=== PATIENT | female | born 1960 | race Caucasian/White ===

== ENCOUNTER → 2020-06-01 15:00 | Outpatient (BNVA) | payer OTHER, SELFPAY | PROVIDERS: PCP Internal Medicine; Visit Provider Student in an Organized Health Care Education/Training Program | DX: Z76.89 Persons encountering health services in other specified circumstances (principal) ==

== ENCOUNTER 2020-09-17 14:04 | Outpatient (REF) | payer MEDICARE, OTHER, MEDICAID, SELFPAY | END 2020-09-17 14:05 | disposition home or self-care (01) | LOC: HO.LNP 14:04 | PROVIDERS: Visit Provider Hospitalist | DX: J01.90 Acute sinusitis, unspecified (principal); Z20.822 Contact with and (suspected) exposure to COVID-19 | CPT/HCPCS: U0003; U0005 ==

== ENCOUNTER 2020-09-21 14:37 | Emergency (ER) | payer MEDICARE, MEDICAID, SELFPAY ==
--- NOTE | ~2020-09-21 | CT_ITS ---
EXAMINATION: CT ANGIOGRAM OF THE CHEST WITH AND WITHOUT CONTRAST (CT PULMONARY ANGIOGRAM FOR PE) CLINICAL INFORMATION: Reason for Exam + covid c cough and sob/chest tighness COMPARISON: CTA chest 02/11/2015, CT abdomen pelvis 12/05/2019 TECHNIQUE: Prior to contrast administration, noncontrast localization images were obtained. Subsequently, multidetector volumetric imaging was performed from the thoracic inlet to below the diaphragms following the administration of 63 mL Omnipaque 350 intravenous contrast. No contrast reaction reported Sagittal, coronal, and MIP oblique sagittal reformatted images were obtained on the CT workstation, uploaded to PACS, and reviewed. This CT examination was performed using dose optimization techniques as appropriate, variously including the following: *Automated exposure control *Adjustment of mA and/or kV according to patient size (this includes techniques or standardized protocols for targeted exams where dose is matched to indication/reason for exam; i.e. extremities or head) *Use of iterative reconstruction technique Total exam dose-length product 301 mGy-cm FINDINGS: QUALITY OF STUDY/CONTRAST BOLUS: Satisfactory. PULMONARY ARTERIES: No central or segmental pulmonary emboli. THORACIC AORTA: No aneurysm or dissection. LUNG: Multifocal peripheral groundglass infiltrates are present involving all lobes. These findings are all new when compared to the prior study. No suspicious lung masses are seen. PLEURA: No pleural effusion or pneumothorax. MEDIASTINUM: Normal heart size. No pericardial effusion. No hilar or mediastinal lymphadenopathy. No evidence of septal bowing or right heart strain. CHEST WALL/AXILLA: No axillary or internal mammary lymphadenopathy. OSSEOUS STRUCTURES: No acute or suspicious osseous abnormality. UPPER ABDOMEN: Hepatic steatosis is present in this patient status post cholecystectomy. No reflux of contrast into the hepatic veins to suggest elevated right heart pressures. CT/CT angio chest PE protocol IMPRESSION: 1. No evidence of pulmonary emboli. 2. Commonly reported imaging features of Covid 19 or viral pneumonia are present with multifocal peripheral groundglass infiltrates. Other processes such as influenza pneumonia or organizing pneumonia, as can be seen with drug toxicity and connective tissue disease, can cause a similar imaging pattern. 3. Hepatic steatosis status post cholecystectomy VTE: negative
[2020-09-21 14:42] VITALS: BP 120/69; BP 132/70; PULSE 82; PULSE 89; RESP 16; TEMP 37.4; O2SAT 95; O2SAT 98; BMI 31.1
--- NOTE | 2020-09-21 15:12 | ECG_ITS ---
Test Reason : SHORTNESS OF BREATH Blood Pressure : / mmHG Vent. Rate : 077 BPM Atrial Rate : 077 BPM P-R Int : 140 ms QRS Dur : 084 ms QT Int : 364 ms P-R-T Axes : -13 -04 183 degrees QTc Int : 411 ms Normal sinus rhythm Minimal voltage criteria for LVH, may be normal variant T wave abnormality, consider lateral ischemia Abnormal ECG When compared with ECG of 11-FEB-2015 14:36, Inverted T waves have replaced nonspecific T wave abnormality in Lateral leads Referred By: Leia Villalta Electronically Signed By:NADER MATUTE
--- NOTE | 2020-09-21 15:22 | ED_ITS ---
HPI - SOB/Dyspnea General Chief Complaint: Dyspnea Stated Complaint: SHORTNESS OF BREATH Time Seen by Provider: 09/21/20 14:47 Source: patient History of Present Illness HPI Narrative: 59-year-old female with a past medical history of chronic back pain, anxiety, depression and fibromyalgia who tested positive for COVID on 09/17/2020 at her PCPs office although started having symptoms on 09/12/2020 who is currently on Augmentin and prednisone since Thursday prescribed by her PCP presenting to the ED with complaints of worsening shortness of breath, dyspnea on exertion, orthopnea with chest tightness for the past 3-4 days worse today. Reports an associated sore throat. Denies any fevers, dizziness, lightheadedness, changes in vision, paresthesias, nausea/vomiting, abdominal pain, diarrhea, black or bloody stools, hematuria, dysuria or any other symptoms complaints or concerns at this time. Patient is not on any blood thinners. MD elicited complaint: shortness of breath, cough and pain with inspiration Pertinent past history: other (Tested positive for COVID on 09/17/2020) Onset (ago): day(s) (3-4 days) Context: recent illness (Tested positive for COVID on 09/17/2020) Timing: constant and progressively worsening Severity: moderate Exacerbating factors: lying flat, exertion, coughing, inspiration and deep breaths Relieving factors: nothing Known history of: other (Tested positive for COVID 09/17/2020) Associated symptoms: chest pain (Chest tightness), pain with inspiration, cough and orthopnea Treatment prior to arrival: other (Patient has been on Augmentin and prednisone since Thursday and no symptomatic relief) Related Data Home Medications Medication Instructions Recorded Confirmed loratadine 10 mg tablet 10 mg PO DAILY 06/01/20 09/17/20 naproxen 250 mg tablet 250 mg PO BID PRN 06/01/20 09/17/20 trazodone 50 mg tablet 50 mg PO DAILY 06/01/20 09/17/20 venlafaxine 150 mg 150 mg PO DAILY 06/01/20 09/17/20 capsule,extended release 24 hr venlafaxine 75 mg tablet 75 mg PO DAILY 06/01/20 09/17/20 Previous Rx's Medication Instructions Recorded gabapentin 300 mg capsule 300 mg PO BID 30 Days #60 cap 06/01/20 amoxicillin 875 mg-potassium 1 tab PO BID #20 tab 09/17/20 clavulanate 125 mg tablet prednisone 20 mg tablet 20 mg PO .COMPLEX #18 tab 09/17/20 acetaminophen [Tylenol Extra 1,000 mg PO QID PRN #14 tab 09/21/20 Strength] albuterol sulfate 0.63 mg INHALATION QID PRN #75 ml 09/21/20 azithromycin See Rx Instructions .ROUTE 09/21/20 .COMPLEX #6 tab codeine-guaifenesin 10 ml PO Q4-6H PRN #473 ml 09/21/20 dexamethasone [Decadron] 6 mg PO DAILY 7 Days #7 tab 09/21/20 ibuprofen 800 mg PO Q8H PRN #14 tab 09/21/20 Allergies Allergy/AdvReac Type Severity Reaction Status Date / Time No Known Allergies Allergy Verified 09/17/20 10:50 Review of Systems Review of Systems: Constitutional : + Chills, + Fatigue, + Malaise, No Weight loss, No Fever, No Night Sweats ENT/Mouth : + Sore throat, No Hearing loss, No Ear Pain, No Nasal Congestion, No Sinus Pain, No Hoarseness, No Rhinorrhea, No Swallowing Difficulty Eyes: No Eye Pain, No Swelling, No Redness, No Foreign Body, No Discharge, No Vision Changes Cardiovascular : + Chest tightness, + SOB, + MOY, + orthopnea, No Edema, No extremity swelling, No Palpitations Respiratory : No Cough, No Sputum, No Wheezing, No Dyspnea Gastrointestinal : No Nausea, No Vomiting, No Diarrhea, No abdominal Pain, No Hematochezia, No Melena Genitourinary : No irregular bleeding, No Dysuria, No Urinary Frequency, No Hematuria, No Urinary Incontinence, No Urgency, No Flank Pain, No Urinary Flow Changes, No Hesitancy Musculoskeletal : No joint pain, + Myalgias, No Joint Swelling Skin : No Skin Lesions, No rash Neuro : No Weakness, No Numbness, No Paresthesias, No Loss of Consciousness, No Dizziness, No Headache Psych : No Anxiety/Panic, No Depression, No SI/HI/AH/VH Heme/Lymph: No Bruising, No Bleeding,No Lymphadenopathy Endocrine : No Polyuria, No Polydipsia, No Temperature Intolerance Yes all other systems are reviewed and are negative [facility] Past Medical History Attestation statement: The following information was validated with the patient. Medical History Anxiety Chronic back pain Depression Fibromyalgia Homeless Social History Social History Alcohol intake: never Smoking Status: Never smoker Advance Directives: Yes Advance Directives Information Provided: Yes Advance Directives on File: No Physical Exam Vital Signs: Vital Signs: Last Vital Signs Temp 99.3 F 09/21/20 14:42 Pulse 82 09/21/20 14:42 Resp 16 09/21/20 14:42 BP 132/70 09/21/20 14:42 Pulse Ox 98 09/21/20 14:42 Body Mass Index 31.1 vital signs have been reviewed as normal and appeared to be correct. Blood pr essure normal. Heart rate normal. Respiration rate normal. Temperature normal. Oxygen saturation normal. Appearance: Alert. Oriented X3. No acute distress. Head: Normal external exam. Normocephalic. Eyes: PERRLA. EOMI. Conjunctiva and sclera normal. Eyelids normal. ENT: Pharynx normal. Uvula midline. Moist mucous membranes. No trismus noted. No drooling noted. No muffled voice noted. Neck: Normal inspection. Neck supple. FROM. No adenopathy. No meningeal signs. CVS: Normal heart rate and rhythm. Heart sound normal. No murmurs noted. Pulses normal throughout. Respiratory: No respiratory distress. Painless inspiration. Breath sounds normal. No wheezes/rales/rhonchi noted. Chest nontender. No accessory muscle usage noted or decreased air movement noted. Abdomen: Soft and nontender. Nondistended. No guarding. No rigidity. Bowel sounds normal in all 4 quadrants. No distention noted. No organomegaly noted. No visible injury noted. No rebound tenderness. Negative Rovsing sign. Negative obturator's sign. Negative psoas sign. Negative Mcintyre sign. Back: No CVA tenderness. Full range of motion noted. Skin: Skin warm and dry. Normal skin color. Normal skin turgor. No rashes/lesions/lacerations noted. Extremities: No calf tenderness noted. No lower extremity edema noted. Extremities exhibit normal range of motion. Extremities nontender. Neuro: Oriented X 3. No motor deficit. No sensory deficit. Reflexes normal. Course Course Course Narrative: 15:15pm - 59-year-old female who tested positive for COVID on 09/17/2020 presenting to the ED with complaints of dry cough with shortness of breath/dyspnea on exertion/orthopnea and chest tightness over the past 3-4 days worse today despite being on Augmentin and prednisone. Patient also reports associated sore throat. - on exam patient is alert and oriented x3. Not in any acute distress. Vital signs are stable within normal limits patient's oxygen saturation 98% on room air. No focal neuro deficits are noted. Patient goes into coughing fits otherwise lungs are clear to auscultation. No wheezes/rales/rhonchi. CV RRR. Abdomen is soft and nontender. No lower extremity edema noted. No calf tenderness noted. - Plan: Labs, CTA of chest for PE, EKG, blood cultures and lactic acid. Provide a L of IV fluids, 10 mg of Robitussin with codeine, 10 mg of IV Decadron provided 2 g of Rocephin and re-evaluate. Reevaluation(s) Reevaluation #1: - white blood cell count 07783. Patient mild anemia. D-dimer 346. Potassium 3.2. Glucose 160. ALT 33. CRP 4.41. All other labs are within normal limits. - EKG is normal sinus rhythm no acute ischemic changes are noted similar compared to prior EKG. - will replace the patient's potassium by IV potassium at this time. - patient awaiting CTA of chest for PE if negative patient can be discharged home with p.o. antibiotics and steroids with instructions to monitor her oxygen saturation to continue self isolating and to return if any new or worsening symptoms. Patient understands agrees with this plan. Time: 16:44 [facility] - SOB/Dyspnea Medical Records Attestation: I reviewed the patient's medical records. Lab Data Attestation: I reviewed the patient's lab results. Result diagrams: 09/21/20 15:53 09/21/20 15:52 Labs: Lab Results 09/21/20 09/21/20 Range/Units 15:53 15:53 WBC 11.1 H (4.8-10.8) X10*3/uL RBC 4.11 L (4.20-5.50) X10*6/uL Hgb 11.8 L (12.0-16.0) g/dl Hct 35.4 L (37-47) % MCV 86.1 (80-98) fL MCH 28.7 (27.0-33.0) pg MCHC 33.3 (31.0-35.0) g/dl RDW 13.5 (11.0-16.0) % Plt Count 256 (160-400) X10*3/uL MPV 9.5 (9.4-12.3) fL Immature Gran % (Auto) 0.7 H (0.0-0.4) % Neut % (Auto) 89.1 H (45-73) % Lymph % (Auto) 5.9 L (20-40) % Cataño % (Auto) 4.2 (2-11) % Eos % (Auto) 0.0 (0-4) % Baso % (Auto) 0.1 (0-2) % Lymph # (Auto) 0.7 L (1.2-4.9) X10*3/uL Cataño # (Auto) 0.5 (0.1-1.2) X10*3/uL Eos # (Auto) 0.0 (0.0-0.4) X10*3/uL Baso # (Auto) 0.0 (0.0-0.2) X10*3/uL Abs Immat Gran (auto) 0.08 H (0.00-0.03) X10*3/uL Absolute Neuts (auto) 9.9 H (2.0-8.3) X10*3/uL Absolute Nucleated RBC 0.000 (0.0-0.012) X10*3/uL Nucleated RBC % (auto) 0.0 (0.0-0.2) /100WBC PT 14.1 H (10.8-13.0) SEC INR 1.2 H (0.9-1.1) APTT 24.3 (24.1-38.0) SEC D-Dimer 346 NG/ML ECG Data Attestation: I personally reviewed and interpreted this ECG as follows: ECG interpretation date: 09/21/20 ECG interpretation time: 15:30 Interpretation: Normal sinus rhythm ventricular rate of 77 with minimal voltage criteria for LVH may be normal variant with T-wave abnormalities no acute is chemic changes are noted today. Similar when compared to prior EKG on 02/11/2015 Critical Care Time Critical Care Time Critical Care Time: Yes Total Critical Care Time: 60 Attestation: I personally attest to this time spent taking care of the patient Discharge Plan Discharge Clinical Impression: COVID-19 Instructions: COVID-19 (Coronavirus Disease 2019) (ED) Prescriptions: New albuterol sulfate 0.63 mg/3 mL solution for nebulization 0.63 mg inhalation QID PRN (Reason: shortness of breath or wheezing) Qty: 75 RF: 0 azithromycin 250 mg tablet See Rx Instructions .ROUTE .COMPLEX Qty: 6 RF: 0 acetaminophen [Tylenol Extra Strength] 500 mg tablet 1,000 mg PO QID PRN (Reason: fever or pain) Qty: 14 RF: 0 ibuprofen 800 mg tablet 800 mg PO Q8H PRN (Reason: pain) Qty: 14 RF: 0 codeine-guaifenesin 10-200 mg/5 mL liquid 10 ml PO Q4-6H PRN (Reason: cough) Qty: 473 RF: 0 dexamethasone [Decadron] 6 mg tablet 6 mg PO DAILY 7 Days Qty: 7 RF: 0 No Action gabapentin 300 mg capsule 300 mg PO BID 30 Days Qty: 60 RF: 2 prednisone 20 mg tablet 20 mg PO .COMPLEX Qty: 18 RF: 0 amoxicillin-pot clavulanate [Augmentin] 875-125 mg tablet 1 tab PO BID Qty: 20 RF: 0 venlafaxine [Effexor XR] 150 mg capsule,extended release 24hr 150 mg PO DAILY RF: 0 venlafaxine 75 mg tablet 75 mg PO DAILY RF: 0 naproxen 250 mg tablet 250 mg PO BID PRNRF: 0 trazodone 50 mg tablet 50 mg PO DAILY RF: 0 loratadine [Claritin] 10 mg tablet 10 mg PO DAILY RF: 0 Referrals: Dunia Guajardo MD [Primary Care Provider] - 2 days Print Language: Croatian
[2020-09-21] MEDS: cefTRIAXone sodium 2 GM in 0.9 % Sodium Chloride 50 ML IV (15:57)
[2020-09-21] MEDS: 0.9 % Sodium Chloride 1,000 ML 999 ML IVCONT (15:57)
[2020-09-21] MEDS: guaiFEN/Codeine SF 200/20/10ML 10 ML LIQUID PO (15:58)
[2020-09-21] MEDS: Acetaminophen 325 MG TABLET 975 MG PO (15:58)
[2020-09-21 16:06] LABS: Basophils Percent Auto 0.1 % (0-2); Hematocrit 35.4 % (37-47); Hemoglobin 11.8 g/dl (12.0-16.0); Imm Gran Abs Auto 0.08 X10*3/uL (0.00-0.03); Imm Gran Pct Auto 0.7 % (0.0-0.4); Lymphocytes Absolute Auto 0.7 X10*3/uL (1.2-4.9); Lymphocytes Percent Auto 5.9 % (20-40); MANUAL DIFF FLAG SCAN; Mean Corpuscular HGB Conc 33.3 g/dl (31.0-35.0); Mean Corpuscular Hemoglobin 28.7 pg (27.0-33.0); Mean Corpuscular Volume 86.1 fL (80-98); Mean Platelet Volume 9.5 fL (9.4-12.3); Monocytes Absolute Auto 0.5 X10*3/uL (0.1-1.2); Monocytes Percent Auto 4.2 % (2-11); Neutrophils Absolute Auto 9.9 X10*3/uL (2.0-8.3); Neutrophils Percent Auto 89.1 % (45-73); Platelet Count 256 X10*3/uL (160-400); Red Blood Count 4.11 X10*6/uL (4.20-5.50); Red Cell Distribution Width 13.5 % (11.0-16.0); SCAN SMEAR FLAG 1; White Blood Count 11.1 X10*3/uL (4.8-10.8)
[2020-09-21 16:22] LABS: INTERNATIONAL NORM RATIO 1.2 (0.9-1.1); Prothrombin Time 14.1 SEC (10.8-13.0)
[2020-09-21 16:25] LABS: D Dimer 346 NG/ML; Partial Thromboplastin Time 24.3 SEC (24.1-38.0)
[2020-09-21 16:37] LABS: Alanine Aminotransferase 33 U/L (0-31); Albumin Level 3.4 g/dL (3.5-5.0); Alkaline Phosphatase 111 U/L (39-117); Anion Gap 11 (12-20); Aspartate Amino Transferase 26 U/L (5-31); Bilirubin Total 0.3 mg/dL (0.0-1.0); Blood Urea Nitrogen 13 mg/dL (9-16); C Reactive Protein 4.41 mg/dL (< or = 0.50); Calcium 8.4 mg/dL (8.4-10.2); Carbon Dioxide 27 mmol/L (22-29); Chloride 104 mmol/L (96-108); Estimated Glomerular Filt Rate > 60; Glucose Random 160 mg/dL (60-115); Lactate Dehydrogenase 197 U/L (122-220); Potassium 3.2 mmol/L (3.3-5.1); Sodium 139 mmol/L (135-145); Total Protein 6.3 g/dL (6.5-8.0)
[2020-09-21 16:37] LABS: SLIDE REVIEW VERIFIED
[2020-09-21 16:42] LABS: B Type Natriuretic Peptide 58 pg/mL (<100); Troponin-I High Sensitivity < 3.5 ng/L (<3.5-17.0)
[2020-09-21 16:43] LABS: Influenza A PCR NEGATIVE (Negative); Influenza B PCR NEGATIVE (Negative); Resp Syncy Virus RNA Qual PCR NEGATIVE (Negative); SARS COV2 PCR INHOUSE POSITIVE (Negative)
[2020-09-21 16:56] LABS: Ferritin 157 ng/mL (10-250); Procalcitonin 0.02 ng/mL
[2020-09-21 17:13] LABS: Glucose Urine UA NEG (NEG); Leukocyte Esterase Urine NEG (NEG); Nitrite Urine NEG (NEG); Specific Gravity - Urine <= 1.005 (1.005-1.025); Urine Blood NEG (NEG); Urine Ketones NEG (NEG); Urine Protein NEG (NEG-TRACE)
[2020-09-21 17:15] VITALS: BP 103/65; PULSE 93; RESP 20; TEMP 36.8; O2SAT 97
[2020-09-21] MEDS: iohexoL 350 MG/ML 100 ML INFUS..BTL IV (17:15)
[2020-09-21 17:16] LABS: Color Urine STRAW
[2020-09-21 17:17] LABS: Appearance Urine CLEAR
[2020-09-21] MEDS: Potassium Chloride/H20 10 MEQ/100 ML PIGGYBACK 100 MEQ IV (17:33)
[2020-09-21] MEDS: Albuterol Sulfate 90 MCG 8 GM INHALER 4 PUFF INHALE (18:12)
[2020-09-21 18:13] VITALS: PULSE 67; O2SAT 96
[2020-09-21] MEDS: Potassium Chloride ER 20 MEQ TAB.ER.PRT 40 MEQ PO (19:29)
--- NOTE | 2020-09-21 19:39 | PC.NURSE ---
pt unable to tolerate Iv potassium- less than 1/2 infused, given po.
== END 2020-09-21 19:40 | disposition home or self-care (01) ==
PROVIDERS: Physician Assistant Medical; Emergency Provider Emergency Medicine; PCP Internal Medicine
DX: U07.1 COVID-19 (principal); R06.02 Shortness of breath
CPT/HCPCS: 0241U; 36415; 71275; 80053; 81003; 82728; 83615; 83735; 83880; 84145; 84484; 85025; 85379; 85610; 85730; 86140; 87040; 87071; 87880; 93005; 94640; 96361; 96365; 96367; 96375; 99283; 99291; J0696; J1100; Q9967

== ENCOUNTER 2021-01-04 12:18 | Outpatient (REF) | payer MEDICARE, MEDICAID, SELFPAY ==
--- NOTE | ~2021-01-04 | MM_ITS ---
EXAMINATION: MM SCREENING DIGITAL BREAST TOMOSYNTHESIS, BILATERAL CLINICAL INFORMATION: Screening. Asymptomatic. The lifetime risk of breast cancer based on the Tyrer-Cuzick Model is 7%. COMPARISON: Mammography: 7 01/06/2019, 12/09/2017, 10/01/2016 TECHNIQUE: Digital breast tomosynthesis is performed in both the craniocaudal and mediolateral oblique views along with computer-aided detection (CAD). Synthesized 2D images are generated from the tomosynthesis. Additional bilateral CC views are provided. FINDINGS: There are scattered areas of fibroglandular density (ACR BI-RADS breast composition Category b). There are no significant masses, abnormal calcifications, or other abnormalities. Dermal lesion again noted posterior upper outer left breast. The axilla and skin contours are unremarkable. No significant changes. MM/MM tomosynthesis screening BI IMPRESSION: There are no significant changes from prior study. ASSESSMENT: BI-RADS 2: Benign RECOMMENDATION: Routine annual mammography screening. This patient's information was entered into a reminder system with a target due date for their next mammogram.
== END 2021-01-04 12:19 | disposition home or self-care (01) ==
LOC: HO.MAMMO 12:18
PROVIDERS: Visit Provider Internal Medicine
DX: Z12.31 Encounter for screening mammogram for malignant neoplasm of breast (principal)
CPT/HCPCS: 77063; 77067

== ENCOUNTER 2021-04-10 13:57 | Outpatient (REF) | payer MEDICARE, MEDICAID, SELFPAY ==
--- NOTE | ~2021-04-10 | XR_ITS ---
EXAMINATION: XR SHOULDER, RIGHT CLINICAL INFORMATION: Pain in right shoulder COMPARISON: 12/10/2017 TECHNIQUE: AP external rotation, Grashey, scapular Y, and axillary views of the right shoulder. FINDINGS: No fracture or dislocation. The glenohumeral joint is well aligned. The joint space is maintained. The acromioclavicular joint is intact with mild hypertrophic degenerative change. The visualized lung is clear. The visualized ribs are intact. XR/XR shoulder RT min 2V IMPRESSION: Mild degenerative changes at the acromioclavicular joint.
--- NOTE | ~2021-04-10 | XR_ITS ---
EXAMINATION: XR LUMBOSACRAL SPINE CLINICAL INFORMATION: Lower back pain COMPARISON: 11/30/1949 TECHNIQUE: Three views of the lumbosacral spine. FINDINGS: Right upper quadrant surgical clips. No fracture or subluxation. Slight dextroscoliosis. Vertebral body height and alignment otherwise maintained. Disc spaces are mostly maintained. Small multilevel endplate osteophytes throughout with facet arthropathy. The sacroiliac joints are symmetric. The sacrum is intact. Nonobstructive bowel gas pattern. XR/XR lumbar spine 2-3V IMPRESSION: Mild degenerative changes throughout the lumbar spine, somewhat progressed from 2015.
== END 2021-04-10 13:58 | disposition home or self-care (01) ==
LOC: HO.XRAY 13:57
PROVIDERS: PCP Internal Medicine; Visit Provider Nurse Practitioner Family
DX: M54.50 Low back pain, unspecified (principal); M25.511 Pain in right shoulder; M79.7 Fibromyalgia; F41.8 Other specified anxiety disorders; Z79.899 Other long term (current) drug therapy
CPT/HCPCS: 72100; 73030; 99212

== ENCOUNTER 2021-05-31 14:00 | Outpatient (RCR) | payer MEDICARE, MEDICAID, SELFPAY ==
--- NOTE | 2021-05-13 15:03 | MHC.PT.EP ---
[facility] [place] Office [place] Office [place] Office [address] [phone] F: [phone] F: [phone] F: [phone] F: [phone] Physical Therapy Plan of Care Date of Evaluation: Date of Surgery: n/a Diagnosis: low back pain Assessment: Patient is a 60 year old R handed female who presents with s/s consistent with low back pain. She is on disability. She notes she has a tough time standing or sitting for long periods of time. Patient past medical history includes fibromyalgia. Current impairments include pain, flexibility, ROM, strength, activity tolerance and functional mobility. Functional limitations include decreased ability to walk, stand, transfer, negotiate stairs, and perform weight bearing activities.. Patient is motivated with good rehab potential. Skilled PT will address impairments and functional limitations in order to achieve goals. Frequency and Duration: The patient will be seen 2x/week for 5 weeks Short Term Goals: I with HEP - 2 weeks stable innom - 3 weeks hip strength 4/5 b/l hip abd - 3 weeks Cider [employer] Goals: hip abd 4+/5 b/l hip abd - 5 weeks Demo proper squat, lift, supine/sit mechanics in absence of cues - 5 weeks Oswestry 20% or less - 5 weeks Treatment Plan: Modalities to reduce pain, spasms and effusion. Manual therapy to restore motion and function. Therapeutic exercise to improve strength and flexibility. Neuromuscular re-education for posture and balance. Therapeutic activities to return to functional activities of daily living. Electronically signed by: Konstantin Alva, PT Please sign and return to therapist. Thank you for your referral.
--- NOTE | 2021-10-16 08:50 | MHC.PT.DC ---
[facility] [place] Office [place] Office [place] Office [address] [phone] F: [phone] F: [phone] F: [phone] F: [phone] Physical Therapy Discharge Report Diagnosis: low back pain Date of Surgery: n/a Date of Evaluation: 05/13/21 Date of Discharge: 05/31/21 Treatments to Date: 2 Cancellations to Date: No Shows to Date: Discharge Status: Patient Elected to Stop Discharge Summary: HELD PT at this time. 05/31/21: pt progressing well overall with good activity tolerance. unable to attend last week due to covid exposure. we will progress HEP NV. Patient is a 60 year old R handed female who presents with s/s consistent with low back pain. She is on disability. She notes she has a tough time standing or sitting for long periods of time. Patient past medical history includes fibromyalgia. Current impairments include pain, flexibility, ROM, strength, activity tolerance and functional mobility. Functional limitations include decreased ability to walk, stand, transfer, negotiate stairs, and perform weight bearing activities.. Patient is motivated with good rehab potential. Skilled PT will address impairments and functional limitations in order to achieve goals. Electronically signed by: Konstantin Alva, PT Please sign and return to therapist. Thank you for your referral.
== END 2021-10-16 08:51 | disposition home or self-care (01) ==
LOC: HO.PTCHIC 14:00
PROVIDERS: PCP Internal Medicine; Visit Provider Nurse Practitioner Family
DX: M54.50 Low back pain, unspecified (principal); M25.511 Pain in right shoulder
CPT/HCPCS: 97110; 97140; 97161

== ENCOUNTER 2021-08-07 14:51 | Outpatient (REF) | payer MEDICARE, MEDICAID, SELFPAY ==
[2021-08-07 16:35] LABS: MANUAL DIFF FLAG NO
[2021-08-07 16:39] LABS: Basophils Percent Auto 0.5 % (0-2); Eosinophils Absolute Auto 0.2 X10*3/uL (0.0-0.4); Eosinophils Percent Auto 2.3 % (0-4); Hematocrit 41.7 % (37.0-47.0); Hemoglobin 13.8 g/dl (12.0-16.0); Imm Gran Abs Auto 0.05 X10*3/uL (0.00-0.03); Imm Gran Pct Auto 0.6 % (0.0-0.4); Lymphocytes Absolute Auto 2.4 X10*3/uL (1.2-4.9); Lymphocytes Percent Auto 26.9 % (20-40); Mean Corpuscular HGB Conc 33.1 g/dl (31.0-35.0); Mean Corpuscular Hemoglobin 29.1 pg (27.0-33.0); Mean Platelet Volume 10.1 fL (9.4-12.3); Monocytes Absolute Auto 0.7 X10*3/uL (0.1-1.2); Monocytes Percent Auto 8.2 % (2-11); Neutrophils Absolute Auto 5.5 x10*3/uL (2.0-8.3); Neutrophils Percent Auto 61.5 % (45-73); Platelet Count 262 X10*3/uL (160-400); Red Blood Count 4.74 X10*6/uL (4.20-5.50); Red Cell Distribution Width 13.9 % (11.0-16.0); White Blood Count 8.9 X10*3/uL (4.8-10.8)
[2021-08-07 17:07] LABS: Alanine Aminotransferase 17 U/L (0-31); Albumin Level 4.1 g/dL (3.5-5.0); Alkaline Phosphatase 156 U/L (39-117); Anion Gap 15 (12-20); Aspartate Amino Transferase 19 U/L (5-31); Bilirubin Total 0.6 mg/dL (0.0-1.0); Blood Urea Nitrogen 15 mg/dL (9-16); Calcium 9.8 mg/dL (8.4-10.2); Carbon Dioxide 26 mmol/L (22-29); Chloride 102 mmol/L (96-108); Cholesterol 197 mg/dL; Estimated Glomerular Filt Rate > 60; Glucose Fasting 113 mg/dL (60-99); HDL Cholesterol 51 mg/dL; LDL Cholesterol Calculated 128 mg/dl; Potassium 4.2 mmol/L (3.3-5.1); Sodium 139 mmol/L (135-145); Total Protein 7.6 g/dL (6.5-8.0); Triglycerides 91 mg/dL
[2021-08-07 17:27] LABS: TSH reflex Free T4 1.89 uIU/mL (0.32-4.0)
== END 2021-08-07 14:52 | disposition home or self-care (01) ==
LOC: HO.HMGCLDS 14:51
PROVIDERS: Visit Provider Internal Medicine
DX: Z00.01 Encounter for general adult medical examination with abnormal findings (principal); G47.9 Sleep disorder, unspecified; F33.9 Major depressive disorder, recurrent, unspecified; M54.50 Low back pain, unspecified
CPT/HCPCS: 36415; 80053; 80061; 84443; 85025

== ENCOUNTER → 2021-10-11 14:26 | Outpatient (BNVA) | payer MEDICARE, MEDICAID, SELFPAY | PROVIDERS: PCP Internal Medicine; Visit Provider Nurse Practitioner Family | DX: M25.511 Pain in right shoulder (principal); M54.50 Low back pain, unspecified; M79.7 Fibromyalgia | CPT/HCPCS: 99212 ==

== ENCOUNTER 2022-01-09 14:00 | Outpatient (REF) | payer MEDICARE, MEDICAID, SELFPAY ==
--- NOTE | ~2022-01-09 | MM_ITS ---
EXAMINATION: MM SCREENING DIGITAL BREAST TOMOSYNTHESIS, BILATERAL CLINICAL INFORMATION: Screening. Asymptomatic. The lifetime risk of breast cancer based on the Tyrer-Cuzick Model is 6%. COMPARISON: Mammography: 01/04/2021, 01/06/2019, 12/09/2017 TECHNIQUE: Digital breast tomosynthesis is performed in both the craniocaudal and mediolateral oblique views along with computer-aided detection (CAD). Synthesized 2D images are generated from the tomosynthesis. FINDINGS: There are scattered areas of fibroglandular density (ACR BI-RADS breast composition Category b). There are no significant masses, abnormal calcifications, or other abnormalities. Parenchymal pattern is similar to prior studies. Dermal lesion again noted overlying posterior upper outer left breast. The axilla are unremarkable. There are no significant changes. MM/MM tomosynthesis screening BI IMPRESSION: No mammographic evidence of malignancy. ASSESSMENT: BI-RADS 2: Benign RECOMMENDATION: Routine annual mammography screening. This patient's information was entered into a reminder system with a target due date for their next mammogram.
== END 2022-01-09 14:01 | disposition home or self-care (01) ==
LOC: HO.MAMMO 14:00
PROVIDERS: PCP Internal Medicine; Visit Provider Internal Medicine
DX: Z12.31 Encounter for screening mammogram for malignant neoplasm of breast (principal)
CPT/HCPCS: 77063; 77067

== ENCOUNTER 2022-04-10 15:29 | Outpatient (REF) | payer MEDICARE, MEDICAID, SELFPAY ==
--- NOTE | ~2022-04-10 | XR_ITS ---
EXAMINATION: XR SHOULDER, LEFT CLINICAL INFORMATION: Left shoulder pain. COMPARISON: None TECHNIQUE: AP external rotation, Grashey, scapular Y, and axillary views of the left shoulder. FINDINGS: There is calcification in the supraspinatus tendon indicative of tendinitis/tendinosis. The bones and soft tissues are otherwise unremarkable. No fracture. Glenohumeral and acromioclavicular alignment is anatomic with normal joint space. XR/XR shoulder LT min 2V IMPRESSION: Calcific tendinitis/tendinosis left shoulder.
[2022-04-10 16:39] LABS: Alanine Aminotransferase 22 U/L (0-31); Albumin Level 4.3 g/dL (3.5-5.0); Alkaline Phosphatase 149 U/L (39-117); Anion Gap 15 (12-20); Aspartate Amino Transferase 23 U/L (5-31); Bilirubin Total 0.3 mg/dL (0.0-1.0); Blood Urea Nitrogen 16 mg/dL (9-16); Calcium 9.6 mg/dL (8.4-10.2); Carbon Dioxide 26 mmol/L (22-29); Chloride 104 mmol/L (96-108); Estimated Glomerular Filt Rate > 60; Glucose Random 107 mg/dL (60-115); Potassium 4.5 mmol/L (3.3-5.1); Sodium 140 mmol/L (135-145); Total Protein 7.6 g/dL (6.5-8.0)
== END 2022-04-10 15:30 | disposition home or self-care (01) ==
LOC: HO.LAB 15:29
PROVIDERS: PCP Internal Medicine; Visit Provider Nurse Practitioner Family
DX: M79.7 Fibromyalgia (principal); M25.511 Pain in right shoulder; M25.512 Pain in left shoulder; M54.50 Low back pain, unspecified
CPT/HCPCS: 36415; 73030; 80053; 99212

== ENCOUNTER 2022-05-05 14:00 | Outpatient (REF) | payer MEDICARE, MEDICAID, SELFPAY ==
--- NOTE | 2022-05-05 17:14 | PFT_ITS ---
INDICATION: Shortness of breath. SPIROMETRY: FEV1 to FVC of 86% with an FEV1 of 2.63 L, which is 111% predicted. FVC of 3.07 L, which is 102% predicted. No significant response to bronchodilators noted. Maximum voluntary ventilation 117% predicted. LUNG VOLUMES: Total lung capacity 93% of predicted with an expiratory reserve volume of 64% predicted. DIFFUSION CAPACITY: DLCO 81% predicted. COMPARISONS: None. INTERPRETATION: No obstructive nor restrictive ventilatory defects identified. No significant response to bronchodilators noted. Normal maximum voluntary ventilation. Lung volumes are within normal limits. Diffusion capacity also within normal limits. Clinical correlation warranted. No clear explanations for the patient's symptoms based on these PFTs. To Britton MD MR/MODL / [id number]
== END 2022-05-05 14:01 | disposition home or self-care (01) ==
LOC: HO.RESP 14:00
PROVIDERS: PCP Internal Medicine; Visit Provider Nurse Practitioner Family
DX: R06.02 Shortness of breath (principal)
CPT/HCPCS: 94060; 94727; 94729

== ENCOUNTER 2022-05-15 17:24 | Inpatient (IN) | payer MEDICARE, MEDICAID, SELFPAY ==
--- NOTE | ~2022-05-15 | CT_ITS ---
EXAMINATION: CT ABDOMEN AND PELVIS WITH CONTRAST CLINICAL INFORMATION: Abdominal pain. COMPARISON: 05/15/2022 TECHNIQUE: Multidetector volumetric images were obtained from the superior aspect of the liver through the pubic symphysis following administration 85 mL of Omnipaque 350 intravenous contrast. Sagittal and coronal reformatted images were obtained on the technologist's workstation. Oral contrast: No This CT examination was performed using dose optimization techniques as appropriate, variously including the following: *Automated exposure control *Adjustment of mA and/or kV according to patient size (this includes techniques or standardized protocols for targeted exams where dose is matched to indication/reason for exam; i.e. extremities or head) *Use of iterative reconstruction technique DLP: 573 mGy-cm FINDINGS: LUNG BASES: Unremarkable. LIVER: Liver has normal size and contour. The liver parenchyma has attenuation approximately 30 Hounsfield units lower than the spleen on these portal venous phase images; this suggests presence of diffuse steatosis. No evidence of liver mass. GALLBLADDER AND BILIARY TREE: Gallbladder is surgically absent. No dilated bile ducts. PANCREAS: Normal. No edema, pancreatic ductal dilatation or mass. SPLEEN: Normal. ADRENAL GLANDS: Normal. KIDNEYS AND URETERS: The kidneys have normal size and cortical thickness. No perinephric edema or fluid collection. No urolithiasis or hydroureteronephrosis. BLADDER: Normal. No calculi or wall thickening. BOWEL AND PERITONEUM: Stomach and small bowel are unremarkable. The terminal ileum has a normal appearance. No dilated bowel loops. There is suboptimal distention of the colon, including ascending colon. However, the gaseous distention of this portion of the colon is improved compared to 05/15/2022. There is no edematous thickening of the bowel black. No findings of colitis. There is possible thickening of mucosa of the proximal ascending colon without involvement of the ileocecal valve or the cecum, but evaluation is difficult due to lack of colonic distention and presence of intraluminal fluid (coronal reformatted images 12-18 of 76, series 5; sagittal reformatted image 83, series 6). This area of concern is approximately 4.5 cm in length. It is uncertain whether there is any underlying colonic neoplasia in this area. If the patient has not recently undergone colonoscopy, then recommend colonoscopic examination. Again noted is a mild adjacent vascular engorgement and clustered lymph nodes in the mesentery, largest mesenteric lymph node 0.8 cm short axis dimension. The hepatic flexure of the colon is underdistended but without gross abnormality. The descending colon, sigmoid colon and rectum are unremarkable. ABDOMINAL WALL: Minimal protrusion of fat into the umbilicus. VASCULATURE: Unremarkable. LYMPH NODES: No retroperitoneal, iliac or inguinal lymphadenopathy. A lymph node in the periportal region is 1 cm in short axis dimension. Again, there are clustered mesenteric lymph nodes posterior to the ascending colon, largest 0.8 cm short axis dimension. PELVIC VISCERA: Uterus and adnexa are unremarkable. No pelvic free fluid. MUSCULOSKELETAL: No new skeletal findings compared to 05/15/2022. CT/CT abdomen pelvis w IV con IMPRESSION: * The ascending colon is not optimally distended, and there is possible mucosal thickening in a segment of the ascending colon. The suspicion for mucosal disease in the ascending colon is elevated due to the findings of mild vascular congestion and mild lymphadenopathy in the adjacent mesentery. If not already performed, consider further evaluation with colonoscopy. Colonic neoplasia is not excluded on this test. * Diffuse hepatic steatosis. Consider correlation with liver function tests. A mildly enlarged lymph node of 1 cm short axis dimension in the periportal region could be reactive to liver disease.
--- NOTE | ~2022-05-15 | CT_ITS ---
EXAMINATION: CT ABDOMEN AND PELVIS WITHOUT CONTRAST CLINICAL INFORMATION: Right suprapubic pain. COMPARISON: CT abdomen/pelvis 12/05/2019. TECHNIQUE: Multidetector volumetric imaging was performed from the superior aspect of the liver through the pubic symphysis. Sagittal and coronal reformatted images were obtained on the technologist's workstation. This CT examination was performed using dose optimization techniques as appropriate, variously including the following: *Automated exposure control *Adjustment of mA and/or kV according to patient size (this includes techniques or standardized protocols for targeted exams where dose is matched to indication/reason for exam; i.e. extremities or head) *Use of iterative reconstruction technique DLP: 606 mGy-cm FINDINGS: LUNG BASES: No focal consolidation or pleural effusion. LIVER, GALLBLADDER, AND BILIARY TREE: Decreased attenuation of the liver parenchyma suggesting the presence of hepatic steatosis. No discrete focal liver lesion noted in this limited noncontrast examination. Cholecystectomy. No biliary ductal dilatation. PANCREAS: Limited noncontrast examination, unremarkable. SPLEEN: Limited noncontrast examination, unremarkable. ADRENAL GLANDS: No adrenal mass. KIDNEYS AND URETERS: Limited noncontrast examination. No nephrolithiasis or hydronephrosis. BLADDER: Decompressed and suboptimally assessed. GASTROINTESTINAL TRACT: There is abnormal wall thickening of the ascending colon extending from the cecum to the level of the hepatic flexure; the ileocecal valve appears as well involved. There are several abnormal appearing rounded pericolonic lymph nodes, for instance measuring 9 mm on image 48, series 3. There is associated regional mesenteric vasculature engorgement. The stomach and the small bowel are nondilated. ABDOMINAL WALL: Small fat-containing umbilical hernia. LYMPH NODES: Abnormal appearance of pericolonic soft tissue nodules/lymph nodes surrounding the ascending colon. There are enlarged periportal lymph nodes which are nonspecific in the setting of hepatic steatosis. VASCULAR: Limited noncontrast examination. Abdominal aorta is of normal caliber. PELVIC VISCERA: Unremarkable. OSSEOUS STRUCTURES: Prominent Schmorl's nodule along the superior endplate of L3. Multilevel degenerative changes of the spine. No destructive appearing osseous lesions. CT/CT abdomen pelvis wo IV con IMPRESSION: Findings are highly suspicious for a colonic neoplasm of the ascending colon with possible extension into the ileocecal valve. The mass abuts the liver surface, however evaluation of metastatic disease is limited in this noncontrast examination. Recommend consultation with GI oncologist. There are abnormal lymph nodes and engorgement of the pericolonic vasculature at the site of the mass, concerning for transmural extension. As above, this examination is not targeted for staging. There are enlarged nonspecific periportal lymph nodes. Hepatic steatosis. This critical result was discussed with Gomez RAMOS at 05/15/2022 7:47 PM and it was ascertained that the content and urgency of the report was understood at the time of direct communication.
[2022-05-15 18:17] VITALS: BP 151/81; PULSE 94; RESP 18; TEMP 36.8; O2SAT 97; BMI 31.8
--- NOTE | 2022-05-15 18:21 | ED.GENADULT ---
HPI - General Adult General Chief complaint: Extremity Injury, Lower Stated complaint: pelvic pain Time Seen by Provider: 05/15/22 20:24 Related Data Home Medications Medication Instructions Recorded Confirmed venlafaxine 150 mg 150 mg PO DAILY 06/01/20 05/15/22 capsule,extended release 24 hr (Effexor XR) naproxen sodium 220 mg tablet 220 mg PO Q12H PRN Pain 10/11/21 05/15/22 (Aleve) trazodone 50 mg tablet 50 mg PO BEDTIME 10/11/21 05/15/22 lorazepam 1 mg tablet 0.5 mg PO DAILY PRN Anxiety 04/10/22 05/15/22 calcium carbonate 600 mg calcium 600 mg PO DAILY 05/15/22 05/15/22 (1,500 mg) tablet cholecalciferol (vitamin D3) 25 25 mcg PO DAILY 05/15/22 05/15/22 mcg (1,000 unit) tablet gabapentin 300 mg capsule 300 mg PO TID 05/15/22 05/15/22 vitamin B complex 1 tab PO DAILY 05/15/22 05/15/22 Allergies Allergy/AdvReac Type Severity Reaction Status Date / Time No Known Allergies Allergy Verified 04/10/22 14:53 PMFSH Past Medical History Medical History Anxiety Chronic back pain Depression Fibromyalgia Homeless Surgical History Hx of appendectomy Hx of cholecystectomy Family History Family History Mother Kidney cancer Father Medical history unknown Other Mental health disorder Social History Social History Household Members: Children Household Members Other:: 1 Housing: Apartment Do you presently have visiting nurse or other home services: No Alcohol intake: never Patient Tobacco Use Status: Former Tobacco user Tobacco use type: Cigarette Smoked in Last 30 Days: No e-Cigarette/Vaping Use: Never Used Patient Interested in Nicotine Replacement: No Patient Given Instructions on How to Stop Smoking: No Second Hand Smoke Exposure: No Use of substances other than those prescribed or required for medical reasons: No Currently Displaying Signs/Symptoms of Drug Intoxication Withdrawal: No Any prior treatment program specific to substance use: No Have you been hit, kicked, punched, or otherwise hurt by someone within the past year? If so, by whom?: No Do you feel safe in your current relationship?: No Current Relationship Is there a partner from a previous relationship who is making you feel unsafe now?: No Are you made to feel afraid or neglected: No Advance Directives: No Advance Directives Information Provided: No Do you have thoughts of harming others: None Do you have a plan to hurt others: No Plan Recently lost weight without trying: No Eating poorly because of decreased appetite: No Nutrition Risks: No Nutritional Risk Patient : No : No Poor oral hygiene: No Current occupational status: disabled Physical Exam ED Vital Signs: Vital Signs - 24 hr 05/15/22 18:17 05/15/22 21:09 Temperature 98.2 F 98.5 F Pulse Rate 94 81 Respiratory Rate 18 16 Blood Pressure 151/81 H 137/81 Pulse Oximetry 97 95 Oxygen Delivery Method Room Air Room Air BMI result Body Mass Index 31.8 Course Course Course Narrative: ISREAL: RIght suprapubic/hip pain since thursday. Pain on movement. Patient states no trauma. Patient states no urinary symptoms. FEmoral and pedal pulses intact. normal color of lower extremities. labs, UA, and CT scan of abdome/pelvis ordered. patient states no vaginal bleeding or pmh of ovarian cysts/fibroids. Medications Administered Generic Name Dose Route Start Last Admin Trade Name Freq PRN Reason Stop Dose Admin Heparin Sodium (Porcine) 5,000 unit 05/15/22 23:00 05/15/22 23:39 Heparin Sodium,Porcine 5,000 Unit/Ml Vial SUBCUT 5,000 unit Q12H MINDY Administration Sodium Chloride 3 ml 05/16/22 00:00 05/16/22 00:11 0.9 % Sodium Chloride Flush 3 Ml Syringe IVFLUSH Not Given QSHIFT MINDY Discontinued Medications Generic Name Dose Route Start Last Admin Trade Name Freq PRN Reason Stop Dose Admin Sodium Chloride 1,000 mls @ 999 mls/hr 05/15/22 21:00 05/16/22 01:17 Ns IVCONT 05/15/22 22:00 Infused .Q1H1M MINDY Infusion Ceftriaxone Sodium 1 gm/ 50 mls @ 100 mls/hr 05/15/22 20:59 05/16/22 00:00 Sodium Chloride IV 05/15/22 21:28 Infused ONCE ONE Infusion Lorazepam 1 mg 05/15/22 21:23 05/15/22 22:07 Lorazepam 1 Mg Tablet PO 05/15/22 21:24 1 mg ONCE ONE Administration Morphine Sulfate 4 mg 05/15/22 21:23 05/15/22 22:06 Morphine Sulfate 4 Mg/Ml Cartridge IVPUSH 05/15/22 21:24 4 mg ONCE ONE Administration Protocol Ondansetron HCl 4 mg 05/15/22 21:23 05/15/22 22:06 Ondansetron Hcl 4 Mg/2 Ml Vial IVPUSH 05/15/22 21:24 4 mg ONCE ONE Administration Polyethylene Glycol/Electrolytes 4,000 ml 05/15/22 21:45 05/15/22 23:39 Peg 3350/Na Sulf,Bicarb,Cl/Kcl 4,000 Ml Soln.Recon PO 05/15/22 21:46 4,000 ml ONCE ONE Administration Medical Decision Making Lab Data Result diagrams: 05/15/22 19:35 05/15/22 19:35 Labs: Lab Results 05/15/22 05/15/22 05/15/22 Range/Units 19:35 19:35 19:35 WBC 10.5 (4.8-10.8) X10*3/uL RBC 4.67 (4.20-5.50) X10*6/uL Hgb 13.7 (12.0-16.0) g/dl Hct 40.7 (37.0-47.0) % MCV 87.2 (80.0-98.0) fL MCH 29.3 (27.0-33.0) pg MCHC 33.7 (31.0-35.0) g/dl RDW 13.9 (11.0-16.0) % Plt Count 211 (160-400) X10*3/uL MPV 9.6 (9.4-12.3) fL Immature Gran % (Auto) 0.4 (0.0-0.4) % Neut % (Auto) 64.3 (45-73) % Lymph % (Auto) 24.1 (20-40) % [place] % (Auto) 9.8 (2-11) % Eos % (Auto) 1.1 (0-4) % Baso % (Auto) 0.3 (0-2) % Lymph # (Auto) 2.5 (1.2-4.9) X10*3/uL [place] # (Auto) 1.0 (0.1-1.2) X10*3/uL Eos # (Auto) 0.1 (0.0-0.4) X10*3/uL Baso # (Auto) 0.0 (0.0-0.2) X10*3/uL Abs Immat Gran (auto) 0.04 H (0.00-0.03) X10*3/uL Absolute Neuts (auto) 6.7 (2.0-8.3) x10*3/uL Absolute Nucleated RBC 0.000 (0.0-0.012) X10*3/uL Nucleated RBC % (auto) 0.0 (0.0-0.2) /100WBC Sodium 136 (135-145) mmol/L Potassium 3.9 (3.3-5.1) mmol/L Chloride 100 (96-108) mmol/L Carbon Dioxide 29 (22-29) mmol/L Anion Gap 11 L (12-20) BUN 16 (9-16) mg/dL Creatinine 0.83 (0.5-1.4) mg/dL Estim Creat Clear Calc 71.0 Estimated GFR > 60 Random Glucose 95 (60-115) mg/dL Lactic Acid (0.5-2.0) mmol/L Calcium 9.7 (8.4-10.2) mg/dL Total Bilirubin 0.4 (0.0-1.0) mg/dL AST 17 (5-31) U/L ALT 19 (0-31) U/L Alkaline Phosphatase 161 H (39-117) U/L Total Protein 7.2 (6.5-8.0) g/dL Albumin 4.0 (3.5-5.0) g/dL Carcinoembryonic Ag ng/mL Urine Color Dark Yellow Urine Appearance Clear Urine pH 5.5 (5.0-9.0) Ur Specific [place] 1.025 (1.005-1.025) Urine Protein Negative (Neg-Trace) mg/dL Urine Glucose (UA) Negative (Negative) mg/dL Urine Ketones Trace (Negative) mg/dL Urine Blood Negative (Negative) Urine Nitrite Negative (Negative) Ur Leukocyte Esterase Small (1+) H (Negative) Urine RBC 3-5 H (0-2) /HPF Urine WBC 6-10 H (0-5) /HPF Ur Squamous Epith Cells 3-5 (0-2) /HPF Urine Bacteria Trace (None Seen) Hyaline Casts 0-2 (0-2) /LPF 05/15/22 05/15/22 Range/Units 19:35 21:41 WBC (4.8-10.8) X10*3/uL RBC (4.20-5.50) X10*6/uL Hgb (12.0-16.0) g/dl Hct (37.0-47.0) % MCV (80.0-98.0) fL MCH (27.0-33.0) pg MCHC (31.0-35.0) g/dl RDW (11.0-16.0) % Plt Count (160-400) X10*3/uL MPV (9.4-12.3) fL Immature Gran % (Auto) (0.0-0.4) % Neut % (Auto) (45-73) % Lymph % (Auto) (20-40) % [place] % (Auto) (2-11) % Eos % (Auto) (0-4) % Baso % (Auto) (0-2) % Lymph # (Auto) (1.2-4.9) X10*3/uL [place] # (Auto) (0.1-1.2) X10*3/uL Eos # (Auto) (0.0-0.4) X10*3/uL Baso # (Auto) (0.0-0.2) X10*3/uL Abs Immat Gran (auto) (0.00-0.03) X10*3/uL Absolute Neuts (auto) (2.0-8.3) x10*3/uL Absolute Nucleated RBC (0.0-0.012) X10*3/uL Nucleated RBC % (auto) (0.0-0.2) /100WBC Sodium (135-145) mmol/L Potassium (3.3-5.1) mmol/L Chloride (96-108) mmol/L Carbon Dioxide (22-29) mmol/L Anion Gap (12-20) BUN (9-16) mg/dL Creatinine (0.5-1.4) mg/dL Estim Creat Clear Calc Estimated GFR Random Glucose (60-115) mg/dL Lactic Acid 0.7 (0.5-2.0) mmol/L Calcium (8.4-10.2) mg/dL Total Bilirubin (0.0-1.0) mg/dL AST (5-31) U/L ALT (0-31) U/L Alkaline Phosphatase (39-117) U/L Total Protein (6.5-8.0) g/dL Albumin (3.5-5.0) g/dL Carcinoembryonic Ag < 1.73 ng/mL Urine Color Urine Appearance Urine pH (5.0-9.0) Ur Specific [place] (1.005-1.025) Urine Protein (Neg-Trace) mg/dL Urine Glucose (UA) (Negative) mg/dL Urine Ketones (Negative) mg/dL Urine Blood (Negative) Urine Nitrite (Negative) Ur Leukocyte Esterase (Negative) Urine RBC (0-2) /HPF Urine WBC (0-5) /HPF Ur Squamous Epith Cells (0-2) /HPF Urine Bacteria (None Seen) Hyaline Casts (0-2) /LPF Discharge Plan Discharge Clinical Impression: Acute hip pain, Colon cancer, Urinary tract infection Patient Disposition: Admitted As Inpatient Interventions: Admission Worksheet (ED) Last Done: 05/16/22 01:34 Discharge Date/Time: 05/16/22 01:34
[2022-05-15 19:42] LABS: MANUAL DIFF FLAG NO
[2022-05-15 19:47] LABS: Appearance Urine Clear; Basophils Percent Auto 0.3 % (0-2); Color Urine Dark Yellow; Eosinophils Absolute Auto 0.1 X10*3/uL (0.0-0.4); Eosinophils Percent Auto 1.1 % (0-4); Glucose Urine UA Negative (Negative); Hematocrit 40.7 % (37.0-47.0); Hemoglobin 13.7 g/dl (12.0-16.0); Imm Gran Abs Auto 0.04 X10*3/uL (0.00-0.03); Imm Gran Pct Auto 0.4 % (0.0-0.4); Leukocyte Esterase Urine Small (1+) (Negative); Lymphocytes Absolute Auto 2.5 X10*3/uL (1.2-4.9); Lymphocytes Percent Auto 24.1 % (20-40); Mean Corpuscular HGB Conc 33.7 g/dl (31.0-35.0); Mean Corpuscular Hemoglobin 29.3 pg (27.0-33.0); Mean Corpuscular Volume 87.2 fL (80.0-98.0); Mean Platelet Volume 9.6 fL (9.4-12.3); Monocytes Percent Auto 9.8 % (2-11); Neutrophils Absolute Auto 6.7 x10*3/uL (2.0-8.3); Neutrophils Percent Auto 64.3 % (45-73); Nitrite Urine Negative (Negative); PH 5.5 (5.0-9.0); Platelet Count 211 X10*3/uL (160-400); Red Blood Count 4.67 X10*6/uL (4.20-5.50); Red Cell Distribution Width 13.9 % (11.0-16.0); Specific Gravity - Urine 1.025 (1.005-1.025); UMIC TRIGGER UACC YES; Urine Blood Negative (Negative); Urine Ketones Trace mg/dL (Negative); Urine Protein Negative (Neg-Trace); White Blood Count 10.5 X10*3/uL (4.8-10.8)
[2022-05-15 19:59] LABS: Alanine Aminotransferase 19 U/L (0-31); Alkaline Phosphatase 161 U/L (39-117); Anion Gap 11 (12-20); Aspartate Amino Transferase 17 U/L (5-31); Bilirubin Total 0.4 mg/dL (0.0-1.0); Blood Urea Nitrogen 16 mg/dL (9-16); Calcium 9.7 mg/dL (8.4-10.2); Carbon Dioxide 29 mmol/L (22-29); Chloride 100 mmol/L (96-108); Estimated Glomerular Filt Rate > 60; Glucose Random 95 mg/dL (60-115); Potassium 3.9 mmol/L (3.3-5.1); Sodium 136 mmol/L (135-145); Total Protein 7.2 g/dL (6.5-8.0)
[2022-05-15 20:23] LABS: Bacteria Urine Trace (None Seen); Hyaline Casts Urine 0-2 /LPF (0-2); UACC Culture Trigger YES
--- NOTE | 2022-05-15 20:37 | ED.GENADULT ---
HPI - General Adult General Chief complaint: Extremity Injury, Lower Stated complaint: pelvic pain Time Seen by Provider: 05/15/22 20:24 Source: patient Mode of arrival: ambulatory Limitations: no limitations History of Present Illness HPI narrative: 61-year-old female presents for evaluation of right hip pain, difficulty ambulating because of the hip pain. She does not report any mechanical injury falls or trauma. She does report she is, chills, chest pain or pressure, palpitations, shortness of breath, or any other concerning symptoms at this time. Onset (ago): day(s) (4) Location: back and pelvis Radiation: non-radiation Severity: moderate Severity scale (1-10): 6 Quality: aching Pain Consistency: constant Relieving factors: none Exacerbating factors: movement Associated symptoms: denies other symptoms Treatments prior to arrival: none Related Data Home Medications Medication Instructions Recorded Confirmed venlafaxine 150 mg 150 mg PO DAILY 06/01/20 05/15/22 capsule,extended release 24 hr (Effexor XR) naproxen sodium 220 mg tablet 220 mg PO Q12H PRN Pain 10/11/21 05/15/22 (Aleve) trazodone 50 mg tablet 50 mg PO BEDTIME 10/11/21 05/15/22 lorazepam 1 mg tablet 0.5 mg PO DAILY PRN Anxiety 04/10/22 05/15/22 calcium carbonate 600 mg calcium 600 mg PO DAILY 05/15/22 05/15/22 (1,500 mg) tablet cholecalciferol (vitamin D3) 25 25 mcg PO DAILY 05/15/22 05/15/22 mcg (1,000 unit) tablet gabapentin 300 mg capsule 300 mg PO TID 05/15/22 05/15/22 vitamin B complex 1 tab PO DAILY 05/15/22 05/15/22 Allergies Allergy/AdvReac Type Severity Reaction Status Date / Time No Known Allergies Allergy Verified 04/10/22 14:53 Review of Systems Review of Systems: Constitutional: No Fever, No Chills ENT/Mouth: No Ear Pain, No Hoarseness, No sore throat Eyes: No Eye Pain, No Swelling, No Redness, No Foreign Body Cardiovascular: No Chest Pain, No SOB Respiratory: No Cough, No Dyspnea Gastrointestinal: No Nausea, No Vomiting, No Diarrhea, No abdominal Pain Genitourinary: No Dysuria, No Hematuria Musculoskeletal: positive right hip pain, No Myalgias, No Joint Swelling Skin: No Skin lacerations, No rash Neuro: No Weakness, No Numbness, No Paresthesias, No Loss of Consciousness, No Dizziness, No Headache Psych: No Anxiety/Panic, No Depression Heme/Lymph: no easy bruising, no Lymphadenopathy Endocrine: No Polyuria, No Polydipsia Yes all other systems are reviewed and are negative [facility] Past Medical History Attestation statement: The following information was validated with the patient. Source: old records reviewed Medical History Anxiety Chronic back pain Depression Fibromyalgia Homeless Surgical History Hx of appendectomy Hx of cholecystectomy Family History Family History Mother Kidney cancer Father Medical history unknown Other Mental health disorder Social History Social History Household Members: Children Household Members Other:: 1 Housing: Apartment Do you presently have visiting nurse or other home services: No Alcohol intake: never Patient Tobacco Use Status: Former Tobacco user Tobacco use type: Cigarette Smoked in Last 30 Days: No e-Cigarette/Vaping Use: Never Used Patient Interested in Nicotine Replacement: No Patient Given Instructions on How to Stop Smoking: No Second Hand Smoke Exposure: No Use of substances other than those prescribed or required for medical reasons: No Currently Displaying Signs/Symptoms of Drug Intoxication Withdrawal: No Any prior treatment program specific to substance use: No Have you been hit, kicked, punched, or otherwise hurt by someone within the past year? If so, by whom?: No Do you feel safe in your current relationship?: No Current Relationship Is there a partner from a previous relationship who is making you feel unsafe now?: No Are you made to feel afraid or neglected: No Advance Directives: No Advance Directives Information Provided: No Do you have thoughts of harming others: None Do you have a plan to hurt others: No Plan Recently lost weight without trying: No Eating poorly because of decreased appetite: No Nutrition Risks: No Nutritional Risk Patient : No : No Poor oral hygiene: No Current occupational status: disabled Physical Exam ED Vital Signs: Vital Signs - 24 hr 05/15/22 18:17 05/15/22 21:09 Temperature 98.2 F 98.5 F Pulse Rate 94 81 Respiratory Rate 18 16 Blood Pressure 151/81 H 137/81 Pulse Oximetry 97 95 Oxygen Delivery Method Room Air Room Air BMI result Body Mass Index 31.8 Appearance: Alert. Oriented X3. Mild distress. Eyes: Pupils equal, round and reactive to light. ENT: Pharynx normal. Neck: Normal inspection. Neck supple. CVS: Normal heart rate and rhythm. Pulses normal. Respiratory: No respiratory distress. Breath sounds normal. Abdomen: Soft and diffusely tender. No rebound or rigidity. Skin: Skin warm and dry. Normal skin color. Normal skin turgor. Extremities: No lower extremity edema. Moves all extremities against resistance. Gait not assessed for safety. Neuro: No motor deficit. No sensory deficit. Cranial nerves 2-12 intact. Course Course Course Narrative: 61-year-old female presents for evaluation for right hip pain and difficulty ambulating. Patient's labs and imaging completed while patient was in the emergency department waiting room. CT scan of abdomen pelvis indicative of colon cancer with finding suspicious for colonic neoplasm of the ascending colon and extension into the ileocecal valve, this mass abuts the liver surface, and abnormal lymph nodes are throughout the abdomen. Patient stated that she did have a colonoscopy at 52 years old, with a negative exam. She does not have family history of colon cancer. She has not report any weight loss, abnormal bowel movements, or blood in stools. Emotional support provided by this [employer]. I did offer pain management and anxiolytics which patient accepted. Urinalysis is positive for UTI, will treat with ceftriaxone and fluids. 21:[address] Robles, gastroenterology Dr. Mullins, patient will be added onto their service for the morning, will be prepped for colonoscopy, additional labs requested by gastroenterology. I did discuss this case with Dr. Domínguez, plan is to admit for UTI and oncology workup. Consultations Consultation #1: herbert Time: 21:20 Consultation #2: Harpreet Time: 21:20 Consultation #3: Sang Time: 21:20 Medications Administered Generic Name Dose Route Start Last Admin Trade Name Freq PRN Reason Stop Dose Admin Heparin Sodium (Porcine) 5,000 unit 05/15/22 23:00 05/15/22 23:39 Heparin Sodium,Porcine 5,000 Unit/Ml Vial SUBCUT 5,000 unit Q12H MINDY Administration Sodium Chloride 3 ml 05/16/22 00:00 05/16/22 00:11 0.9 % Sodium Chloride Flush 3 Ml Syringe IVFLUSH Not Given QSHIFT MINDY Discontinued Medications Generic Name Dose Route Start Last Admin Trade Name Terry PRN Reason Stop Dose Admin Sodium Chloride 1,000 mls @ 999 mls/hr 05/15/22 21:00 05/16/22 01:17 Ns IVCONT 05/15/22 22:00 Infused .Q1H1M MINDY Infusion Ceftriaxone Sodium 1 gm/ 50 mls @ 100 mls/hr 05/15/22 20:59 05/16/22 00:00 Sodium Chloride IV 05/15/22 21:28 Infused ONCE ONE Infusion Lorazepam 1 mg 05/15/22 21:23 05/15/22 22:07 Lorazepam 1 Mg Tablet PO 05/15/22 21:24 1 mg ONCE ONE Administration Morphine Sulfate 4 mg 05/15/22 21:23 05/15/22 22:06 Morphine Sulfate 4 Mg/Ml Cartridge IVPUSH 05/15/22 21:24 4 mg ONCE ONE Administration Protocol Ondansetron HCl 4 mg 05/15/22 21:23 05/15/22 22:06 Ondansetron Hcl 4 Mg/2 Ml Vial IVPUSH 05/15/22 21:24 4 mg ONCE ONE Administration Polyethylene Glycol/Electrolytes 4,000 ml 05/15/22 21:45 05/15/22 23:39 Peg 3350/Na Sulf,Bicarb,Cl/Kcl 4,000 Ml Soln.Recon PO 05/15/22 21:46 4,000 ml ONCE ONE Administration Medical Decision Making Differential Diagnosis Differential Diagnosis: Fracture, dislocation, arthritis, kidney stone Medical Records Medical records reviewed: Yes I reviewed the patient's medical records. Lab Data Lab results reviewed: Yes I reviewed the patient's lab results. Result diagrams: 05/15/22 19:35 05/15/22 19:35 Labs: Lab Results 05/15/22 05/15/22 05/15/22 Range/Units 19:35 19:35 19:35 WBC 10.5 (4.8-10.8) X10*3/uL RBC 4.67 (4.20-5.50) X10*6/uL Hgb 13.7 (12.0-16.0) g/dl Hct 40.7 (37.0-47.0) % MCV 87.2 (80.0-98.0) fL MCH 29.3 (27.0-33.0) pg MCHC 33.7 (31.0-35.0) g/dl RDW 13.9 (11.0-16.0) % Plt Count 211 (160-400) X10*3/uL MPV 9.6 (9.4-12.3) fL Immature Gran % (Auto) 0.4 (0.0-0.4) % Neut % (Auto) 64.3 (45-73) % Lymph % (Auto) 24.1 (20-40) % [place] % (Auto) 9.8 (2-11) % Eos % (Auto) 1.1 (0-4) % Baso % (Auto) 0.3 (0-2) % Lymph # (Auto) 2.5 (1.2-4.9) X10*3/uL [place] # (Auto) 1.0 (0.1-1.2) X10*3/uL Eos # (Auto) 0.1 (0.0-0.4) X10*3/uL Baso # (Auto) 0.0 (0.0-0.2) X10*3/uL Abs Immat Gran (auto) 0.04 H (0.00-0.03) X10*3/uL Absolute Neuts (auto) 6.7 (2.0-8.3) x10*3/uL Absolute Nucleated RBC 0.000 (0.0-0.012) X10*3/uL Nucleated RBC % (auto) 0.0 (0.0-0.2) /100WBC Sodium 136 (135-145) mmol/L Potassium 3.9 (3.3-5.1) mmol/L Chloride 100 (96-108) mmol/L Carbon Dioxide 29 (22-29) mmol/L Anion Gap 11 L (12-20) BUN 16 (9-16) mg/dL Creatinine 0.83 (0.5-1.4) mg/dL Estim Creat Clear Calc 71.0 Estimated GFR > 60 Random Glucose 95 (60-115) mg/dL Lactic Acid (0.5-2.0) mmol/L Calcium 9.7 (8.4-10.2) mg/dL Total Bilirubin 0.4 (0.0-1.0) mg/dL AST 17 (5-31) U/L ALT 19 (0-31) U/L Alkaline Phosphatase 161 H (39-117) U/L Total Protein 7.2 (6.5-8.0) g/dL Albumin 4.0 (3.5-5.0) g/dL Carcinoembryonic Ag ng/mL Urine Color Dark Yellow Urine Appearance Clear Urine pH 5.5 (5.0-9.0) Ur Specific [place] 1.025 (1.005-1.025) Urine Protein Negative (Neg-Trace) mg/dL Urine Glucose (UA) Negative (Negative) mg/dL Urine Ketones Trace (Negative) mg/dL Urine Blood Negative (Negative) Urine Nitrite Negative (Negative) Ur Leukocyte Esterase Small (1+) H (Negative) Urine RBC 3-5 H (0-2) /HPF Urine WBC 6-10 H (0-5) /HPF Ur Squamous Epith Cells 3-5 (0-2) /HPF Urine Bacteria Trace (None Seen) Hyaline Casts 0-2 (0-2) /LPF 05/15/22 05/15/22 Range/Units 19:35 21:41 WBC (4.8-10.8) X10*3/uL RBC (4.20-5.50) X10*6/uL Hgb (12.0-16.0) g/dl Hct (37.0-47.0) % MCV (80.0-98.0) fL MCH (27.0-33.0) pg MCHC (31.0-35.0) g/dl RDW (11.0-16.0) % Plt Count (160-400) X10*3/uL MPV (9.4-12.3) fL Immature Gran % (Auto) (0.0-0.4) % Neut % (Auto) (45-73) % Lymph % (Auto) (20-40) % [place] % (Auto) (2-11) % Eos % (Auto) (0-4) % Baso % (Auto) (0-2) % Lymph # (Auto) (1.2-4.9) X10*3/uL [place] # (Auto) (0.1-1.2) X10*3/uL Eos # (Auto) (0.0-0.4) X10*3/uL Baso # (Auto) (0.0-0.2) X10*3/uL Abs Immat Gran (auto) (0.00-0.03) X10*3/uL Absolute Neuts (auto) (2.0-8.3) x10*3/uL Absolute Nucleated RBC (0.0-0.012) X10*3/uL Nucleated RBC % (auto) (0.0-0.2) /100WBC Sodium (135-145) mmol/L Potassium (3.3-5.1) mmol/L Chloride (96-108) mmol/L Carbon Dioxide (22-29) mmol/L Anion Gap (12-20) BUN (9-16) mg/dL Creatinine (0.5-1.4) mg/dL Estim Creat Clear Calc Estimated GFR Random Glucose (60-115) mg/dL Lactic Acid 0.7 (0.5-2.0) mmol/L Calcium (8.4-10.2) mg/dL Total Bilirubin (0.0-1.0) mg/dL AST (5-31) U/L ALT (0-31) U/L Alkaline Phosphatase (39-117) U/L Total Protein (6.5-8.0) g/dL Albumin (3.5-5.0) g/dL Carcinoembryonic Ag < 1.73 ng/mL Urine Color Urine Appearance Urine pH (5.0-9.0) Ur Specific [place] (1.005-1.025) Urine Protein (Neg-Trace) mg/dL Urine Glucose (UA) (Negative) mg/dL Urine Ketones (Negative) mg/dL Urine Blood (Negative) Urine Nitrite (Negative) Ur Leukocyte Esterase (Negative) Urine RBC (0-2) /HPF Urine WBC (0-5) /HPF Ur Squamous Epith Cells (0-2) /HPF Urine Bacteria (None Seen) Hyaline Casts (0-2) /LPF Imaging Data CT scan - abdomen: Attestation: I personally reviewed and interpreted this imaging study as follows: Radiologist's impression: FINDINGS: LUNG BASES: No focal consolidation or pleural effusion.? LIVER, GALLBLADDER, AND BILIARY TREE: Decreased attenuation of the liver parenchyma suggesting the presence of hepatic steatosis. No discrete focal liver lesion noted in this limited noncontrast examination. Cholecystectomy. No biliary ductal dilatation. PANCREAS: Limited noncontrast examination, unremarkable.? SPLEEN: Limited noncontrast examination, unremarkable.? ADRENAL GLANDS: No adrenal mass.? KIDNEYS AND URETERS: Limited noncontrast examination. No nephrolithiasis or hydronephrosis.? BLADDER: Decompressed and suboptimally assessed.? GASTROINTESTINAL TRACT: There is abnormal wall thickening of the ascending colon extending from the cecum to the level of the hepatic flexure; the ileocecal valve appears as well involved. There are several abnormal appearing rounded pericolonic lymph nodes, for instance measuring 9 mm on image 48, series 3. There is associated regional mesenteric vasculature engorgement. The stomach and the small bowel are nondilated. ABDOMINAL WALL: Small fat-containing umbilical hernia.? LYMPH NODES: Abnormal appearance of pericolonic soft tissue nodules/lymph nodes surrounding the ascending colon. There are enlarged periportal lymph nodes which are nonspecific in the setting of hepatic steatosis. VASCULAR: Limited noncontrast examination. Abdominal aorta is of normal caliber. PELVIC VISCERA: Unremarkable.? OSSEOUS STRUCTURES: Prominent Schmorl's nodule along the superior endplate of L3. Multilevel degenerative changes of the spine. No destructive appearing osseous lesions.? CT/CT abdomen pelvis wo IV con IMPRESSION: Findings are highly suspicious for a colonic neoplasm of the ascending colon with possible extension into the ileocecal valve. The mass abuts the liver surface, however evaluation of metastatic disease is limited in this noncontrast examination. Recommend consultation with GI oncologist. ? There are abnormal lymph nodes and engorgement of the pericolonic vasculature at the site of the mass, concerning for transmural extension. As above, this examination is not targeted for staging. ? There are enlarged nonspecific periportal lymph nodes. ? Hepatic steatosis. ? This critical result was discussed with Gomez RAMOS at 05/15/2022 7:47 PM and it was ascertained that the content and urgency of the report was understood at the time of direct communication. ECG Data Attestation: I personally reviewed and interpreted this ECG as follows: Prior ECG tracings: available for review Interpretation: Vent. rate 76 BPM NE interval 164 ms QRS duration 86 ms QT/QTc 170/191 ms P-R-T axes -21 -8 0 Normal sinus rhythm Minimal voltage criteria for LVH, may be normal variant ( R in aVL ) Nonspecific T wave abnormality Abnormal ECG When compared with ECG of 21-SEP-2020 15:30, Nonspecific T wave abnormality has replaced inverted T waves in Lateral leads QT has shortened 15-MAY-2022 21:26:21 Discharge Plan Discharge Clinical Impression: Acute hip pain, Colon cancer, Urinary tract infection Patient Disposition: Admitted As Inpatient Interventions: Admission Worksheet (ED) Last Done: 05/16/22 01:34 Discharge Date/Time: 05/16/22 01:34
--- NOTE | 2022-05-15 21:00 | ECG_ITS ---
Test Reason : general medical Blood Pressure : / mmHG Vent. Rate : 076 BPM Atrial Rate : 076 BPM P-R Int : 164 ms QRS Dur : 086 ms QT Int : 170 ms P-R-T Axes : -21 -08 000 degrees QTc Int : 191 ms Normal sinus rhythm Minimal voltage criteria for LVH, may be normal variant ( R in aVL ) Nonspecific T wave abnormality Abnormal ECG When compared with ECG of 21-SEP-2020 15:30, Nonspecific T wave abnormality has replaced inverted T waves in Lateral leads QT has shortened Referred By: Jordyn Reina Electronically Signed By:Alexis Vilchis
[2022-05-15 21:09] VITALS: BP 137/81; PULSE 81; RESP 16; TEMP 36.9; O2SAT 95
[2022-05-15 21:59] LABS: Lactic Acid 0.7 mmol/L (0.5-2.0)
[2022-05-15] MEDS: 0.9 % Sodium Chloride 1,000 ML 999 ML IVCONT (22:06)
[2022-05-15] MEDS: ondansetron HCL 4 MG/2 ML VIAL IVPUSH (22:06)
[2022-05-15] MEDS: Morphine Sulfate 4 MG/ML CARTRIDGE IVPUSH (22:06)
[2022-05-15] MEDS: cefTRIAXone sodium 1 GM in 0.9 % Sodium Chloride 50 ML IV (22:07)
[2022-05-15] MEDS: LORazepam 1 MG TABLET PO (22:07)
--- NOTE | 2022-05-15 22:26 | PHA.MEDREC ---
Pharmacy Consult ? Medication Reconciliation Pharmacy has completed the medication reconciliation. Patient reported all medications. Nandini Contreras, JulioD
[2022-05-15 22:28] LABS: Carcinoembryonic Antigen < 1.73 ng/mL
--- NOTE | 2022-05-15 22:41 | P.HPHOSP_ITS ---
History of Present Illness Date of Service: 05/15/22 Chief Complaint: Hip pain 61-year-old female with past medical history of anxiety depression, fibromyalgia, chronic back pain, presents to the hospital with complaints of right hip pain, denies any fall, no trauma, patient is also complaining of pain in the pelvic area, mostly in the suprapubic region. Pain has now become 10/10, making it difficult for her to ambulate. Pain is worse with walking. She is also complaining of sharp epigastric pain, nonradiating. Intermittent, no alleviating or exacerbating factors. Patient reports 3 lb weight loss in the past 1 month unintentional. She reports constipation, denies any chest pain, no shortness of breath, reports urinary frequency. No lower extremity edema. No headache or change in vision. On arrival to the ED patient hemodynamically stable no significant abnormal vitals Labs are significant for WBC count of 10.5, labs otherwise unremarkable UA is positive for leukocyte Estrace and WBC Abdomen pelvic CT shows finding suspicious for colonic neoplasm of the ascending colon with possible extension into the ascitic tap, MS reynolds bets the liver service however evaluation of metastatic disease is limited due to noncontrast exam. Abnormal lymph nodes and engorgement of the pericolonic vasculature at the site of the mass, enlarged nonspecific periportal lymph nodes. This case was discussed with GI as well as Hematology-Oncology and patient will be admitted for further management Review of Systems Review of Systems: Yes all other systems are reviewed and are negative [facility] Medical History Anxiety Chronic back pain Depression Fibromyalgia Homeless Family History Mother Kidney cancer Father Medical history unknown Other Mental health disorder Surgical History Hx of appendectomy Hx of cholecystectomy Social History Household Members: Children Household Members Other:: 1 Housing: Apartment Do you presently have visiting nurse or other home services: No Alcohol intake: never Patient Tobacco Use Status: Former Tobacco user Tobacco use type: Cigarette Smoked in Last 30 Days: No e-Cigarette/Vaping Use: Never Used Patient Interested in Nicotine Replacement: No Patient Given Instructions on How to Stop Smoking: No Second Hand Smoke Exposure: No Use of substances other than those prescribed or required for medical reasons: No Currently Displaying Signs/Symptoms of Drug Intoxication Withdrawal: No Any prior treatment program specific to substance use: No Have you been hit, kicked, punched, or otherwise hurt by someone within the past year? If so, by whom?: No Do you feel safe in your current relationship?: No Current Relationship Is there a partner from a previous relationship who is making you feel unsafe now?: No Are you made to feel afraid or neglected: No Advance Directives: No Advance Directives Information Provided: No Do you have thoughts of harming others: None Do you have a plan to hurt others: No Plan Recently lost weight without trying: No Eating poorly because of decreased appetite: No Nutrition Risks: No Nutritional Risk Patient : No : No Poor oral hygiene: No Current occupational status: [employer] Allergies Allergy/AdvReac Type Severity Reaction Status Date / Time No Known Allergies Allergy Verified 04/10/22 14:53 Home Medications Medication Instructions Recorded Confirmed Last Taken Type venlafaxine 150 mg 150 mg PO DAILY 06/01/20 05/15/22 05/15/22 History capsule,extended release 24 hr (Effexor XR) naproxen sodium 220 mg tablet 220 mg PO Q12H PRN Pain 10/11/21 05/15/22 Unknown History (Aleve) trazodone 50 mg tablet 50 mg PO BEDTIME 10/11/21 05/15/22 05/15/22 History lorazepam 1 mg tablet 0.5 mg PO DAILY PRN Anxiety 04/10/22 05/15/22 Unknown History calcium carbonate 600 mg calcium 600 mg PO DAILY 05/15/22 05/15/22 05/15/22 Hist ory (1,500 mg) tablet cholecalciferol (vitamin D3) 25 25 mcg PO DAILY 05/15/22 05/15/22 05/15/22 History mcg (1,000 unit) tablet gabapentin 300 mg capsule 300 mg PO TID 05/15/22 05/15/22 05/15/22 History vitamin B complex 1 tab PO DAILY 05/15/22 05/15/22 05/15/22 History Physical Exam Vital Signs and Narrative: Vital Signs: Last Vital Signs Temp 98.5 F 05/15/22 21:09 Pulse 81 05/15/22 21:09 Resp 16 12/01/22 21:09 BP 137/81 05/15/22 21:09 Pulse Ox 95 05/15/22 21:09 O2 Del Method 05/15/22 21:09 BMI result Body Mass Index 31.8 Const: General: cooperative and no acute distress Orientation/consciousness: patient oriented x3 Eyes: General: appearance normal, both eyes and all related structures Pupils: Equal, round and reactive pupils present Resp: Effort & Inspection: normal respiratory effort Auscultation: clear to auscultation bilaterally Cardio: Rate: regular rate Rhythm: regular rhythm GI: Other: Lower abdominal tenderness no rebound or guarding Epigastric tenderness with no rebound or guarding Palpation (GI): Soft to palpation Auscultation: normal bowel sounds Skin: General skin exam: no rashes or lesions noted Neuro: General: patient oriented x3 Cranial nerves: Yes Equal, round and reactive pupils present Cognition (Neuro): normal cognition Extrem: General: Yes normal to inspection and Yes no pedal edema Results Labs CBC and Chem 7: 05/16/22 05:22 05/16/22 05:22 Labs: Laboratory Results - last 24 hr 05/15/22 05/15/22 05/15/22 19:35 19:35 19:35 MCV 87.2 MCH 29.3 MCHC 33.7 RDW 13.9 Plt Count 211 MPV 9.6 Immature Gran % (Auto) 0.4 Neut % (Auto) 64.3 Lymph % (Auto) 24.1 [place] % (Auto) 9.8 Eos % (Auto) 1.1 Baso % (Auto) 0.3 Lymph # (Auto) 2.5 [place] # (Auto) 1.0 Eos # (Auto) 0.1 Baso # (Auto) 0.0 Abs Immat Gran (auto) 0.04 H Absolute Neuts (auto) 6.7 Absolute Nucleated RBC 0.000 Nucleated RBC % (auto) 0.0 Anion Gap 11 L Estim Creat Clear Calc 71.0 Estimated GFR > 60 Random Glucose 95 Lactic Acid Calcium 9.7 Total Bilirubin 0.4 AST 17 ALT 19 Alkaline Phosphatase 161 H Total Protein 7.2 Albumin 4.0 Carcinoembryonic Ag Urine Color Dark Yellow Urine Appearance Clear Urine pH 5.5 Ur Specific [place] 1.025 Urine Protein Negative Urine Glucose (UA) Negative Urine Ketones Trace Urine Blood Negative Urine Nitrite Negative Ur Leukocyte Esterase Small (1+) H Urine RBC 3-5 H Urine WBC 6-10 H Ur Squamous Epith Cells 3-5 Urine Bacteria Trace Hyaline Casts 0-2 05/15/22 05/15/22 19:35 21:41 MCV MCH MCHC RDW Plt Count MPV Immature Gran % (Auto) Neut % (Auto) Lymph % (Auto) [place] % (Auto) Eos % (Auto) Baso % (Auto) Lymph # (Auto) [place] # (Auto) Eos # (Auto) Baso # (Auto) Abs Immat Gran (auto) Absolute Neuts (auto) Absolute Nucleated RBC Nucleated RBC % (auto) Anion Gap Estim Creat Clear Calc Estimated GFR Random Glucose Lactic Acid 0.7 Calcium Total Bilirubin AST ALT Alkaline Phosphatase Total Protein Albumin Carcinoembryonic Ag < 1.73 Urine Color Urine Appearance Urine pH Ur Specific [place] Urine Protein Urine Glucose (UA) Urine Ketones Urine Blood Urine Nitrite Ur Leukocyte Esterase Urine RBC Urine WBC Ur Squamous Epith Cells Urine Bacteria Hyaline Casts Imaging Radiologist's Impressions: Impressions Abdomen/Pelvis CT 05/15/22 19:15 IMPRESSION: Findings are highly suspicious for a colonic neoplasm of the ascending colon with possible extension into the ileocecal valve. The mass abuts the liver surface, however evaluation of metastatic disease is limited in this noncontrast examination. Recommend consultation with GI oncologist. There are abnormal lymph nodes and engorgement of the pericolonic vasculature at the site of the mass, concerning for transmural extension. As above, this examination is not targeted for staging. There are enlarged nonspecific periportal lymph nodes. Hepatic steatosis. This critical result was discussed with Gomez RAMOS at 05/15/2022 7:47 PM and it was ascertained that the content and urgency of the report was understood at the time of direct communication. Assessment and Plan (1) Colon cancer: Status: Acute (2) Urinary tract infection: Status: Acute (3) Acute hip pain: Status: Acute Plan 61-year-old female who presents to the hospital with complaints of pelvic abdominal pain as well as hip pain making it difficult to ambulate found to have likely colon cancer # colon cancer - has evidence of colon cancer and imaging of CT which is likely the cause of her pelvic pain - possible metastatic to bone? Given the hip pain - Hematology-Oncology consult, GI consulted - will keep NPO # UTI - urinary frequency - will treat with IV antibiotics - follow cultures # hip pain - no recent trauma or fall - metastatic bone disease cannot be ruled out at this time - may require PET scan, but further management per Hematology/oncology - pain control # depression anxiety - will continue home medications DVT prophylaxis: Heparin subQ Given patient's need for further evaluation by Hematology-Oncology and GI patient require minimum 2 night inpatient hospital stay for further management Quality Stroke Does the patient have a stroke diagnosis?: No VTE Prior VTE?: No VTE Risk Level:: Medical - moderate - high VTE Device Contraindication: Treatment Not Indicated VTE Drug Contraindication: N/A - Med Ordered
[2022-05-15 23:37] VITALS: BP 126/70; PULSE 87; RESP 18; O2SAT 99
[2022-05-15] MEDS: Heparin Sodium,Porcine 5,000 UNIT/ML VIAL 5000 UNIT SUBCUT (23:39)
[2022-05-15] MEDS: PEG 3350/Na Sulf,Bicarb,Cl/KCL 4,000 ML SOLN.RECON 4000 ML PO (23:39)
[2022-05-16] VITALS (8 sets, daily range): BP systolic 107–136; BP diastolic 60–85; PULSE 78–88; RESP 14–18; TEMP 36.3–37.8; O2SAT 96–99; BMI 33.0
[2022-05-16 00:14] LABS: COVID-19 Test Negative (Negative); IDNOW Serial# BCCEAD1C
--- NOTE | 2022-05-16 01:18 | PC.NURSE ---
report given to med/physician surgeon
[2022-05-16 05:36] LABS: MANUAL DIFF FLAG NO
[2022-05-16 05:39] LABS: Basophils Percent Auto 0.3 % (0-2); Eosinophils Absolute Auto 0.2 X10*3/uL (0.0-0.4); Eosinophils Percent Auto 1.1 % (0-4); Hemoglobin 13.7 g/dl (12.0-16.0); Imm Gran Abs Auto 0.04 X10*3/uL (0.00-0.03); Imm Gran Pct Auto 0.3 % (0.0-0.4); Lymphocytes Absolute Auto 2.5 X10*3/uL (1.2-4.9); Lymphocytes Percent Auto 19.1 % (20-40); Mean Corpuscular HGB Conc 33.4 g/dl (31.0-35.0); Mean Corpuscular Hemoglobin 29.9 pg (27.0-33.0); Mean Corpuscular Volume 89.5 fL (80.0-98.0); Mean Platelet Volume 9.8 fL (9.4-12.3); Monocytes Absolute Auto 1.3 X10*3/uL (0.1-1.2); Monocytes Percent Auto 9.5 % (2-11); Neutrophils Absolute Auto 9.3 x10*3/uL (2.0-8.3); Neutrophils Percent Auto 69.7 % (45-73); Platelet Count 210 X10*3/uL (160-400); Red Blood Count 4.58 X10*6/uL (4.20-5.50); Red Cell Distribution Width 13.8 % (11.0-16.0); White Blood Count 13.3 X10*3/uL (4.8-10.8)
[2022-05-16 05:51] LABS: Anion Gap 11 (12-20); Blood Urea Nitrogen 16 mg/dL (9-16); Calcium 9.6 mg/dL (8.4-10.2); Carbon Dioxide 29 mmol/L (22-29); Chloride 99 mmol/L (96-108); Creatinine Clr Calc Pharmacy 72.3; Estimated Glomerular Filt Rate > 60; Glucose Random 113 mg/dL (60-115); Potassium 4.1 mmol/L (3.3-5.1); Sodium 135 mmol/L (135-145)
--- NOTE | 2022-05-16 07:08 | PM.GICN ---
History of Present Illness Data of Consult Service Date: 05/16/22 Requesting physician: Ethel Domínguez Primary Care Provider: Dunia Guajardo MD [facility] Reason for consult: Suspected colon cancer 61 YF with history of anxiety depression, fibromyalgia, chronic back pain seen at [facility] on 05/15/22 with complaints of 4 day hx of right hip and suprapubic pelvic pain, denied any fall, no trauma. Pain was 10/10 in intensity and worse with walking.? She also noted intermittent sharp epigastric pain.? Patient reported chronic constipation and unintentional weight loss of 3 lbs over the past 1 month. She denied chest pain, shortness of breath, lower extremity edema, headache or change in vision.? On arrival to the ED patient was hemodynamically stable no significant abnormal vitals Labs were significant for WBC count of 10.5, labs otherwise unremarkable UA positive for leukocyte Estrace and WBC Patient gives a hx of nocturnal heartburn and denies dysphagia, nausea, vomiting, change in appetite. She denies recent change in bowel habits, constipation, diarrhea, black stools or rectal bleeding. Pt admits to post prandial bloating since her GB surgery in 1996. Patient admits to snoring and denies major cardiac or pulmonary problems or sleep apnea Denies problems with anesthesia in the past. Denies being on chronic anticoagulation. Patient denies smoking or EtOH abuse. Pt is on disability, has 2 children and lives with her daughter. Patient denies known family history of colon polyps, colon cancer or other GI malignancies. Her Mom of renal cancer. 05/15/[address] SCAN SHOWED: Findings are highly suspicious for a colonic neoplasm of the ascending colon with possible extension into the ileocecal valve. The mass abuts the liver surface, however evaluation of metastatic disease is limited in this noncontrast examination. Recommend consultation with GI oncologist. ?There are abnormal lymph nodes and engorgement of the pericolonic vasculature at the site of the mass, concerning for transmural extension. As above, this examination is not targeted for staging. ?There are enlarged nonspecific periportal lymph nodes. ?Hepatic steatosis. Patient was admitted and given Golytely prep overnight for a colonoscopy today Of note, pt had a colonoscopy in September, by Dr Mota which was negative and repeat colon was advised in 10 yrs. Review of Systems Constitutional: Constitutional: Denies fever(s), Reports headache(s), Reports snoring and Reports weight loss ENT: Reports headache(s) Cardiovascular: Cardiovascular: Denies chest pain and Denies dyspnea Respiratory: Respiratory: Denies cough, Denies dyspnea and Reports snoring Gastrointestinal: Gastrointestinal: Reports abdominal pain Musculoskeletal: Musculoskeletal: Reports arthralgias and Reports other (fibromyalgia and OA) Neurologic: Reports headache(s) Psychiatric: Psychiatric: Reports anxiety and Reports depression PMF Past Medical History Medical History Anxiety Chronic back pain Depression Fibromyalgia Homeless Family History Family History Mother Kidney cancer Father Medical history unknown Other Mental health disorder Surgical History Surgical History Hx of appendectomy Hx of cholecystectomy Social History Social History Household Members: Children Household Members Other:: 1 Housing: Apartment Do you presently have visiting nurse or other home services: No Alcohol intake: never Patient Tobacco Use Status: Former Tobacco user Tobacco use type: Cigarette Smoked in Last 30 Days: No e-Cigarette/Vaping Use: Never Used Patient Interested in Nicotine Replacement: No Patient Given Instructions on How to Stop Smoking: No Second Hand Smoke Exposure: No Use of substances other than those prescribed or required for medical reasons: No Currently Displaying Signs/Symptoms of Drug Intoxication Withdrawal: No Any prior treatment program specific to substance use: No Have you been hit, kicked, punched, or otherwise hurt by someone within the past year? If so, by whom?: No Do you feel safe in your current relationship?: No Current Relationship Is there a partner from a previous relationship who is making you feel unsafe now?: No Are you made to feel afraid or neglected: No Advance Directives: No Advance Directives Information Provided: No Do you have thoughts of harming others: None Do you have a plan to hurt others: No Plan Recently lost weight without trying: No Eating poorly because of decreased appetite: No Nutrition Risks: No Nutritional Risk Patient : No : No Poor oral hygiene: No Current occupational status: disabled Meds Allergies Allergy/AdvReac Type Severity Reaction Status Date / Time No Known Allergies Allergy Verified 04/10/22 14:53 Active Medications: Current Medications Acetaminophen (Acetaminophen 325 Mg Tablet) 650 mg PO Q6H PRN PRN Reason: Pain, Mild (Pain Scale 1-3) Docusate Sodium (Docusate Sodium 100 Mg Capsule) 100 mg PO DAILY PRN PRN Reason: Constipation Heparin Sodium (Porcine) (Heparin Sodium,Porcine 5,000 Unit/Ml Vial) 5,000 unit SUBCUT Q12H [facility] Last Admin: 05/15/22 23:39 Dose: 5,000 unit Ceftriaxone Sodium 1 gm/ (Sodium Chloride) 50 mls @ 100 mls/hr IV Q24H [facility] Morphine Sulfate (Morphine Sulfate 4 Mg/Ml Cartridge) 4 mg IVPUSH Q4H PRN; Protocol PRN Reason: Pain, Severe (Pain Scale 7-10) Ondansetron HCl (Ondansetron Hcl 4 Mg/2 Ml Vial) 4 mg IVPUSH Q8H PRN PRN Reason: Nausea and Vomiting Sodium Chloride (0.9 % Sodium Chloride Flush 3 Ml Syringe) 3 ml IVFLUSH QSHIFT [facility] Last Admin: 05/16/22 00:11 Dose: Not Given Home Medications Medication Instructions Recorded Confirmed Last Taken Type venlafaxine 150 mg 150 mg PO DAILY 06/01/20 05/15/22 05/15/22 History capsule,extended release 24 hr (Effexor XR) naproxen sodium 220 mg tablet 220 mg PO Q12H PRN Pain 10/11/21 05/15/22 Unknown History (Aleve) trazodone 50 mg tablet 50 mg PO BEDTIME 10/11/21 05/15/22 05/15/22 History lorazepam 1 mg tablet 0.5 mg PO DAILY PRN Anxiety 04/10/22 05/15/22 Unknown History calcium carbonate 600 mg calcium 600 mg PO DAILY 05/15/22 05/15/22 05/15/22 History (1,500 mg) tablet cholecalciferol (vitamin D3) 25 25 mcg PO DAILY 05/15/22 05/15/22 05/15/22 History mcg (1,000 unit) tablet gabapentin 300 mg capsule 300 mg PO TID 05/15/22 05/15/22 05/15/22 History vitamin B complex 1 tab PO DAILY 05/15/22 05/15/22 05/15/22 History Physical Exam Vital Signs: Vital Signs: Last Vital Signs Temp 97.3 F 05/16/22 04:21 Pulse 78 05/16/22 04:21 Resp 18 05/16/22 04:21 BP 121/61 05/16/22 04:21 Pulse Ox 98 05/16/22 04:21 O2 Del Method 05/16/22 04:21 BMI result Body Mass Index 33.0 Const: General: healthy appearing and no acute distress Nutritional Appearance: obese Orientation/consciousness: patient oriented x3 Limitations: no limitations HEENT: Head: Yes normal to inspection Ears: hearing grossly normal bilaterally Eyes: Sclerae: sclerae normal Pupils: Equal, round and reactive pupils present Neck: Neck: Yes normal visual inspection Chest: Chest palpation & inspection: normal inspection of the chest Resp: Effort & Inspection: normal respiratory effort Auscultation: clear to auscultation bilaterally Cardio: Palpation: normal PMI Rate: regular rate Rhythm: regular rhythm Heart sounds: S1 normal heart sound present, S2 normal heart sound present and no murmurs GI: Inspection: Yes obesity Palpation (GI): Soft to palpation, Tenderness to palpation present (GI) (Mild suprapubic tenderness without rebound) and No hepatosplenomegaly present Auscultation: normal bowel sounds Rectal Exam - Female: deferred Skin: General skin exam: no rashes or lesions noted Neuro: General: patient oriented x3, gait normal and moves all extremities Cranial nerves: Yes Equal, round and reactive pupils present Psych: Appearance: grossly normal Mental Status: mental status grossly normal Results Labs CBC & Chem 7: 05/16/22 05:22 05/16/22 05:22 Labs: Short CBC 05/15/22 05/16/22 Range/Units 19:35 05:22 WBC 10.5 13.3 H (4.8-10.8) X10*3/uL Hgb 13.7 13.7 (12.0-16.0) g/dl Hct 40.7 41.0 (37.0-47.0) % Plt Count 211 210 (160-400) X10*3/uL BMP 05/15/22 05/16/22 19:35 05:22 Sodium 136 135 Potassium 3.9 4.1 Chloride 100 99 Carbon Dioxide 29 29 BUN 16 16 Creatinine 0.83 0.83 Calcium 9.7 9.6 Liver Function 05/15/22 Range/Units 19:35 Total Bilirubin 0.4 (0.0-1.0) mg/dL AST 17 (5-31) U/L ALT 19 (0-31) U/L Alkaline Phosphatase 161 H (39-117) U/L Albumin 4.0 (3.5-5.0) g/dL Urine 05/15/22 Range/Units 19:35 Urine Color Dark Yellow Urine Appearance Clear Urine pH 5.5 (5.0-9.0) Ur Specific [place] 1.025 (1.005-1.025) Urine Protein Negative (Neg-Trace) mg/dL Urine Glucose (UA) Negative (Negative) mg/dL Assessment and Plan (1) Abnormal CT scan, colon: Status: Acute (2) Acute hip pain: Status: Acute Plan 61 YF with history of anxiety depression, fibromyalgia, chronic back pain admitted to [facility] on 05/15/22 with complaints of 4 day hx of right hip and suprapubic pelvic pain, denied any fall, no trauma. Pain was 10/10 in intensity and worse with walking.? She also noted intermittent sharp epigastric pain.? Patient reported chronic constipation and unintentional weight loss of 3 lbs over the past [address] scan worrisome for suspected metastatic colon cancer with TI involvement RECOMMENDATIONS: 1. Patient is scheduled for a colonoscopy today for further evaluation. Colonoscopy procedure and potential complications including bleeding, perforation, reaction to anesthetic and misdiagnosis were reviewed with the patient. 2. Agree with IV pain medications for pain control. 3. Omeprazole 20 mg daily for heartburn. Procedures Date of Service Date of Service: 05/16/22
[2022-05-16] MEDS: 0.9 % Sodium Chloride Flush 3 ML SYRINGE IVFLUSH ×2 (07:18→20:44)
--- NOTE | 2022-05-16 13:47 | P.PNIM_ITS ---
Subjective Subjective Date of Service: 05/16/22 Interval History: seen and examined this morning follow up for colonic mass reports improvement in abdominal pain. denies nausea, vomiting, dysuria Review of Systems Review of Systems: Yes all other systems are reviewed and are negative Constitutional Constitutional: Denies chills and Denies fever(s) Cardiovascular Cardiovascular: Denies chest pain, Denies palpitations and Denies dyspnea Respiratory Respiratory: Denies cough and Denies dyspnea Gastrointestinal Gastrointestinal: Denies abdominal pain, Denies nausea and Denies vomiting Endocrine Endocrine: Denies palpitations Physical Exam 2 Vital Signs: Vital Signs: Last Vital Signs Temp 100.1 F 05/16/22 07:12 Pulse 81 05/16/22 07:12 Resp 18 05/16/22 07:12 BP 107/60 05/16/22 07:12 Pulse Ox 96 05/16/22 07:12 O2 Del Method 05/16/22 07:12 BMI result Body Mass Index 33.0 Const: General: cooperative, comfortable, alert and awake Nutritional Appearance: overweight Orientation/consciousness: patient oriented x3 Resp: Effort & Inspection: normal respiratory effort and able to speak in complete sentences Auscultation: clear to auscultation bilaterally Cardio: Rate: regular rate Heart sounds: S1 normal heart sound present and S2 normal heart sound present GI: Inspection: No distended Palpation (GI): Soft to palpation and nontender Neuro: General: patient oriented x3 and CN's II-XI intact bilaterally Extrem: General: Yes no pedal edema Objective Data Active Medications Acetaminophen (Acetaminophen 325 Mg Tablet) 650 mg PO Q6H PRN PRN Reason: Pain, Mild (Pain Scale 1-3) Docusate Sodium (Docusate Sodium 100 Mg Capsule) 100 mg PO DAILY PRN PRN Reason: Constipation Gabapentin (Gabapentin 300 Mg Capsule) 300 mg PO TID [facility] Last Admin: 05/16/22 09:00 Dose: Not Given Documented By: SOM Non-Admin Reason: NPO Heparin Sodium (Porcine) (Heparin Sodium,Porcine 5,000 Unit/Ml Vial) 5,000 unit SUBCUT Q12H [facility] Last Admin: 05/16/22 10:27 Dose: Not Given Documented By: SOM Non-Admin Reason: Sched colonoscopy Ceftriaxone Sodium 1 gm/ (Sodium Chloride) 50 mls @ 100 mls/hr IV Q24H [facility] Lorazepam (Lorazepam 0.5 Mg Tablet) 0.5 mg PO DAILY PRN PRN Reason: Anxiety Morphine Sulfate (Morphine Sulfate 4 Mg/Ml Cartridge) 4 mg IVPUSH Q4H PRN; Protocol PRN Reason: Pain, Severe (Pain Scale 7-10) Multivitamins/Vitamin C (Multivitamin Tablet) 1 tab PO DAILY [facility] Last Admin: 05/16/22 09:00 Dose: Not Given Documented By: SOM Non-Admin Reason: NPO Ondansetron HCl (Ondansetron Hcl 4 Mg/2 Ml Vial) 4 mg IVPUSH Q8H PRN PRN Reason: Nausea and Vomiting Sodium Chloride (0.9 % Sodium Chloride Flush 3 Ml Syringe) 3 ml IVFLUSH QSHIFT [facility] Last Admin: 05/16/22 07:18 Dose: 3 ml Documented By: SOM Trazodone HCl (Trazodone Hcl 50 Mg Tablet) 50 mg PO BEDTIME [facility] Venlafaxine HCl (Venlafaxine Hcl Er 150 Mg Cap.Er.24h) 150 mg PO DAILY [facility] Last Admin: 05/16/22 09:00 Dose: Not Given Documented By: SOM Non-Admin Reason: NPO Labs CBC & Chem 7: 05/16/22 05:22 05/16/22 05:22 Labs: Laboratory Results - last 24 hr 05/15/22 05/15/22 05/15/22 19:35 19:35 19:35 MCV 87.2 MCH 29.3 MCHC 33.7 RDW 13.9 Plt Count 211 MPV 9.6 Immature Gran % (Auto) 0.4 Neut % (Auto) 64.3 Lymph % (Auto) 24.1 [place] % (Auto) 9.8 Eos % (Auto) 1.1 Baso % (Auto) 0.3 Lymph # (Auto) 2.5 [place] # (Auto) 1.0 Eos # (Auto) 0.1 Baso # (Auto) 0.0 Abs Immat Gran (auto) 0.04 H Absolute Neuts (auto) 6.7 Absolute Nucleated RBC 0.000 Nucleated RBC % (auto) 0.0 Anion Gap 11 L Estim Creat Clear Calc 71.0 Estimated GFR > 60 Random Glucose 95 Lactic Acid Calcium 9.7 Total Bilirubin 0.4 AST 17 ALT 19 Alkaline Phosphatase 161 H Total Protein 7.2 Albumin 4.0 Carcinoembryonic Ag Urine Color Dark Yellow Urine Appearance Clear Urine pH 5.5 Ur Specific [place] 1.025 Urine Protein Negative Urine Glucose (UA) Negative Urine Ketones Trace Urine Blood Negative Urine Nitrite Negative Ur Leukocyte Esterase Small (1+) H Urine RBC 3-5 H Urine WBC 6-10 H Ur Squamous Epith Cells 3-5 Urine Bacteria Trace Hyaline Casts 0-2 COVID-19 (ABHINAV) COVID-19 Clin Com 05/15/22 05/15/22 05/15/22 19:35 21:41 23:51 MCV MCH MCHC RDW Plt Count MPV Immature Gran % (Auto) Neut % (Auto) Lymph % (Auto) [place] % (Auto) Eos % (Auto) Baso % (Auto) Lymph # (Auto) [place] # (Auto) Eos # (Auto) Baso # (Auto) Abs Immat Gran (auto) Absolute Neuts (auto) Absolute Nucleated RBC Nucleated RBC % (auto) Anion Gap Estim Creat Clear Calc Estimated GFR Random Glucose Lactic Acid 0.7 Calcium Total Bilirubin AST ALT Alkaline Phosphatase Total Protein Albumin Carcinoembryonic Ag < 1.73 Urine Color Urine Appearance Urine pH Ur Specific [place] Urine Protein Urine Glucose (UA) Urine Ketones Urine Blood Urine Nitrite Ur Leukocyte Esterase Urine RBC Urine WBC Ur Squamous Epith Cells Urine Bacteria Hyaline Casts COVID-19 (ABHINAV) Negative COVID-19 Clin Com See Note 05/16/22 05/16/22 05:22 05:22 MCV 89.5 MCH 29.9 MCHC 33.4 RDW 13.8 Plt Count 210 MPV 9.8 Immature Gran % (Auto) 0.3 Neut % (Auto) 69.7 Lymph % (Auto) 19.1 L [place] % (Auto) 9.5 Eos % (Auto) 1.1 Baso % (Auto) 0.3 Lymph # (Auto) 2.5 [place] # (Auto) 1.3 H Eos # (Auto) 0.2 Baso # (Auto) 0.0 Abs Immat Gran (auto) 0.04 H Absolute Neuts (auto) 9.3 H Absolute Nucleated RBC 0.000 Nucleated RBC % (auto) 0.0 Anion Gap 11 L Estim Creat Clear Calc 72.3 Estimated GFR > 60 Random Glucose 113 Lactic Acid Calcium 9.6 Total Bilirubin AST ALT Alkaline Phosphatase Total Protein Albumin Carcinoembryonic Ag Urine Color Urine Appearance Urine pH Ur Specific [place] Urine Protein Urine Glucose (UA) Urine Ketones Urine Blood Urine Nitrite Ur Leukocyte Esterase Urine RBC Urine WBC Ur Squamous Epith Cells Urine Bacteria Hyaline Casts COVID-19 (ABHINAV) COVID-19 Clin Com Microbiology Microbiology Results: Microbiology 05/15/22 19:35 Urine Culture - Preliminary Urine clean catch - Urine zambrano top No growth to date. Assessment and Plan (1) Abnormal CT scan, colon: Status: Acute Plan 61-year-old female who presents to the hospital with complaints of pelvic abdominal pain as well as hip pain making it difficult to ambulate found to have likely colon cancer Colon mass has evidence of colon cancer on imaging of CT which is likely the cause of her pelvic pain seen by GI, plan for colonoscopy today - Hematology-Oncology consult UTI continue IV ceftriaxone follow urine culture hip pain no recent trauma or fall metastatic bone disease cannot be ruled out at this time - may require PET scan, but further management per Hematology/oncology - pain control depression/anxiety continue effextor, lorazepam DVT prophylaxis: Heparin subQ attending - dr. cao Given patient's need for further evaluation by Hematology-Oncology and GI patient require minimum 2 night inpatient hospital stay for further management Quality Stroke Does the patient have a stroke diagnosis?: No VTE Prior VTE?: No VTE Risk Level:: Medical - moderate - high VTE Device Contraindication: Treatment Not Indicated VTE Drug Contraindication: N/A - Med Ordered
--- NOTE | 2022-05-16 14:13 | P.CONAN_ITS ---
FORMERLY [facility] Active Problems Active Problems: All Active Problems (Updated 05/16/22 @ 08:15 by Ritesh Mullins MD) Abnormal CT scan, colon (Acute) Acute hip pain (Acute) Colon cancer (Acute) Urinary tract infection (Acute) Encounter for general adult medical examination with abnormal findings (Acute) Major depression, recurrent (Acute) Right shoulder pain (Acute) Low back pain (Acute) Headache (Acute) Difficulty sleeping (Acute) Chest pain, musculoskeletal (Acute) COVID-19 (Acute) Depression (Acute) Chronic back pain (Acute) Anxiety (Acute) Acute sinusitis (Acute) Homeless (Acute) Fibromyalgia (Acute) Past Medical History Medical History Anxiety Chronic back pain Depression Fibromyalgia Homeless Family History Family History Mother Kidney cancer Father Medical history unknown Other Mental health disorder Family history of problems with anesthesia: No Surgical History Surgical History Hx of appendectomy Hx of cholecystectomy History of Problems with Anesthesia: No Social History Social History Household Members: Children Household Members Other:: 1 Housing: Apartment Do you presently have visiting nurse or other home services: No Alcohol intake: never Patient Tobacco Use Status: Former Tobacco user Tobacco use type: Cigarette Smoked in Last 30 Days: No e-Cigarette/Vaping Use: Never Used Patient Interested in Nicotine Replacement: No Patient Given Instructions on How to Stop Smoking: No Second Hand Smoke Exposure: No Use of substances other than those prescribed or required for medical reasons: No Currently Displaying Signs/Symptoms of Drug Intoxication Withdrawal: No Any prior treatment program specific to substance use: No Have you been hit, kicked, punched, or otherwise hurt by someone within the past year? If so, by whom?: No Do you feel safe in your current relationship?: No Current Relationship Is there a partner from a previous relationship who is making you feel unsafe now?: No Are you made to feel afraid or neglected: No Are you DNR?: No Advance Directives: No Advance Directives Information Provided: No Do you have thoughts of harming others: None Do you have a plan to hurt others: No Plan Recently lost weight without trying: No Eating poorly because of decreased appetite: No Nutrition Risks: No Nutritional Risk Patient : No : No Poor oral hygiene: No Current occupational status: disabled Meds Allergies Allergy/AdvReac Type Severity Reaction Status Date / Time No Known Allergies Allergy Verified 04/10/22 14:53 Active Medications: Current Medications Acetaminophen (Acetaminophen 325 Mg Tablet) 650 mg PO Q6H PRN PRN Reason: Pain, Mild (Pain Scale 1-3) Docusate Sodium (Docusate Sodium 100 Mg Capsule) 100 mg PO DAILY PRN PRN Reason: Constipation Gabapentin (Gabapentin 300 Mg Capsule) 300 mg PO TID [facility] Last Admin: 05/16/22 14:10 Dose: Not Given Heparin Sodium (Porcine) (Heparin Sodium,Porcine 5,000 Unit/Ml Vial) 5,000 unit SUBCUT Q12H [facility] Last Admin: 05/16/22 10:27 Dose: Not Given Ceftriaxone Sodium 1 gm/ (Sodium Chloride) 50 mls @ 100 mls/hr IV Q24H [facility] Lorazepam (Lorazepam 0.5 Mg Tablet) 0.5 mg PO DAILY PRN PRN Reason: Anxiety Morphine Sulfate (Morphine Sulfate 4 Mg/Ml Cartridge) 4 mg IVPUSH Q4H PRN; Protocol PRN Reason: Pain, Severe (Pain Scale 7-10) Multivitamins/Vitamin C (Multivitamin Tablet) 1 tab PO DAILY [facility] Last Admin: 05/16/22 09:00 Dose: Not Given Ondansetron HCl (Ondansetron Hcl 4 Mg/2 Ml Vial) 4 mg IVPUSH Q8H PRN PRN Reason: Nausea and Vomiting Sodium Chloride (0.9 % Sodium Chloride Flush 3 Ml Syringe) 3 ml IVFLUSH QSHIFT [facility] Last Admin: 05/16/22 07:18 Dose: 3 ml Trazodone HCl (Trazodone Hcl 50 Mg Tablet) 50 mg PO BEDTIME [facility] Venlafaxine HCl (Venlafaxine Hcl Er 150 Mg Cap.Er.24h) 150 mg PO DAILY [facility] Last Admin: 05/16/22 09:00 Dose: Not Given Home Medications Medication Instructions Recorded Confirmed Last Taken Type venlafaxine 150 mg 150 mg PO DAILY 06/01/20 05/15/22 05/15/22 History capsule,extended release 24 hr (Effexor XR) naproxen sodium 220 mg tablet 220 mg PO Q12H PRN Pain 10/11/21 05/15/22 Unknown History (Aleve) trazodone 50 mg tablet 50 mg PO BEDTIME 10/11/21 05/15/22 05/15/22 History lorazepam 1 mg tablet 0.5 mg PO DAILY PRN Anxiety 04/10/22 05/15/22 Unknown History calcium carbonate 600 mg calcium 600 mg PO DAILY 05/15/22 05/15/22 05/15/22 History (1,500 mg) tablet cholecalciferol (vitamin D3) 25 25 mcg PO DAILY 05/15/22 05/15/22 05/15/22 History mcg (1,000 unit) tablet gabapentin 300 mg capsule 300 mg PO TID 05/15/22 05/15/22 05/15/22 History vitamin B complex 1 tab PO DAILY 05/15/22 05/15/22 05/15/22 History Exam Exam Date and Time: May 16, 2022 141 Height,Weight and Vital Signs: Height 5 ft 2 in Weight 81.9 kg Last Vital Signs Temp 97.7 F 05/16/22 13:38 Pulse 88 05/16/22 13:38 Resp 18 05/16/22 13:38 BP 126/78 05/16/22 13:38 Pulse Ox 98 05/16/22 13:38 O2 Del Method 05/16/22 13:38 Pertinent Lab Results Pertinent Lab Results: Laboratory Tests 05/15/22 05/15/22 05/15/22 19:35 19:35 19:35 WBC 10.5 RBC 4.67 Hgb 13.7 Hct 40.7 MCV 87.2 MCH 29.3 MCHC 33.7 RDW 13.9 Plt Count 211 MPV 9.6 Immature Gran % (Auto) 0.4 Neut % (Auto) 64.3 Lymph % (Auto) 24.1 [place] % (Auto) 9.8 Eos % (Auto) 1.1 Baso % (Auto) 0.3 Lymph # (Auto) 2.5 [place] # (Auto) 1.0 Eos # (Auto) 0.1 Baso # (Auto) 0.0 Abs Immat Gran (auto) 0.04 H Absolute Neuts (auto) 6.7 Absolute Nucleated RBC 0.000 Nucleated RBC % (auto) 0.0 Sodium 136 Potassium 3.9 Chloride 100 Carbon Dioxide 29 Anion Gap 11 L BUN 16 Creatinine 0.83 Estim Creat Clear Calc 71.0 Estimated GFR > 60 Random Glucose 95 Lactic Acid Calcium 9.7 Total Bilirubin 0.4 AST 17 ALT 19 Alkaline Phosphatase 161 H Total Protein 7.2 Albumin 4.0 Carcinoembryonic Ag Urine Color Dark Yellow Urine Appearance Clear Urine pH 5.5 Ur Specific [place] 1.025 Urine Protein Negative Urine Glucose (UA) Negative Urine Ketones Trace Urine Blood Negative Urine Nitrite Negative Ur Leukocyte Esterase Small (1+) H Urine RBC 3-5 H Urine WBC 6-10 H Ur Squamous Epith Cells 3-5 Urine Bacteria Trace Hyaline Casts 0-2 COVID-19 (ABHINAV) COVID-19 Clin Com 05/15/22 05/15/22 05/15/22 19:35 21:41 23:51 WBC RBC Hgb Hct MCV MCH MCHC RDW Plt Count MPV Immature Gran % (Auto) Neut % (Auto) Lymph % (Auto) [place] % (Auto) Eos % (Auto) Baso % (Auto) Lymph # (Auto) [place] # (Auto) Eos # (Auto) Baso # (Auto) Abs Immat Gran (auto) Absolute Neuts (auto) Absolute Nucleated RBC Nucleated RBC % (auto) Sodium Potassium Chloride Carbon Dioxide Anion Gap BUN Creatinine Estim Creat Clear Calc Estimated GFR Random Glucose Lactic Acid 0.7 Calcium Total Bilirubin AST ALT Alkaline Phosphatase Total Protein Albumin Carcinoembryonic Ag < 1.73 Urine Color Urine Appearance Urine pH Ur Specific [place] Urine Protein Urine Glucose (UA) Urine Ketones Urine Blood Urine Nitrite Ur Leukocyte Esterase Urine RBC Urine WBC Ur Squamous Epith Cells Urine Bacteria Hyaline Casts COVID-19 (ABHINAV) Negative COVID-19 Clin Com See Note 05/16/22 05/16/22 05:22 05:22 WBC 13.3 H RBC 4.58 Hgb 13.7 Hct 41.0 MCV 89.5 MCH 29.9 MCHC 33.4 RDW 13.8 Plt Count 210 MPV 9.8 Immature Gran % (Auto) 0.3 Neut % (Auto) 69.7 Lymph % (Auto) 19.1 L [place] % (Auto) 9.5 Eos % (Auto) 1.1 Baso % (Auto) 0.3 Lymph # (Auto) 2.5 [place] # (Auto) 1.3 H Eos # (Auto) 0.2 Baso # (Auto) 0.0 Abs Immat Gran (auto) 0.04 H Absolute Neuts (auto) 9.3 H Absolute Nucleated RBC 0.000 Nucleated RBC % (auto) 0.0 Sodium 135 Potassium 4.1 Chloride 99 Carbon Dioxide 29 Anion Gap 11 L BUN 16 Creatinine 0.83 Estim Creat Clear Calc 72.3 Estimated GFR > 60 Random Glucose 113 Lactic Acid Calcium 9.6 Total Bilirubin AST ALT Alkaline Phosphatase Total Protein Albumin Carcinoembryonic Ag Urine Color Urine Appearance Urine pH Ur Specific [place] Urine Protein Urine Glucose (UA) Urine Ketones Urine Blood Urine Nitrite Ur Leukocyte Esterase Urine RBC Urine WBC Ur Squamous Epith Cells Urine Bacteria Hyaline Casts COVID-19 (ABHINAV) COVID-19 Clin Com Airway Mallampati Class: II TM Dist: >3cm Neck ROM: Full Heart: rrr Lungs: cta Assessment and Plan Assessment Anesthesia Assessment: Anesthesia Plan Discussed and Chart Reviewed Final Anesthetic Review Family History of Problems with Anesthesia: No History of Problems with Anesthesia: No NPO: Yes ASA Class: II Final Preanesthetic Review: No Changes in Pt Med Stat, Meds/Allgs Chart Reviewed and Consent Obtained/Reviewed Patient Risk: Intermediate Procedure Risk: Intermediate Anesthetic Plan Anesthetic Plan: MAC: Disposition: Standard PACU
--- NOTE | 2022-05-16 15:20 | PM.OP ---
Brief Operative Note Date of Service: 05/16/22 Pre-op diagnosis: abdominal pain, abnormal CT scan of the colon Post-op diagnosis: other (hemorrhoids, poor prep) Procedure: Colonoscopy till hepatic flexure Surgeon: Ritesh Mullins MD Anesthesia: MAC Was an Director Of Engineering used for this Procedure?: No Estimated blood loss (mL): 0 Pathology: none sent Condition: stable Disposition: PACU
--- NOTE | 2022-05-16 15:20 | W.PM.OPN ---
Operative Note Operative Note Date of Service: 05/16/22 Narrative: Pre-op diagnosis: abdominal pain, abnormal CT scan of the colon Post-op diagnosis:?other (hemorrhoids, poor prep) Surgeon: Ritesh Mullins MD Anesthesia:?MAC COLONOSCOPY TILL PROXIMAL TRANSVERSE COLON/HEPATIC FLEXURE Consent: Indications for the procedure and potential complications of bleeding, perforation, reaction to medications and missed diagnosis were discussed with the patient and informed consent was obtained. Instrument: Olympus PCF H 190 L variable stiffness pediatric colonoscope Monitoring: Vital signs and clinical assessment, intermittent blood pressure monitoring, continuous EKG monitoring, Pulse oximetry and Carbon Dioxide monitoring were done throughout the procedure. Procedure: The patient was placed in the left lateral decubitis position and pre-procedure medications were administered. After a digital rectal examination of the ano-rectum, the video colonoscope was inserted into the rectum and advanced through the colon to the proximal TC/hepatic flexure. It was not possible to advance further due to sub-optimal prep and recurrent looping with lack of scope. The colonoscope was removed and procedure was abandoned. Findings and interventions are described below. Procedure Difficulty: Pt was placed in the supine position and LLQ pressure was applied to intubate the ascending colon without success Findings: Terminal Ileum: Not evaluated Cecum: Not evaluated Ascending Colon: Not evaluated Transverse Colon: Partially evaluated due to suboptimal prep Descending Colon: Partially evaluated due to suboptimal prep Sigmoid Colon: Partially evaluated due to suboptimal prep Rectum: Partially evaluated due to suboptimal prep Ano-rectum: Moderate internal hemorrhoids Colon preparation: poor Impression and Post Procedure Diagnosis: Colonoscopy Findings: Incomplete colonoscopy till hepatic flexure. Colon was partially evaluated due to suboptimal prep Moderate hemorrhoids on antegrade withdrawl of the colonoscope. Plan: Continue clear liquid diet tonight and NPO after midnight tonight. Dulcolax 2 tablets and Golytely prep 2 litres PO tonight Repeat Colonoscopy scheduled on 05/17/22 at 10 am with adult colonoscope. Above findings were reviewed with the patient.
--- NOTE | 2022-05-16 15:54 | PM.HEMONCCN ---
Subjective - Subjective Primary Care Provider: Dunia Guajardo MD HPI - Consult Narrative Narrative: [place] Godinez is a 61 year old female Review of Systems - Neurologic Reports headache(s) PMFSH Medical History: Medical History (Last Reviewed 05/16/22 @ 06:42 by Ethel Domínguez MD) Anxiety Chronic back pain Depression Fibromyalgia Homeless Family History: Family History (Last Reviewed 05/16/22 @ 06:42 by Ethel Domínguez MD) Mother Kidney cancer Father Medical history unknown Other Mental health disorder Surgical History: Surgical History (Last Reviewed 05/16/22 @ 06:42 by Ethel Domínguez MD) Hx of appendectomy Hx of cholecystectomy Social History: Social History (Last Reviewed 05/16/22 @ 06:42 by Ethel Domínguez MD) Living Situation History: Household Members: Children Household Members Other:: 1 Housing: Apartment Do you presently have visiting nurse or other home services: No Alcohol History Details: 1. How often do you have a drink containing alcohol?: a. Never AUDIT-C Alcohol total score: 0 Currently Displaying Signs/Symptoms of Alcohol Withdrawal: No Tobacco History: Patient Tobacco Use Status: Former Tobacco user Tobacco use type: Cigarette Smoked in Last 30 Days: No e-Cigarette/Vaping Use: Never Used Patient Interested in Nicotine Replacement: No Patient Given Instructions on How to Stop Smoking: No Second Hand Smoke Exposure: No Substance Use History: Use of substances other than those prescribed or required for medical reasons: No Currently Displaying Signs/Symptoms of Drug Intoxication Withdrawal: No Any prior treatment program specific to substance use: No Domestic Abuse History: Have you been hit, kicked, punched, or otherwise hurt by someone within the past year? If so, by whom?: No Do you feel safe in your current relationship?: No Current Relationship Is there a partner from a previous relationship who is making you feel unsafe now?: No Are you made to feel afraid or neglected: No Advance Directives: Advance Directives: No Advance Directives Information Provided: No Homicidal Assessment: Do you have thoughts of harming others: None Do you have a plan to hurt others: No Plan Nutrition Assessment: Recently lost weight without trying: No Eating poorly because of decreased appetite: No Nutrition Risks: No Nutritional Risk Patient : No : No Poor oral hygiene: No Occupation Assessmet: Current occupational status: disabled Home Medications and Allergies Current Medications: Current Medications Acetaminophen (Acetaminophen 325 Mg Tablet) 650 mg PO Q6H PRN PRN Reason: Pain, Mild (Pain Scale 1-3) Docusate Sodium (Docusate Sodium 100 Mg Capsule) 100 mg PO DAILY PRN PRN Reason: Constipation Gabapentin (Gabapentin 300 Mg Capsule) 300 mg PO TID [facility] Last Admin: 05/16/22 14:10 Dose: Not Given Heparin Sodium (Porcine) (Heparin Sodium,Porcine 5,000 Unit/Ml Vial) 5,000 unit SUBCUT Q12H [facility] Last Admin: 05/16/22 10:27 Dose: Not Given Ceftriaxone Sodium 1 gm/ (Sodium Chloride) 50 mls @ 100 mls/hr IV Q24H [facility] Lorazepam (Lorazepam 0.5 Mg Tablet) 0.5 mg PO DAILY PRN PRN Reason: Anxiety Morphine Sulfate (Morphine Sulfate 4 Mg/Ml Cartridge) 4 mg IVPUSH Q4H PRN; Protocol PRN Reason: Pain, Severe (Pain Scale 7-10) Multivitamins/Vitamin C (Multivitamin Tablet) 1 tab PO DAILY [facility] Last Admin: 05/16/22 09:00 Dose: Not Given Ondansetron HCl (Ondansetron Hcl 4 Mg/2 Ml Vial) 4 mg IVPUSH Q8H PRN PRN Reason: Nausea and Vomiting Sodium Chloride (0.9 % Sodium Chloride Flush 3 Ml Syringe) 3 ml IVFLUSH QSHIFT [facility] Last Admin: 05/16/22 07:18 Dose: 3 ml Trazodone HCl (Trazodone Hcl 50 Mg Tablet) 50 mg PO BEDTIME [facility] Venlafaxine HCl (Venlafaxine Hcl Er 150 Mg Cap.Er.24h) 150 mg PO DAILY [facility] Last Admin: 05/16/22 09:00 Dose: Not Given Home Medications Medication Instructions Recorded Confirmed Type venlafaxine 150 mg 150 mg PO DAILY 06/01/20 05/15/22 History capsule,extended release 24 hr (Effexor XR) naproxen sodium 220 mg tablet 220 mg PO Q12H PRN Pain 10/11/21 05/15/22 History (Aleve) trazodone 50 mg tablet 50 mg PO BEDTIME 10/11/21 05/15/22 History lorazepam 1 mg tablet 0.5 mg PO DAILY PRN Anxiety 04/10/22 05/15/22 History calcium carbonate 600 mg calcium 600 mg PO DAILY 05/15/22 05/15/22 History (1,500 mg) tablet cholecalciferol (vitamin D3) 25 25 mcg PO DAILY 05/15/22 05/15/22 History mcg (1,000 unit) tablet gabapentin 300 mg capsule 300 mg PO TID 05/15/22 05/15/22 History vitamin B complex 1 tab PO DAILY 05/15/22 05/15/22 History Allergies Allergy/AdvReac Type Severity Reaction Status Date / Time No Known Allergies Allergy Verified 04/10/22 14:53 Physical Exam Vital signs: Vital Signs Temp 97.7 F 05/16/22 13:38 Pulse 88 05/16/22 13:38 Resp 18 05/16/22 13:38 BP 126/78 05/16/22 13:38 Pulse Ox 98 05/16/22 13:38 O2 Del Method 05/16/22 13:38 Intake & Output 05/15/22 05/16/22 05/16/22 18:59 06:59 18:59 Intake Total 1050 / 1050 Output Total 3 / 3 Balance 1047 / 1047 Intake: Intake, IV Amount 1050 / 1050 cefTRIAXone sodium 1 gm In 0.9 50 / 50 % Sodium Chloride 50 ml @ 100 mls/hr IV ONCE ONE Rx#: [id number] 0.9 % Sodium Chloride 1,000 ml 1000 / 1000 @ 999 mls/hr IVCONT .Q1H1M MINDY Rx#:[id number] Output: Output, Stool Amount 3 / 3 Other: Meal Refused No NPO Yes Number of Unmeasured Voids 2 1 Urine Bathroom Bathroom Urine Color Yellow Last Bowel Movement 05/16/22 Stool Bathroom Stool Color Yellow Stool Consistency Watery Weight 78.925 kg 81.9 kg [place] Weight in Grams 89380 Weight 81.9 kg Hem/Onc Consult Result - Labs CBC & Chem 7: 05/16/22 05:22 05/16/22 05:22 Labs: Short CBC 05/15/22 05/16/22 Range/Units 19:35 05:22 WBC 10.5 13.3 H (4.8-10.8) X10*3/uL Hgb 13.7 13.7 (12.0-16.0) g/dl Hct 40.7 41.0 (37.0-47.0) % Plt Count 211 210 (160-400) X10*3/uL BMP 05/15/22 05/16/22 19:35 05:22 Sodium 136 135 Potassium 3.9 4.1 Chloride 100 99 Carbon Dioxide 29 29 BUN 16 16 Creatinine 0.83 0.83 Calcium 9.7 9.6 Liver Function 05/15/22 Range/Units 19:35 Total Bilirubin 0.4 (0.0-1.0) mg/dL AST 17 (5-31) U/L ALT 19 (0-31) U/L Alkaline Phosphatase 161 H (39-117) U/L Albumin 4.0 (3.5-5.0) g/dL Urine 05/15/22 Range/Units 19:35 Urine Color Dark Yellow Urine Appearance Clear Urine pH 5.5 (5.0-9.0) Ur Specific [place] 1.025 (1.005-1.025) Urine Protein Negative (Neg-Trace) mg/dL Urine Glucose (UA) Negative (Negative) mg/dL
[2022-05-16] MEDS: PEG 3350/Na Sulf,Bicarb,Cl/KCL 4,000 ML SOLN.RECON 2000 ML PO (17:51)
[2022-05-16] MEDS: bisacodyL 5 MG TABLET.DR 10 MG PO (17:52)
[2022-05-16] MEDS: Gabapentin 300 MG CAPSULE PO (20:44)
[2022-05-16] MEDS: traZODone HCL 50 MG TABLET PO (20:44)
[2022-05-16] MEDS: cefTRIAXone sodium 1 GM in 0.9 % Sodium Chloride 50 ML IV (20:49)
[2022-05-16] MEDS: Heparin Sodium,Porcine 5,000 UNIT/ML VIAL 5000 UNIT SUBCUT (20:52)
[2022-05-17] VITALS (8 sets, daily range): BP systolic 110–154; BP diastolic 58–80; PULSE 71–96; RESP 16–18; TEMP 36.1–38; O2SAT 96–97
[2022-05-17] MEDS: Acetaminophen 325 MG TABLET 650 MG PO (03:12)
[2022-05-17 08:14] LABS: Hematocrit 37.1 % (37.0-47.0); Hemoglobin 12.4 g/dl (12.0-16.0); Mean Corpuscular HGB Conc 33.4 g/dl (31.0-35.0); Mean Corpuscular Hemoglobin 29.4 pg (27.0-33.0); Mean Corpuscular Volume 87.9 fL (80.0-98.0); Mean Platelet Volume 9.5 fL (9.4-12.3); Platelet Count 178 X10*3/uL (160-400); Red Blood Count 4.22 X10*6/uL (4.20-5.50); Red Cell Distribution Width 13.7 % (11.0-16.0); White Blood Count 10.2 X10*3/uL (4.8-10.8)
[2022-05-17] MEDS: 0.9 % Sodium Chloride Flush 3 ML SYRINGE IVFLUSH ×2 (09:10→16:38)
[2022-05-17] MEDS: Multivitamin TABLET 1 TAB PO (09:11)
[2022-05-17] MEDS: Venlafaxine HCl ER 150 MG CAP.ER.24H PO (09:11)
[2022-05-17] MEDS: Gabapentin 300 MG CAPSULE PO ×2 (09:11→16:37)
--- NOTE | 2022-05-17 10:01 | P.CONAN_ITS ---
[facility] Active Problems Active Problems: All Active Problems (Updated 05/16/22 @ 15:55 by Piedad Robles MD) Abnormal CT scan, colon (Acute) Acute hip pain (Acute) Colon cancer (Acute) Urinary tract infection (Acute) Encounter for general adult medical examination with abnormal findings (Acute) Major depression, recurrent (Acute) Right shoulder pain (Acute) Low back pain (Acute) Headache (Acute) Difficulty sleeping (Acute) Chest pain, musculoskeletal (Acute) COVID-19 (Acute) Depression (Acute) Chronic back pain (Acute) Anxiety (Acute) Acute sinusitis (Acute) Homeless (Acute) Fibromyalgia (Acute) Past Medical History Medical History Anxiety Chronic back pain Depression Fibromyalgia Homeless Family History Family History Mother Kidney cancer Father Medical history unknown Other Mental health disorder Family history of problems with anesthesia: No Surgical History Surgical History Hx of appendectomy Hx of cholecystectomy History of Problems with Anesthesia: No Social History Social History Household Members: Children Household Members Other:: 1 Housing: Apartment Do you presently have visiting nurse or other home services: No Alcohol intake: never Patient Tobacco Use Status: Former Tobacco user Tobacco use type: Cigarette Smoked in Last 30 Days: No e-Cigarette/Vaping Use: Never Used Patient Interested in Nicotine Replacement: No Patient Given Instructions on How to Stop Smoking: No Second Hand Smoke Exposure: No Use of substances other than those prescribed or required for medical reasons: No Currently Displaying Signs/Symptoms of Drug Intoxication Withdrawal: No Any prior treatment program specific to substance use: No Have you been hit, kicked, punched, or otherwise hurt by someone within the past year? If so, by whom?: No Do you feel safe in your current relationship?: No Current Relationship Is there a partner from a previous relationship who is making you feel unsafe now?: No Are you made to feel afraid or neglected: No Are you DNR?: No Advance Directives: No Advance Directives Information Provided: No Do you have thoughts of harming others: None Do you have a plan to hurt others: No Plan Recently lost weight without trying: No Eating poorly because of decreased appetite: No Nutrition Risks: No Nutritional Risk Patient : No : No Poor oral hygiene: No Current occupational status: disabled Meds Allergies Allergy/AdvReac Type Severity Reaction Status Date / Time No Known Allergies Allergy Verified 04/10/22 14:53 Active Medications: Current Medications Acetaminophen (Acetaminophen 325 Mg Tablet) 650 mg PO Q6H PRN PRN Reason: Pain, Mild (Pain Scale 1-3) Last Admin: 05/17/22 03:12 Dose: 650 mg Docusate Sodium (Docusate Sodium 100 Mg Capsule) 100 mg PO DAILY PRN PRN Reason: Constipation Gabapentin (Gabapentin 300 Mg Capsule) 300 mg PO TID [facility] Last Admin: 05/17/22 09:11 Dose: 300 mg Heparin Sodium (Porcine) (Heparin Sodium,Porcine 5,000 Unit/Ml Vial) 5,000 unit SUBCUT Q12H [facility] Last Admin: 05/16/22 20:52 Dose: 5,000 unit Ceftriaxone Sodium 1 gm/ (Sodium Chloride) 50 mls @ 100 mls/hr IV Q24H [facility] Last Infusion: 05/16/22 21:23 Dose: Infused Lorazepam (Lorazepam 0.5 Mg Tablet) 0.5 mg PO DAILY PRN PRN Reason: Anxiety Morphine Sulfate (Morphine Sulfate 4 Mg/Ml Cartridge) 4 mg IVPUSH Q4H PRN; Protocol PRN Reason: Pain, Severe (Pain Scale 7-10) Multivitamins/Vitamin C (Multivitamin Tablet) 1 tab PO DAILY [facility] Last Admin: 05/17/22 09:11 Dose: 1 tab Ondansetron HCl (Ondansetron Hcl 4 Mg/2 Ml Vial) 4 mg IVPUSH Q8H PRN PRN Reason: Nausea and Vomiting Sodium Chloride (0.9 % Sodium Chloride Flush 3 Ml Syringe) 3 ml IVFLUSH QSHIFT [facility] Last Admin: 05/17/22 09:10 Dose: 3 ml Trazodone HCl (Trazodone Hcl 50 Mg Tablet) 50 mg PO BEDTIME [facility] Last Admin: 05/16/22 20:44 Dose: 50 mg Venlafaxine HCl (Venlafaxine Hcl Er 150 Mg Cap.Er.24h) 150 mg PO DAILY [facility] Last Admin: 05/17/22 09:11 Dose: 150 mg Home Medications Medication Instructions Recorded Confirmed Last Taken Type venlafaxine 150 mg 150 mg PO DAILY 06/01/20 05/15/2205/15/22 History capsule,extended release 24 hr (Effexor XR) naproxen sodium 220 mg tablet 220 mg PO Q12H PRN Pain 10/11/21 05/15/22 Unknown History (Aleve) trazodone 50 mg tablet 50 mg PO BEDTIME 10/11/21 05/15/22 05/15/22 History lorazepam 1 mg tablet 0.5 mg PO DAILY PRN Anxiety 04/10/22 05/15/22 Unknown History calcium carbonate 600 mg calcium 600 mg PO DAILY 05/15/22 05/15/22 05/15/22 History (1,500 mg) tablet cholecalciferol (vitamin D3) 25 25 mcg PO DAILY 05/15/22 05/15/22 05/15/22 History mcg (1,000 unit) tablet gabapentin 300 mg capsule 300 mg PO TID 05/15/22 05/15/22 05/15/22 History vitamin B complex 1 tab PO DAILY 05/15/22 05/15/22 05/15/22 History Exam Exam Date and Time: May 17, 2022 1001 Height,Weight and Vital Signs: Height 5 ft 2 in Weight 81.9 kg Last Vital Signs Temp 98.1 F 05/17/22 07:42 Pulse 76 05/17/22 07:42 Resp 18 05/17/22 07:42 BP 110/58 L 05/17/22 07:42 Pulse Ox 96 05/17/22 07:42 O2 Del Method 05/17/22 07:42 Pertinent Lab Results Pertinent Lab Results: Laboratory Tests 05/15/22 05/15/22 05/15/22 19:35 19:35 19:35 WBC 10.5 RBC 4.67 Hgb 13.7 Hct 40.7 MCV 87.2 MCH 29.3 MCHC 33.7 RDW 13.9 Plt Count 211 MPV 9.6 Immature Gran % (Auto) 0.4 Neut % (Auto) 64.3 Lymph % (Auto) 24.1 [place] % (Auto) 9.8 Eos % (Auto) 1.1 Baso % (Auto) 0.3 Lymph # (Auto) 2.5 [place] # (Auto) 1.0 Eos # (Auto) 0.1 Baso # (Auto) 0.0 Abs Immat Gran (auto) 0.04 H Absolute Neuts (auto) 6.7 Absolute Nucleated RBC 0.000 Nucleated RBC % (auto) 0.0 Sodium 136 Potassium 3.9 Chloride 100 Carbon Dioxide 29 Anion Gap 11 L BUN 16 Creatinine 0.83 Estim Creat Clear Calc 71.0 Estimated GFR > 60 Random Glucose 95 Lactic Acid Calcium 9.7 Total Bilirubin 0.4 AST 17 ALT 19 Alkaline Phosphatase 161 H Total Protein 7.2 Albumin 4.0 Carcinoembryonic Ag Urine Color Dark Yellow Urine Appearance Clear Urine pH 5.5 Ur Specific [place] 1.025 Urine Protein Negative Urine Glucose (UA) Negative Urine Ketones Trace Urine Blood Negative Urine Nitrite Negative Ur Leukocyte Esterase Small (1+) H Urine RBC 3-5 H Urine WBC 6-10 H Ur Squamous Epith Cells 3-5 Urine Bacteria Trace Hyaline Casts 0-2 COVID-19 (ABHINAV) COVID-19 [employer] 05/15/22 05/15/22 05/15/22 19:35 21:41 23:51 WBC RBC Hgb Hct MCV MCH MCHC RDW Plt Count MPV Immature Gran % (Auto) Neut % (Auto) Lymph % (Auto) [place] % (Auto) Eos % (Auto) Baso % (Auto) Lymph # (Auto) [place] # (Auto) Eos # (Auto) Baso # (Auto) Abs Immat Gran (auto) Absolute Neuts (auto) Absolute Nucleated RBC Nucleated RBC % (auto) Sodium Potassium Chloride Carbon Dioxide Anion Gap BUN Creatinine Estim Creat Clear Calc Estimated GFR Random Glucose Lactic Acid 0.7 Calcium Total Bilirubin AST ALT Alkaline Phosphatase Total Protein Albumin Carcinoembryonic Ag < 1.73 Urine Color Urine Appearance Urine pH Ur Specific [place] Urine Protein Urine Glucose (UA) Urine Ketones Urine Blood Urine Nitrite Ur Leukocyte Esterase Urine RBC Urine WBC Ur Squamous Epith Cells Urine Bacteria Hyaline Casts COVID-19 (ABHINAV) Negative COVID-19 Clin Com See Note 05/16/22 05/16/22 05/17/22 05:22 05:22 08:08 WBC 13.3 H 10.2 RBC 4.58 4.22 Hgb 13.7 12.4 Hct 41.0 37.1 MCV 89.5 87.9 MCH 29.9 29.4 MCHC 33.4 33.4 RDW 13.8 13.7 Plt Count 210 178 MPV 9.8 9.5 Immature Gran % (Auto) 0.3 Neut % (Auto) 69.7 Lymph % (Auto) 19.1 L [place] % (Auto) 9.5 Eos % (Auto) 1.1 Baso % (Auto) 0.3 Lymph # (Auto) 2.5 [place] # (Auto) 1.3 H Eos # (Auto) 0.2 Baso # (Auto) 0.0 Abs Immat Gran (auto) 0.04 H Absolute Neuts (auto) 9.3 H Absolute Nucleated RBC 0.000 0.000 Nucleated RBC % (auto) 0.0 0.0 Sodium 135 Potassium 4.1 Chloride 99 Carbon Dioxide 29 Anion Gap 11 L BUN 16 Creatinine 0.83 Estim Creat Clear Calc 72.3 Estimated GFR > 60 Random Glucose 113 Lactic Acid Calcium 9.6 Total Bilirubin AST ALT Alkaline Phosphatase Total Protein Albumin Carcinoembryonic Ag Urine Color Urine Appearance Urine pH Ur Specific [place] Urine Protein Urine Glucose (UA) Urine Ketones Urine Blood Urine Nitrite Ur Leukocyte Esterase Urine RBC Urine WBC Ur Squamous Epith Cells Urine Bacteria Hyaline Casts COVID-19 (ABHINAV) COVID-19 Clin Com Airway Mallampati Class: II TM Dist: >3cm Neck ROM: Full Heart: RRR Lungs: CTA Assessment and Plan Final Anesthetic Review Family History of Problems with Anesthesia: No History of Problems with Anesthesia: No ASA Class: II Final Preanesthetic Review: No Changes in Pt Med Stat, Meds/Allgs Chart Reviewed, Consent Obtained/Reviewed and Anes Risks/Benef Reviewed Patient Risk: Low Procedure Risk: Low Anesthetic Plan Anesthetic Plan: MAC: Disposition: Standard PACU
--- NOTE | 2022-05-17 10:11 | MHC.SHP ---
Pre-Procedural Eval Section A Date of Service: 05/17/22 The patient is an INPATIENT: Yes Changes since office visit: Yes New Medical Problems, Yes Changes in Medication and Yes Patient answered all questions; No Cold of Flu in the past 2 weeks The History & Physical has been completed within 30 days and I have reviewed it.: Yes Section B Chief Complaint: colon cancer, UTI Allergies: Allergies Allergy/AdvReac Type Severity Reaction Status Date / Time No Known Allergies Allergy Verified 04/10/22 14:53 Plan I have reviewed the history and physical and performed a pertinent physical examination on my patient. No changes have occurred unless specified.
--- NOTE | 2022-05-17 10:13 | P.BOP_ITS ---
Brief Operative Note Date of Service: 05/17/22 Pre-op diagnosis: abdominal pain, abnormal CT scan of the colon Post-op diagnosis: other (Colon polyp, diverticulosis, hemorrhoids, patchy erythema in the left colon and rectum) Procedure: COLONOSCOPY TILL CECUM WITH BIOPSIES Surgeon: Ritesh Mullins MD Anesthesia: MAC Was an Song Lyricist used for this Procedure?: Yes Song Lyricist: Pedrito Santiago Estimated blood loss (mL): 0 Pathology: other (A- SIGMOID COLON POLYP B- BX ERYTHEMIA ON FOLD AT 40 CM C- RECTAL BX R/O PROCTITIS) Condition: stable Disposition: PACU
--- NOTE | 2022-05-17 10:14 | P.OP_ITS ---
Operative Note Operative Note Date of Service: 05/17/22 Narrative: Pre-op diagnosis: abdominal pain, abnormal CT scan of the colon Post-op diagnosis:?other (Colon polyp, diverticulosis, hemorrhoids, patchy erythema in the left colon and rectum) Surgeon: Ritesh Mullins MD Anesthesia:?MAC COLONOSCOPY TILL CECUM WITH BIOPSIES Consent: Indications for the procedure and potential complications of bleeding, perforation, reaction to medications and missed diagnosis were discussed with the patient and informed consent was obtained. Instrument: Olympus CF H 190 L variable stiffness adult colonoscope Monitoring: Vital signs and clinical assessment, intermittent blood pressure monitoring, continuous EKG monitoring, Pulse oximetry and Carbon Dioxide monitoring were done throughout the procedure. Colon withdrawl time was 27 minutes. Procedure: The patient was placed in the left lateral decubitis position and pre-procedure medications were administered. After a digital rectal examination of the ano-rectum, the video colonoscope was inserted into the rectum and advanced through the colon to the cecum. The colonoscope was slowly withdrawn in a retrograde panoramic fashion and the colon mucosa was carefully examined including a retroflexed view of the rectum. Findings and interventions are described below. Procedure Difficulty: Colon was long and tortuous and there was recurrent loop formation. LLQ pressure was applied to intubate the ascending colon Findings: Terminal Ileum: Not evaluated Cecum: Normal Ascending Colon: Normal - No mass visualized Transverse Colon: Normal Descending Colon: Normal Sigmoid Colon: A 5-6 mm diminutive appearing polyp at 50 cm - removed with a cold biopsy. Patchy erythema with scattered ulcers in the sigmoid colon and rectum with an erythematous fold at 40 cms - random biopsies were obtained. Moderate d iverticulosis Rectum: Normal Ano-rectum: Moderate internal hemorrhoids Colon preparation: Good Impression and Post Procedure Diagnosis: Colonoscopy Findings: One diminutive appearing polyp removed. Patchy erythema in the sigmoid colon and rectum with an erythematous fold at 40 cms - (? resolving infectious colitis versus scope trauma) random biopsies were obtained Moderate diverticulosis seen in the sigmoid colon Moderate hemorrhoids on antegrade exam. Plan: Proceed with repeat abdominal CT scan today as scheduled. I will contact the patient with biopsy results. Repeat Colonoscopy interval based on path results - in 5 yrs if polyp is adenomatous and 10 years if polyp is hyperplastic. Above findings were reviewed with the patient.
--- NOTE | 2022-05-17 10:37 | P.PNIM_ITS ---
Subjective Subjective Date of Service: 05/17/22 Interval History: seen and examined this morning follow up for colon mass seen on imaging attempted colonoscopy ready but due to poor prep repeat planned for today denies abdominal pain, nausea or vomiting Review of Systems Review of Systems: Yes all other systems are reviewed and are negative Constitutional Constitutional: Denies chills and Denies fever(s) Cardiovascular Cardiovascular: Denies chest pain, Denies palpitations and Denies dyspnea Respiratory Respiratory: Denies cough and Denies dyspnea Gastrointestinal Gastrointestinal: Denies abdominal pain, Denies nausea and Denies vomiting Endocrine Endocrine: Denies palpitations Physical Exam Vital Signs: Vital Signs: Last Vital Signs Temp 98.1 F 05/17/22 07:42 Pulse 76 05/17/22 07:42 Resp 18 05/17/22 07:42 BP 110/58 L 05/17/22 07:42 Pulse Ox 96 05/17/22 07:42 O2 Del Method 05/17/22 07:42 BMI result Body Mass Index 33.0 Const: General: cooperative, comfortable, alert and awake Nutritional Appearance: overweight Orientation/consciousness: patient oriented x3 Resp: Effort & Inspection: normal respiratory effort and able to speak in complete sentences Auscultation: clear to auscultation bilaterally Cardio: Rate: regular rate Heart sounds: S1 normal heart sound present and S2 normal heart sound present GI: Inspection: No distended Palpation (GI): Soft to palpation and nontender Neuro: General: patient oriented x3 and CN's II-XI intact bilaterally Extrem: General: Yes no pedal edema Objective Data Active Medications Acetaminophen (Acetaminophen 325 Mg Tablet) 650 mg PO Q6H PRN PRN Reason: Pain, Mild (Pain Scale 1-3) Last Admin: 05/17/22 03:12 Dose: 650 mg Documented By: LADARIUS Docusate Sodium (Docusate Sodium 100 Mg Capsule) 100 mg PO DAILY PRN PRN Reason: Constipation Gabapentin (Gabapentin 300 Mg Capsule) 300 mg PO TID [facility] Last Admin: 05/17/22 09:11 Dose: 300 mg Documented By: LEO Heparin Sodium (Porcine) (Heparin Sodium,Porcine 5,000 Unit/Ml Vial) 5,000 unit SUBCUT Q12H [facility] Last Admin: 05/16/22 20:52 Dose: 5,000 unit Documented By: LADARIUS Ceftriaxone Sodium 1 gm/ (Sodium Chloride) 50 mls @ 100 mls/hr IV Q24H [facility] Last Infusion: 05/16/22 21:23 Dose: 0 mls/hr Documented By: LADARIUS Lorazepam (Lorazepam 0.5 Mg Tablet) 0.5 mg PO DAILY PRN PRN Reason: Anxiety Morphine Sulfate (Morphine Sulfate 4 Mg/Ml Cartridge) 4 mg IVPUSH Q4H PRN; Protocol PRN Reason: Pain, Severe (Pain Scale 7-10) Multivitamins/Vitamin C (Multivitamin Tablet) 1 tab PO DAILY [facility] Last Admin: 05/17/22 09:11 Dose: 1 tab Documented By: LEO Ondansetron HCl (Ondansetron Hcl 4 Mg/2 Ml Vial) 4 mg IVPUSH Q8H PRN PRN Reason: Nausea and Vomiting Sodium Chloride (0.9 % Sodium Chloride Flush 3 Ml Syringe) 3 ml IVFLUSH QSHIFT [facility] Last Admin: 05/17/22 09:10 Dose: 3 ml Documented By: LEO Trazodone HCl (Trazodone Hcl 50 Mg Tablet) 50 mg PO BEDTIME [facility] Last Admin: 05/16/22 20:44 Dose: 50 mg Documented By: LADARIUS Venlafaxine HCl (Venlafaxine Hcl Er 150 Mg Cap.Er.24h) 150 mg PO DAILY [facility] Last Admin: 05/17/22 09:11 Dose: 150 mg Documented By: LEO Labs CBC & Chem 7: 05/17/22 08:08 05/16/22 05:22 Labs: Laboratory Results - last 24 hr 05/17/22 08:08 MCV 87.9 MCH 29.4 MCHC 33.4 RDW 13.7 Plt Count 178 MPV 9.5 Absolute Nucleated RBC 0.000 Nucleated RBC % (auto) 0.0 Microbiology Microbiology Results: Microbiology 05/15/22 22:00 Blood Culture - Preliminary Blood - Venous Prelim: GPC Gram Stain only 05/15/22 21:41 Blood Culture - Preliminary Blood - Venous No growth after 24 hours. 05/15/22 19:35 Urine Culture - Preliminary Urine clean catch - Urine zambrano top No growth to date. Assessment and Plan (1) Abnormal CT scan, colon: Status: Acute Plan 61-year-old female who presents to the hospital with complaints of pelvic abdominal pain as well as hip pain making it difficult to ambulate found to have likely colon cancer Colon mass findings concerning for colon neoplasm seen on imaging which is likely the cause of her pelvic pain seen by GI, attempted colonscopy 05/16 but due to poor prep plan for repeat today - Hematology-Oncology consult - requested abdominal/pelvis CT with IV contrast, ordered, pending UTI urine culture negative, asymptomatic will d/c abx + blood culture 1/2 blood cultures growing GPC - likely contaminant follow final blood cultures hip pain no recent trauma or fall resolved depression/anxiety continue effextor,? lorazepam DVT prophylaxis:? Heparin subQ attending - dr. cao Given patient's need for further evaluation by Hematology-Oncology and GI patient require minimum 2 night inpatient hospital stay for further management Quality Stroke Does the patient have a stroke diagnosis?: No VTE Prior VTE?: No VTE Risk Level:: Medical - moderate - high VTE Device Contraindication: Treatment Not Indicated VTE Drug Contraindication: N/A - Med Ordered
--- NOTE | 2022-05-17 11:28 | HO.POSTANES ---
Post Anesthesia Evaluation Post Anesthesia Evaluation Vital Signs: Vital Signs Temp Pulse Resp BP Pulse Ox O2 Del Method 05/17/22 11:25 98.1 F 80 16 112/59 L 97 Room Air 05/17/22 11:10 97 F 84 16 118/61 97 Room Air 05/17/22 07:42 98.1 F 76 18 110/58 L 96 Room Air 05/17/22 04:00 97.8 F 05/17/22 03:05 100.4 F 96 18 112/71 96 Room Air Anesthesia: Monitored Mental Status: Awake Pain Control: Satisfactory Nausea/Vomiting: None Hydration: Adequate Anesthesia-Related Issues: No Anes. Related Issues
[2022-05-17] MEDS: iohexoL 350 MG/ML 100 ML INFUS..BTL 85 ML IV (12:24)
[2022-05-17] MEDS: Heparin Sodium,Porcine 5,000 UNIT/ML VIAL 5000 UNIT SUBCUT (13:25)
--- NOTE | 2022-05-17 13:46 | MHC.CM.PN ---
PT REPORTS SHE LIVES WITH HER DAUGHTER WHO IS ALSO HER CONTACT CENTER REP PT DENIES USE OF DME PT IS LIANNE GARCIA WITH [employer] SHE IS INTERESTED IN COMPLETING A HCP, SHE WILL NAME HER SISTER KOTA SINCLAIR HER PRIMARY, AND HER DAUGHTER, FELICIANO IVY, HER ALTERNATE. PCP: MIKE DEUTSCH IMM DELIVERED CURRENT DC PLAN IS HOME WITH RESUMPTION OF CONTACT CENTER REP SERVICES DAUGHTER TO TRANSPORT
--- NOTE | 2022-05-17 17:37 | PM.DS ---
DS: Providers Provider Date of Service: 05/17/22 Date of admission: 05/15/22 22:44 Date of discharge: 05/17/22 Primary care physician: Dunia Guajardo MD Consults: 05/15/22 21:39 Consult to Gastroenterology Stat Consulting Provider: Ritesh Mullins Reason for consultation: colon ca Has provider been notified: Yes Consult to Hematology / Oncology Stat Consulting Provider: Piedad Robles Reason for consultation: colon ca Attending physician on discharge: Eddie Dotson Discharging clinician: Claudia Way DS: Diagnosis Discharge Diagnosis (1) Abnormal CT scan, colon: Status: Acute DS: Summary Hospital Course Hospital Course: From H&P on day of admission 61-year-old female with past medical history of anxiety depression, fibromyalgia, chronic back pain, presents to the hospital with complaints of right hip pain, denies any fall, no trauma, patient is also complaining of pain in the pelvic area, mostly in the suprapubic region.? Pain has now become 10/10, making it difficult for her to ambulate.? Pain is worse with walking.? She is also complaining of sharp epigastric pain, nonradiating.? Intermittent, no alleviating or exacerbating factors.? Patient reports 3 lb weight loss in the past 1 month unintentional. She reports constipation, denies any chest pain, no shortness of breath, reports urinary frequency.? No lower extremity edema.? No headache or change in vision.? On arrival to the ED patient hemodynamically stable no significant abnormal vitals Labs are significant for WBC count of 10.5, labs otherwise unremarkable UA is positive for leukocyte Estrace and WBC Abdomen pelvic CT shows finding suspicious for colonic neoplasm of the ascending colon with possible extension into the ascitic tap, MS rodolfo bets the liver service however evaluation of metastatic disease is limited due to noncontrast exam.? Abnormal lymph nodes and engorgement of the pericolonic vasculature at the site of the mass, enlarged nonspecific periportal lymph nodes. This case was discussed with GI as well as Hematology-Oncology and patient will be admitted for further management Abdominal Pain. Initial noncontrast CT showed concern for colonic neoplasm. She underwent repeat CT scan of the abdomen with IV contrast which showed possible mucosal thickening, colonic neoplasia not excluded, recommend further evaluation with colonoscopy.. Patient was seen by GI and had attempted colonoscopy on May 16 which was aborted due to poor prep. She had repeat colonoscopy on May 17 which did not reveal any evidence of colon mass. One polyp was removed, there was an area of patchy erythema which was thought to be secondary to resolving infectious colitis versus scope trauma. Random biopsies were obtained. The patient's abdominal pain resolved and she was tolerating a regular diet. She will be discharged home to follow up with PCP. GI office will call with results of biopsies. Can consider follow up scan to assess for resolution of lymphadenopathy. Time Spent with Patient Time attestation: Total time spent providing and/or coordinating discharge services: Discharge coordination time: Greater than 30 minutes Quality: Safe Use of Opioids Does Pt have an Active Cancer Diagnosis on the Problem List?: No Quality: Stroke Does the patient have a stroke diagnosis?: No Physical Exam Vital Signs: Vital Signs: Last Vital Signs Temp 98.2 F 05/17/22 15:20 Pulse 71 05/17/22 15:20 Resp 18 05/17/22 15:20 BP 154/73 H 05/17/22 15:20 Pulse Ox 97 05/17/22 15:20 O2 Del Method 05/17/22 15:20 BMI result Body Mass Index 33.0 Const: General: cooperative, comfortable, alert and awake Nutritional Appearance: overweight Orientation/consciousness: patient oriented x3 Resp: Effort & Inspection: normal respiratory effort and able to speak in complete sentences Auscultation: clear to auscultation bilaterally Cardio: Rate: regular rate Heart sounds: S1 normal heart sound present and S2 normal heart sound present GI: Inspection: No distended Palpation (GI): Soft to palpation and nontender Neuro: General: patient oriented x3 and CN's II-XI intact bilaterally Extrem: General: Yes no pedal edema DS: Data Data Completed and Pending Pending studies at discharge: Pending at discharge 05/17/22 10:54 Surgical [PTH] Routine Labs on day of discharge: Laboratory Results - last 24 hr 05/17/22 08:08 WBC 10.2 RBC 4.22 Hgb 12.4 Hct 37.1 MCV 87.9 MCH 29.4 MCHC 33.4 RDW 13.7 Plt Count 178 MPV 9.5 Absolute Nucleated RBC 0.000 Nucleated RBC % (auto) 0.0 Preliminary micro results at discharge 05/15/22 21:41 Blood Culture - Preliminary Blood - Venous No growth after [address] scan - abdomen: Radiologist's impression: ITS Impressions Abdomen/Pelvis CT 05/15/22 19:15 IMPRESSION: Findings are highly suspicious for a colonic neoplasm of the ascending colon with possible extension into the ileocecal valve. The mass abuts the liver surface, however evaluation of metastatic disease is limited in this noncontrast examination. Recommend consultation with GI oncologist. There are abnormal lymph nodes and engorgement of the pericolonic vasculature at the site of the mass, concerning for transmural extension. As above, this examination is not targeted for staging. There are enlarged nonspecific periportal lymph nodes. Hepatic steatosis. This critical result was discussed with Gomez RAMOS at 05/15/2022 7:47 PM and it was ascertained that the content and urgency of the report was understood at the time of direct communication. Abdomen/Pelvis CT 05/17/22 12:29 IMPRESSION: * The ascending colon is not optimally distended, and there is possible mucosal thickening in a segment of the ascending colon. The suspicion for mucosal disease in the ascending colon is elevated due to the findings of mild vascular congestion and mild lymphadenopathy in the adjacent mesentery. If not already performed, consider further evaluation with colonoscopy. Colonic neoplasia is not excluded on this test. * Diffuse hepatic steatosis. Consider correlation with liver function tests. A mildly enlarged lymph node of 1 cm short axis dimension in the periportal region could be reactive to liver disease. Discharge Plan Discharge Anticipated Discharge Date/Time: 05/17/22 17:31 Patient Disposition: Home, Self-Care Discharge Diagnosis: abnormal CT of abdomen UTI ruled out Referrals: Dunia Guajardo MD [Primary Care Provider] - 1 Week Discharge Medications: Continued calcium carbonate 600 mg calcium (1,500 mg) Tablet 600 mg PO DAILY vitamin B complex Tablet 1 tab PO DAILY cholecalciferol (vitamin D3) 25 mcg (1,000 unit) Tablet 25 mcg PO DAILY gabapentin 300 mg capsule 300 mg PO TID venlafaxine [Effexor XR] 150 mg capsule,extended release 24hr 150 mg PO DAILY naproxen sodium [Aleve] 220 mg tablet 220 mg PO Q12H PRN (Reason: Pain) trazodone 50 mg tablet 50 mg PO BEDTIME lorazepam 1 mg tablet 0.5 mg PO DAILY PRN (Reason: Anxiety) Discharge Orders: Discharge Order (Routine); Ordered 05/17/22 Ordered By: Claudia Way Diet: Advance to usual diet Activity on Discharge: As tolerated Stand Alone Forms: Patient Portal Discharge page Care Plan Goals: see below Health Concerns: abnormal CT scan of abdomen possible UTI Plan of Treatment: urinary tract infection ruled out abnormal CT - colonoscopy did not reveal evidence of colon mass. there was a polyp removed and some patchy erythema that was biopsied. The GI office will call with biopsy results and need for further workup based on biopsy results Call to schedule follow up with PCP Assessment: see discharge summary Discharge Date/Time: 05/17/22 18:25
--- NOTE | 2022-05-18 12:15 | HO.POSTANES ---
Post Anesthesia Evaluation Post Anesthesia Evaluation Anesthesia: Monitored and General Mental Status: Awake Pain Control: Satisfactory Nausea/Vomiting: None Hydration: Adequate Anesthesia-Related Issues: No Anes. Related Issues
[2022-05-19 14:18] LABS: Carbohydrate Antigen 19-9 16 U/mL (<34)
== END 2022-05-17 18:25 | disposition home or self-care (01) | DRG 392 ==
LOC: HO.ED 21:41 → HO.EDOVER 22:53 → HO.S3 05-16 00:55
PROVIDERS: Internal Medicine Gastroenterology; Nurse Practitioner Family; Physician Assistant; Admitting Provider Internal Medicine; Emergency Provider Emergency Medicine; PCP Internal Medicine; Visit Provider Physician Assistant Medical
PROC: 0DJD8ZZ Inspection of Lower Intestinal Tract, Via Natural or Artificial Opening Endoscopic (ICD-10-PCS; CPT 45378; principal; 2022-05-16 14:30)
DX: A09 Infectious gastroenteritis and colitis, unspecified (principal); M79.7 Fibromyalgia; G89.29 Other chronic pain; F41.9 Anxiety disorder, unspecified; F32.A Depression, unspecified; K57.30 Diverticulosis of large intestine without perforation or abscess without bleeding; K64.8 Other hemorrhoids; M54.9 Dorsalgia, unspecified; Z20.822 Contact with and (suspected) exposure to COVID-19; Z80.51 Family history of malignant neoplasm of kidney; Z59.02 Unsheltered homelessness; Z87.891 Personal history of nicotine dependence; Z56.0 Unemployment, unspecified; Z79.899 Other long term (current) drug therapy
CPT/HCPCS: 36415; 74176; 74177; 80048; 80053; 81001; 81003; 82378; 83605; 85025; 85027; 86301; 87040; 87086; 87147; 87205; 87635; 88305; 93005; 99285; J0696; J2270; J2405; J2765; Q9967

== ENCOUNTER 2022-05-22 18:09 | Emergency (ER) | payer MEDICARE, MEDICAID, SELFPAY ==
--- NOTE | ~2022-05-22 | CT_ITS ---
EXAMINATION: CT ABDOMEN AND PELVIS WITH CONTRAST CLINICAL INFORMATION: Right lower quadrant abdominal pain. History of appendectomy 1995 COMPARISON: CT abdomen pelvis 05/17/2022. TECHNIQUE: Multidetector volumetric images were obtained from the superior aspect of the liver through the pubic symphysis following administration 85 mL of Omnipaque 350 intravenous contrast. Sagittal and coronal reformatted images were obtained on the technologist's workstation. Oral contrast: No This CT examination was performed using dose optimization techniques as appropriate, variously including the following: *Automated exposure control *Adjustment of mA and/or kV according to patient size (this includes techniques or standardized protocols for targeted exams where dose is matched to indication/reason for exam; i.e. extremities or head) *Use of iterative reconstruction technique DLP: 605 mGy-cm FINDINGS: LUNG BASES: The visualized lung bases are unremarkable. LIVER, GALLBLADDER, AND BILIARY TREE: Diffuse low density of the liver suspicious for hepatic steatosis. Cholecystectomy clips are noted. PANCREAS: Unremarkable. SPLEEN: Unremarkable. ADRENAL GLANDS: Unremarkable. KIDNEYS AND URETERS: The kidneys are normal in size, shape, and attenuation. No hydronephrosis, hydroureter, or calculi seen. No perinephric stranding. BLADDER: Unremarkable. GASTROINTESTINAL TRACT: A cecal bascule is identified. A small number of scattered normal-sized mesenteric lymph nodes are present adjacent to the cecum. The appendix is not visualized. The area of concentric mural thickening suggested on the comparison study of 05/17/2022 within the ascending colon is collapsed on the current examination and demonstrates areas of mucosal thickening at the upper limits of expected normal. Specific assessment of this region is suboptimal secondary to collapse portions of the colon and high density intraluminal material which may represent retained contrast agent. The transverse colon is normal in appearance. The descending and sigmoid colon are collapsed and demonstrate wall thickness is up to 6 mm in width which is at the upper limits of normal size for collapsed bowel. No inflammatory changes of the sigmoid mesentery identified. No free intraperitoneal fluid or gas collections noted. ABDOMINAL WALL: Periumbilical hernia containing omental fat measuring 1 and diameter. LYMPH NODES: Normal. VASCULAR: Unremarkable. PELVIC VISCERA: Normal appearance of uterus. No adnexal lesions. OSSEOUS STRUCTURES: Mild multilevel chronic spondylosis of the thoracolumbar spine. Prominent Schmorl's node deformity of the superior endplate of L3. CT/CT abdomen pelvis w IV con IMPRESSION: *Borderline concentric mural thickening within the proximal ascending colon less pronounced than on the 05/17/2022 examination. Borderline mucosal thickening within the descending and sigmoid colon which is collapsed.Mildly prominent lymph nodes within normal limits of size are present adjacent to the cecum. Overall, findings could represent infectious colitis. The previous examination of 05/17/2022 indicated that neoplasm cannot be ruled out within the ascending colon. This examination does not definitively visualized neoplastic lesions of the colon though the cecum is decompressed and therefore this examination does not have definitive specificity in excluding neoplasm. The appendix is not visualized. History of appendectomy 1995. No free intraperitoneal fluid or gas collections. *Diffuse hepatic steatosis.
[2022-05-22 19:19] VITALS: BP 147/94; PULSE 101; RESP 20; TEMP 36.7; O2SAT 98; BMI 31.8
--- NOTE | 2022-05-22 19:21 | ED.ABDPAIN ---
HPI - Abdominal Pain General Chief Complaint: Abdominal Pain <Acacia Lowe NP - Last Filed: 05/22/22 19:25> Stated Complaint: Pelvis pain <Acacia Lowe NP - Last Filed: 05/22/22 19:25> Time Seen by Provider: 05/23/22 01:14 <Acacia Lowe NP - Last Filed: 05/22/22 19:25> Source: patient <Leon Mejia MD - Last Filed: 05/23/22 07:07> Mode of arrival: ambulatory <Leon Mejia MD - Last Filed: 05/23/22 07:07> Limitations: no limitations <Leon Mejia MD - Last Filed: 05/23/22 07:07> History of Present Illness HPI narrative: Patient been having pain in right lower quadrant radiating to the left lower abdomen for last 2 weeks was admitted here had colonoscopy which was negative CT scan showed mucosal thickening of ascending colon patient come back as pain is getting worse did not feel hungry for last 2 days slight nausea no vomiting has normal bowel no fever chills, no blood in stool, no urinary symptom <Leon Mejia MD - Last Filed: 05/23/22 07:07> Related Data Home Medications: Home Medications Medication Instructions Recorded Confirmed venlafaxine 150 mg 150 mg PO DAILY 06/01/20 05/15/22 capsule,extended release 24 hr (Effexor XR) naproxen sodium 220 mg tablet 220 mg PO Q12H PRN Pain 10/11/21 05/15/22 (Aleve) trazodone 50 mg tablet 50 mg PO BEDTIME 10/11/21 05/15/22 lorazepam 1 mg tablet 0.5 mg PO DAILY PRN Anxiety 04/10/22 05/15/22 calcium carbonate 600 mg calcium 600 mg PO DAILY 05/15/22 05/15/22 (1,500 mg) tablet cholecalciferol (vitamin D3) 25 25 mcg PO DAILY 05/15/22 05/15/22 mcg (1,000 unit) tablet gabapentin 300 mg capsule 300 mg PO TID 05/15/22 05/15/22 vitamin B complex 1 tab PO DAILY 05/15/22 05/15/22 Previous Rx's Medication Instructions Recorded ciprofloxacin HCl 500 mg tablet 500 mg PO BID #20 tabs 05/23/22 (Cipro) metronidazole 500 mg tablet 500 mg PO TID #30 tabs 05/23/22 tramadol 50 mg tablet 50 mg PO Q6H PRN pain #20 tabs 05/23/22 <Acacia Lowe NP - Last Filed: 05/22/22 19:25> Allergies/Adverse Reactions: Allergies Allergy/AdvReac Type Severity Reaction Status Date / Time No Known Allergies Allergy Verified 05/22/22 19:23 <Acacia Lowe NP - Last Filed: 05/22/22 19:25> Review of Systems Review of Systems Yes all other systems are reviewed and are negative <Leon Mejia MD - Last Filed: 05/23/22 07:07> [facility] Past Medical History Medical History: Medical History Anxiety Chronic back pain Depression Fibromyalgia Homeless <Acacia Lowe NP - Last Filed: 05/22/22 19:25> Surgical History: Surgical History Hx of appendectomy Hx of cholecystectomy <Acacia Lowe NP - Last Filed: 05/22/22 19:25> Family History Family History: Family History Mother Kidney cancer Father Medical history unknown Other Mental health disorder <Acacia Lowe NP - Last Filed: 05/22/22 19:25> Social History Social History: Social History Household Members: Children Household Members Other:: 1 Housing: Apartment Do you presently have visiting nurse or other home services: No Alcohol intake: never Patient Tobacco Use Status: Former Tobacco user Tobacco use type: Cigarette Smoked in Last 30 Days: No e-Cigarette/Vaping Use: Never Used Second Hand Smoke Exposure: No Use of substances other than those prescribed or required for medical reasons: No Advance Directives: No Advance Directives Information Provided: No Patient : No service: No Current occupational status: unemployed and disabled <Acacia Lowe NP - Last Filed: 05/22/22 19:25> Physical Exam ED Vital Signs: Vital Signs - 24 hr 05/22/22 19:19 05/23/22 01:17 05/23/22 05:00 Temperature 98.1 F 98.5 F 98.7 F Pulse Rate 101 H 87 81 Respiratory Rate 20 18 16 Blood Pressure 147/94 H 143/82 H 127/84 Pulse Oximetry 98 96 97 Oxygen Delivery Method Room Air Room Air Room Air BMI result Body Mass Index 31.8 <Acacia Lowe NP - Last Filed: 05/22/22 19:25> Vital Signs - 24 hr 05/22/22 19:19 05/23/22 01:17 05/23/22 05:00 Temperature 98.1 F 98.5 F 98.7 F Pulse Rate 101 H 87 81 Respiratory Rate 20 18 16 Blood Pressure 147/94 H 143/82 H 127/84 Pulse Oximetry 98 96 97 Oxygen Delivery Method Room Air Room Air Room Air BMI result Body Mass Index 31.8 <Leon Mejia MD - Last Filed: 05/23/22 07:07> Appearance: Alert. Oriented X3. No acute distress. Eyes: No pallor/icterus ENT: Pharynx normal. Oral Mucosa moist Neck: Normal inspection. Neck supple. CVS: Normal heart rate and rhythm. Pulses normal. Respiratory: No respiratory distress. Equal air entry bilateral, no wheezing/rales/rhonchi Abdomen: Soft tender right lower quadrant guarding or rebound tenderness Bowel sounds are present, no mass palpable, no CVA tenderness Skin: Skin warm and dry. Normal skin color. Normal skin turgor. Extremities: No lower extremity edema. No calf tenderness Neuro: Oriented X 3. No motor deficit. <Leon Mejia MD - Last Filed: 05/23/22 07:07> Course Course Course Narrative: This is a rapid medical exam. Deferred additional HPI, ROS, PE to primary provider. 61 Yo female with past medical history of anxiety depression, fibromyalgia, chronic back pain, recent admission for abnormal CT concerning for colon neoplasm 05/15-05/17 (colonoscopy x 2 during her admission-2nd one negative for malignancy, no source found for abdominal pain) here with complaints of continued right sided abdominal pain. Patient reports same pain as she had during last admission and it never improved with being in the hospital or even on discharge. Will check labs, UA. VSS <Acacia Lowe NP - Last Filed: 05/22/22 19:25> Medical Decision Making Medical Decision Making MDM Narrative: Patient is status post append[place] [address] scan showed mural thickening of proximal ascending colon with borderline thickening descending and sigmoid colon patient had once or twice loose bowel movements yesterday nothing today lab workup showed increased WBC count. Recent admission and evaluation done. 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 <Leon Mejia MD - Last Filed: 05/23/22 07:07> Medications Administered Discontinued Medications Generic Name Dose Route Start Last Admin Trade Name Freq PRN Reason Stop Dose Admin Sodium Chloride 1,000 mls @ 999 mls/hr 05/23/22 01:17 05/23/22 04:56 Ns IV 05/23/22 02:17 Infused .Q1H1M ONE Infusion Piperacillin Sod/Tazobactam 50 mls @ 100 mls/hr 05/23/22 01:17 05/23/22 02:38 Sod 3.375 gm/ Sodium Chloride IV 05/23/22 01:46 Infused ONCE ONE Infusion Iohexol 85 ml 05/23/22 02:08 05/23/22 02:09 Iohexol 350 Mg/Ml 100 Ml Infus..Btl IV 05/23/22 02:09 85 ml ONCE ONE Administration <Acacia Lowe NP - Last Filed: 05/22/22 19:25> Medications Administered Discontinued Medications Generic Name Dose Route Start Last Admin Trade Name Freq PRN Reason Stop Dose Admin Sodium Chloride 1,000 mls @ 999 mls/hr 05/23/22 01:17 05/23/22 04:56 Ns IV 05/23/22 02:17 Infused .Q1H1M ONE Infusion Piperacillin Sod/Tazobactam 50 mls @ 100 mls/hr 05/23/22 01:17 05/23/22 02:38 Sod 3.375 gm/ Sodium Chloride IV 05/23/22 01:46 Infused ONCE ONE Infusion Iohexol 85 ml 05/23/22 02:08 05/23/22 02:09 Iohexol 350 Mg/Ml 100 Ml Infus..Btl IV 05/23/22 02:09 85 ml ONCE ONE Administration <Leon Mejia MD - Last Filed: 05/23/22 07:07> Discharge Plan Discharge Clinical Impression: Colitis <Acacia Lowe NP - Last Filed: 05/22/22 19:25> Patient Disposition: Home, Self-Care <Acacia Lowe NP - Last Filed: 05/22/22 19:25> Instructions: Colitis (ED) <Acacia Lowe NP - Last Filed: 05/22/22 19:25> Additional Instructions: Drink plenty of fluids Pain medication as prescribed Antibiotic as prescribed 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 <Acacia Lowe NP - Last Filed: 05/22/22 19:25> Prescriptions: New ciprofloxacin HCl [Cipro] 500 mg tablet 500 mg PO BID Qty: 20 0RF metronidazole 500 mg tablet 500 mg PO TID Qty: 30 0RF tramadol 50 mg tablet 50 mg PO Q6H PRN (Reason: pain) Qty: 20 0RF No Action calcium carbonate 600 mg calcium (1,500 mg) Tablet 600 mg PO DAILY vitamin B complex Tablet 1 tab PO DAILY cholecalciferol (vitamin D3) 25 mcg (1,000 unit) Tablet 25 mcg PO DAILY gabapentin 300 mg capsule 300 mg PO TID venlafaxine [Effexor XR] 150 mg capsule,extended release 24hr 150 mg PO DAILY naproxen sodium [Aleve] 220 mg tablet 220 mg PO Q12H PRN (Reason: Pain) trazodone 50 mg tablet 50 mg PO BEDTIME lorazepam 1 mg tablet 0.5 mg PO DAILY PRN (Reason: Anxiety) <Acacia Lowe NP - Last Filed: 05/22/22 19:25> Interventions: ED Discharge Assessment Last Done: 05/23/22 05:04 <Acacia Lowe NP - Last Filed: 05/22/22 19:25> Discharge Date/Time: 05/23/22 05:05 <Acacia Lowe NP - Last Filed: 05/22/22 19:25>
[2022-05-22 19:38] LABS: MANUAL DIFF FLAG NO
[2022-05-22 19:39] LABS: Basophils Absolute Auto 0.1 X10*3/uL (0.0-0.2); Basophils Percent Auto 0.3 % (0-2); Eosinophils Absolute Auto 0.2 X10*3/uL (0.0-0.4); Hematocrit 40.5 % (37.0-47.0); Hemoglobin 13.6 g/dl (12.0-16.0); Imm Gran Abs Auto 0.09 X10*3/uL (0.00-0.03); Imm Gran Pct Auto 0.5 % (0.0-0.4); Lymphocytes Percent Auto 16.5 % (20-40); Mean Corpuscular HGB Conc 33.6 g/dl (31.0-35.0); Mean Corpuscular Hemoglobin 29.1 pg (27.0-33.0); Mean Corpuscular Volume 86.5 fL (80.0-98.0); Mean Platelet Volume 9.4 fL (9.4-12.3); Monocytes Absolute Auto 1.3 X10*3/uL (0.1-1.2); Monocytes Percent Auto 7.1 % (2-11); Neutrophils Absolute Auto 13.7 x10*3/uL (2.0-8.3); Neutrophils Percent Auto 74.6 % (45-73); Platelet Count 252 X10*3/uL (160-400); Red Blood Count 4.68 X10*6/uL (4.20-5.50); Red Cell Distribution Width 13.9 % (11.0-16.0); White Blood Count 18.3 X10*3/uL (4.8-10.8)
[2022-05-22 19:40] LABS: Appearance Urine Clear; Color Urine Yellow; Glucose Urine UA Negative (Negative); Leukocyte Esterase Urine Negative (Negative); Nitrite Urine Negative (Negative); PH 5.5 (5.0-9.0); Specific Gravity - Urine <= 1.005 (1.005-1.025); Urine Blood Negative (Negative); Urine Ketones Negative (Negative); Urine Protein Negative (Neg-Trace)
[2022-05-22 19:55] LABS: Alanine Aminotransferase 36 U/L (0-31); Albumin Level 4.3 g/dL (3.5-5.0); Alkaline Phosphatase 152 U/L (39-117); Anion Gap 12 (12-20); Aspartate Amino Transferase 24 U/L (5-31); Bilirubin Direct 0.2 mg/dL (0.0-0.5); Bilirubin Total 0.5 mg/dL (0.0-1.0); Blood Urea Nitrogen 8 mg/dL (9-16); Calcium 9.3 mg/dL (8.4-10.2); Carbon Dioxide 28 mmol/L (22-29); Chloride 103 mmol/L (96-108); Creatinine Clr Calc Pharmacy 73.6; Estimated Glomerular Filt Rate > 60; Glucose Random 93 mg/dL (60-115); Lipase 13 U/L (8-78); Potassium 3.8 mmol/L (3.3-5.1); Sodium 139 mmol/L (135-145); Total Protein 7.5 g/dL (6.5-8.0)
[2022-05-23 01:17] VITALS: BP 143/82; PULSE 87; RESP 18; TEMP 36.9; O2SAT 96
[2022-05-23] MEDS: 0.9 % Sodium Chloride 1,000 ML 999 ML IV (01:43)
[2022-05-23] MEDS: Piperacillin Sodium/Tazobactam 3.375 GM in 0.9 % Sodium Chloride 50 ML IV (01:43)
[2022-05-23 01:47] LABS: Lactic Acid 0.7 mmol/L (0.5-2.0)
[2022-05-23] MEDS: iohexoL 350 MG/ML 100 ML INFUS..BTL 85 ML IV (02:09)
[2022-05-23 05:00] VITALS: BP 127/84; PULSE 81; RESP 16; TEMP 37.1; O2SAT 97
== END 2022-05-23 05:05 | disposition home or self-care (01) ==
PROVIDERS: Nurse Practitioner Family; Emergency Provider Internal Medicine; PCP Internal Medicine
DX: K52.9 Noninfective gastroenteritis and colitis, unspecified (principal); R10.31 Right lower quadrant pain; R10.32 Left lower quadrant pain; Z87.891 Personal history of nicotine dependence; Z79.899 Other long term (current) drug therapy
CPT/HCPCS: 36415; 74177; 80048; 80076; 81003; 83605; 83690; 85025; 87040; 96361; 96374; 99284; J2543; Q9967

== ENCOUNTER → 2022-08-25 14:35 | Outpatient (BNVA) | payer OTHER, MEDICAID, SELFPAY | PROVIDERS: PCP Internal Medicine; Visit Provider Internal Medicine | DX: M54.51 Vertebrogenic low back pain (principal); M47.816 Spondylosis without myelopathy or radiculopathy, lumbar region; M53.3 Sacrococcygeal disorders, not elsewhere classified; M79.7 Fibromyalgia; M25.511 Pain in right shoulder; M75.22 Bicipital tendinitis, left shoulder | CPT/HCPCS: 99202 ==

== ENCOUNTER 2022-09-17 05:55 | Outpatient (REF) | payer OTHER, MEDICAID, SELFPAY ==
--- NOTE | ~2022-09-17 | FL_ITS ---
EXAMINATION: XR FL WITH IMAGES CLINICAL INFORMATION: Sacrococcygeal disorder. COMPARISON: None available. TECHNIQUE: Fluoroscopy Supervised By: Dr. Llanos Fluoroscopy Time: 0 minutes. Cumulative Dose: 2.3 mGy. DAP: 0.4 Gycm2. Images: 2. FINDINGS: Images demonstrate needle placement projecting over the mid right sacroiliac joint. FL/FL guidance in treatment room IMPRESSION: Fluoroscopy guidance for pain management procedure.
== END 2022-09-17 05:56 | disposition home or self-care (01) ==
LOC: CF 05:55
PROVIDERS: Visit Provider Internal Medicine
DX: M53.3 Sacrococcygeal disorders, not elsewhere classified (principal)
CPT/HCPCS: 27096; J1020; J1040; J2795; Q9965

== ENCOUNTER → 2022-11-07 11:01 | Outpatient (BNVA) | payer OTHER, MEDICAID, SELFPAY | PROVIDERS: PCP Internal Medicine; Visit Provider Internal Medicine | DX: M47.816 Spondylosis without myelopathy or radiculopathy, lumbar region (principal); M54.16 Radiculopathy, lumbar region | CPT/HCPCS: 99212 ==

== ENCOUNTER 2023-01-07 13:28 | Outpatient (AMB) | payer OTHER, SELFPAY ==
--- NOTE | 2023-01-07 13:34 | A.OFFVIS_ITS ---
Intake Vital Signs 01/07/23 13:37 Height 5 ft 2 in Weight 171 lb BMI 31.3 BP 104/60 Intake Visit Reasons: New paient Annual Intake Note: The patient agreed to use of a medical care administrator during this encounter. Scribed for JENNIFER Ortiz by Aleena Amanda medical care administrator, on 01/07/2023. Identification Clerk: Identification Clerk Present (Yvonne) Allergies No Known Allergies Allergy (Verified 01/07/23 13:37) HPI HPI Comments History of Present Illness Details She is a postmenopausal woman presenting for annual exam. Complains of occasional vaginal odor. She reports of a history of left breast skin cysts that she occasionally squeezes odorous material out of it. She has seen her PCP for this in the past and was not concerned per pt. Patient admits she tries to eat a healthy diet including Calcium and Vitamin D. She does not exercise due to her fibromyalgia. Denies vaginal itching and irritation. STD screening and blood work offered; she accepts. Denies family hx of breast, colon and ovarian cancer. Last pap smear 08/31/15. Last mammogram 01/09/22. UTD on colonoscopy. [facility], [facility] Medical History Abnormal Pap smear of cervix Anxiety Chronic back pain Depression Fibromyalgia Homeless Vaginal odor Surgical History Hx of appendectomy Hx of cholecystectomy Family History Mother Kidney cancer Father Medical history unknown Daughter FH: HTN (hypertension) Diabetes Other Mental health disorder Social History Household Members: Children Household Members Other:: 1 Housing: Apartment Do you presently have visiting nurse or other home services: No Alcohol intake: never Patient Tobacco Use Status: Former Tobacco user Tobacco use type: Cigarette e-Cigarette/Vaping Use: Never Used Second Hand Smoke Exposure: No service: No Current occupational status: unemployed and disabled Female Reproductive History Menstrual Total pregnancies: 2 Full term: 2 Number of Living Children: 2 Date of last pap smear: 08/31/15 (neg pap and hpv) History of abnormal pap smear: Yes (03/22 PAULINO 1 1008 colpo paulino 1 11/21 lgsil lsil 11/22 lgsil) Date of Mammogram: 01/09/22 Physical Exam Vital Signs: Last Vital Signs BP 104/60 01/07/23 13:37 BMI result Body Mass Index 31.3 Const General: cooperative, healthy appearing, no acute distress, well developed and alert Orientation/consciousness: patient oriented x3 HEENT Head: Yes normal to inspection Eyes General: appearance normal, both eyes and all related structures Neck Neck: Yes normal visual inspection Thyroid: Thyroid normal Chest Other: epidermal cyst; left breast region-apex 01:00 position, superficial, no drainage or erythema Chest palpation & inspection: normal inspection of the chest Breast/axilla inspection: normal inspection of the breasts (no puckering, dimpling, peau de orange, retraction, discharge, masses) Breast/axilla palpation: normal palpation of the breasts Resp Effort & Inspection: normal respiratory effort GI Inspection: Yes normal to inspection Palpation (GI): Soft to palpation (to palpation) Rectal Exam - Female: deferred General: Yes bladder normal to inspection External Female Exam: normal external appearance and normal appearance of the urethra Speculum Exam - Vagina: normal appearance of the vagina, normal palpation and vagina atrophic Speculum Exam - Cervix: normal appearance of the cervix, normal palpation and Other cervical findings present (bled slightly with pap) Bimanual exam- vagina & uterus: normal palpation and normal palpation Bimanual Exam- Adnexa, other: normal adnexae and no masses Skin General skin exam: no rashes or lesions noted Neuro General: patient oriented x3 Cognition (Neuro): normal cognition Extrem General: Yes normal to inspection Psych Attitude: cooperative Thought process: Normal thought process present Assessment & Plan Assessment & Plan (1) Vaginal odor: Code(s): N89.8 - Other specified noninflammatory disorders of vagina Plan: Discussed: Current recommendations for pap smears per ASCCP guidelines. Breast awareness and periodic self breast exams. Encouraged yearly mammograms. Maintaining a healthy lifestyle including a well balanced diet including Calcium and Vitamin D and routine exercise. Encouraged to use condoms for STD prevention. BV testing and GC/CT panel today. STD blood work ordered. Await results and treat accordingly. Contact office with any PMB. All of her questions and concerns were addressed to the best of my ability RTO in 1 year for AG. (2) Encounter for well woman exam: Code(s): Z01.419 - Encounter for gynecological examination (general) (routine) without abnormal findings (3) Cyst of skin of breast: Code(s): N60.89 - Other benign mammary dysplasias of unspecified breast Code(s): N60.89 - Other benign mammary dysplasias of unspecified breast Orders: Orders Bacterial Vaginosis Panel Today N89.8 - Other specified noninflammatory disorders of vagina CT NG by PCR Today N89.8 - Other specified noninflammatory disorders of vagina, Z20.2 - Contact with and (suspected) exposure to infections with a predominantly sexual mode of transmission Pap Smear Today Z01.419 - Encounter for gynecological examination (general) (routine) without abnormal findings Coding Level of Care Code New Pt Prev Care 40-64y(34673) Diagnoses Vaginal odor N89.8 Encounter for well woman exam Z01.419 Cyst of skin of breast N60.89
[2023-01-07 13:37] VITALS: BP 104/60; BMI 31.3
== END 2023-01-07 14:16 | disposition home or self-care (01) ==
LOC: HO.HWS 13:28
PROVIDERS: PCP Internal Medicine; Visit Provider Advanced Practice Midwife
DX: Z01.419 Encounter for gynecological examination (general) (routine) without abnormal findings (principal); N89.8 Other specified noninflammatory disorders of vagina; N60.89 Other benign mammary dysplasias of unspecified breast
CPT/HCPCS: 99386

== ENCOUNTER 2023-01-07 13:55 | Outpatient (REF) | payer OTHER, SELFPAY ==
[2023-01-08 14:54] LABS: BV Int Neg Control Negative (Negative); BV Int Pos Control Positive (Positive)
== END 2023-01-07 13:56 | disposition home or self-care (01) ==
LOC: HO.LAB 13:55
PROVIDERS: Visit Provider Advanced Practice Midwife
DX: N89.8 Other specified noninflammatory disorders of vagina (principal)
CPT/HCPCS: 87480; 87510; 87660

== ENCOUNTER 2023-01-07 13:55 | Outpatient (REF) | payer OTHER, SELFPAY ==
[2023-01-15 08:43] LABS: HPV 16 RNA NOT DETECTED (NOT DETECTED); HPV mRNA E6/E7 rflx Detected (Not Detected)
== END 2023-01-07 13:56 | disposition home or self-care (01) ==
LOC: HO.LNP 13:55
PROVIDERS: Visit Provider Advanced Practice Midwife
DX: Z01.419 Encounter for gynecological examination (general) (routine) without abnormal findings (principal); Z11.51 Encounter for screening for human papillomavirus (HPV)
CPT/HCPCS: 87624; 87625; 88142

== ENCOUNTER 2023-01-07 14:04 | Outpatient (REF) | payer OTHER, SELFPAY ==
[2023-01-08 01:46] LABS: CT PCR NOT DETECTED (Not Detect.); NG PCR NOT DETECTED (Not Detect.)
== END 2023-01-07 14:05 | disposition home or self-care (01) ==
LOC: HO.LAB 14:04
PROVIDERS: PCP Internal Medicine; Visit Provider Advanced Practice Midwife
DX: N89.8 Other specified noninflammatory disorders of vagina (principal); Z20.2 Contact with and (suspected) exposure to infections with a predominantly sexual mode of transmission
CPT/HCPCS: 0353U

== ENCOUNTER 2023-01-15 13:55 | Outpatient (REF) | payer OTHER, SELFPAY ==
--- NOTE | ~2023-01-15 | MM_ITS ---
EXAMINATION: MM SCREENING DIGITAL BREAST TOMOSYNTHESIS, BILATERAL CLINICAL INFORMATION: Screening. Asymptomatic. The lifetime risk of breast cancer based on the Tyrer-Cuzick Model is [id number].%. COMPARISON: Mammography: This study is compared with prior exams dating back to TECHNIQUE: Digital breast tomosynthesis is performed in both the craniocaudal and mediolateral oblique views along with computer-aided detection (CAD). Synthesized 2D images are generated from the tomosynthesis. FINDINGS: There are scattered areas of fibroglandular density (ACR BI-RADS breast composition Category b). There are no significant masses, abnormal calcifications, or other abnormalities. MM/MM tomosynthesis screening BI IMPRESSION: No mammographic evidence of malignancy. ASSESSMENT: BI-RADS BI-RADS 1 - Negative RECOMMENDATION: Routine annual mammography screening. 1 year F/U This examination should not preclude the clinical evaluation of a suspicious palpable abnormality. This patient's information was entered into a reminder system with a target due date for their next mammogram.
== END 2023-01-15 13:56 | disposition home or self-care (01) ==
LOC: HO.MAMMO 13:55
PROVIDERS: PCP Internal Medicine; Visit Provider Internal Medicine
DX: Z12.31 Encounter for screening mammogram for malignant neoplasm of breast (principal)
CPT/HCPCS: 77063; 77067

== ENCOUNTER → 2023-01-15 14:00 | Outpatient (BNV) | payer OTHER, SELFPAY | PROVIDERS: PCP Internal Medicine; Visit Provider Radiology Diagnostic Radiology | DX: Z12.31 Encounter for screening mammogram for malignant neoplasm of breast (principal) | CPT/HCPCS: 77063; 77067 ==

== ENCOUNTER 2023-01-16 14:23 | Outpatient (REF) | payer OTHER, SELFPAY ==
--- NOTE | ~2023-01-16 | XR_ITS ---
EXAMINATION: XR FOOT, RIGHT CLINICAL INFORMATION: Rheumatoid arthritis. COMPARISON: None available. TECHNIQUE: AP, lateral, and oblique views of the right foot. Patient is reportedly unable to remove third toe ring. FINDINGS: Plantar calcaneal spur. The bones and soft tissues otherwise appear unremarkable. No fracture appreciated. Alignment is anatomic. Joint spaces appear maintained. XR/XR foot RT min 3V IMPRESSION: Essentially unremarkable plain film examination of the right foot.
--- NOTE | ~2023-01-16 | XR_ITS ---
EXAMINATION: XR WRIST, RIGHT XR HAND, RIGHT CLINICAL INFORMATION: Rheumatoid arthritis. COMPARISON: None available. TECHNIQUE: PA, lateral, oblique, and scaphoid views of the right wrist and PA, lateral, and oblique views of the right hand FINDINGS: Examination RIGHT WRIST: The bones and soft tissues appear unremarkable. Bony mineralization appears preserved. No fracture identified. Alignment is anatomic. Joint spaces appear maintained. No erosions or soft tissue calcifications noted. RIGHT HAND: The bones and soft tissues appear unremarkable. Bony mineralization appears preserved. No fracture identified. Alignment is anatomic. Joint spaces appear maintained. No erosions or soft tissue calcifications noted. XR/XR hand wrist RT IMPRESSION: Unremarkable plain film examinations of the right hand and wrist.
--- NOTE | ~2023-01-16 | XR_ITS ---
EXAMINATION: XR FOOT, LEFT CLINICAL INFORMATION: Rheumatoid arthritis. COMPARISON: None available. TECHNIQUE: AP, lateral, and oblique views of the left foot. FINDINGS: Plantar calcaneal spur. The bones and soft tissues otherwise appear unremarkable. No fracture appreciated. Alignment is anatomic. Joint spaces appear maintained. XR/XR foot LT min 3V IMPRESSION: Essentially unremarkable plain film examination of the left foot.
--- NOTE | ~2023-01-16 | XR_ITS ---
EXAMINATION: XR WRIST, LEFT XR HAND, LEFT CLINICAL INFORMATION: Rheumatoid arthritis. COMPARISON: None available. TECHNIQUE: PA, lateral, oblique, and scaphoid views of the left wrist and PA, lateral, and oblique views of the left hand FINDINGS: Examination LEFT WRIST: The bones and soft tissues appear unremarkable. Bony mineralization appears preserved. No fracture identified. Alignment is anatomic. Joint spaces appear maintained. No erosions or soft tissue calcifications noted. LEFT HAND: The bones and soft tissues appear unremarkable. Bony mineralization appears preserved. No fracture identified. Alignment is anatomic. Joint spaces appear maintained. No erosions or soft tissue calcifications noted. XR/XR hand wrist LT IMPRESSION: Unremarkable plain film examinations of the left hand and wrist.
[2023-01-16 15:32] LABS: MANUAL DIFF FLAG NO
[2023-01-16 17:51] LABS: Basophils Percent Auto 0.3 % (0-2); Eosinophils Absolute Auto 0.1 X10*3/uL (0.0-0.4); Eosinophils Percent Auto 1.1 % (0-4); Hematocrit 41.8 % (37.0-47.0); Hemoglobin 13.4 g/dl (12.0-16.0); Imm Gran Abs Auto 0.05 X10*3/uL (0.00-0.03); Imm Gran Pct Auto 0.4 % (0.0-0.4); Lymphocytes Absolute Auto 1.9 X10*3/uL (1.2-4.9); Lymphocytes Percent Auto 14.8 % (20-40); Mean Corpuscular HGB Conc 32.1 g/dl (31.0-35.0); Mean Corpuscular Hemoglobin 28.7 pg (27.0-33.0); Mean Corpuscular Volume 89.5 fL (80.0-98.0); Mean Platelet Volume 10.2 fL (9.4-12.3); Monocytes Absolute Auto 0.9 X10*3/uL (0.1-1.2); Monocytes Percent Auto 6.9 % (2-11); Neutrophils Percent Auto 76.5 % (45-73); Platelet Count 247 X10*3/uL (160-400); Red Blood Count 4.67 X10*6/uL (4.20-5.50); Red Cell Distribution Width 13.8 % (11.0-16.0)
[2023-01-16 18:14] LABS: Alanine Aminotransferase 16 U/L (0-31); Alkaline Phosphatase 156 U/L (39-117); Anion Gap 14 (12-20); Aspartate Amino Transferase 18 U/L (5-31); Bilirubin Total 0.6 mg/dL (0.0-1.0); Blood Urea Nitrogen 15 mg/dL (9-16); C Reactive Protein 1.43 mg/dL (< or = 0.50); Calcium 9.5 mg/dL (8.4-10.2); Carbon Dioxide 25 mmol/L (22-29); Chloride 104 mmol/L (96-108); Estimated Glomerular Filt Rate > 60; Gamma Glutamyl Transpeptidase 22 U/L (7-33); Glucose Random 91 mg/dL (60-115); Potassium 4.1 mmol/L (3.3-5.1); Sodium 139 mmol/L (135-145); Total Protein 7.5 g/dL (6.5-8.0)
[2023-01-16 18:18] LABS: Rheumatoid Factor < 13.0 IU/mL (<15.0)
[2023-01-16 18:45] LABS: Erythrocyte Sedimentation Rate 19 MM/HR (0-20)
[2023-01-17 04:16] LABS: HBS Num1 53.12 mIU/mL (0-7.99); HBc Num1 0.16 S/CO (0.00-0.79); Hepatitis A Antibody IgM 0.29 Index (0-0.79); Hepatitis B Core Antibody Nonreactive (Nonreactive); Hepatitis B Surface Antigen Negative (Negative); ~HepC Num1 0.11 S/CO (0.00-0.79); ~Hepatitis A Antibody IgM Nonreactive (Nonreactive); ~Hepatitis B Surface Antibody REACTIVE (Nonreactive); ~Hepatitis C Antibody Nonreactive (Nonreactive)
[2023-01-20 14:14] LABS: Prot Elec - Albumin 3.9 g/dL (3.8-4.8); Prot Elec - Alpha1 0.3 g/dL (0.2-0.3); Prot Elec - Alpha2 0.7 g/dL (0.5-0.9); Prot Elec - Beta 1 0.5 g/dL (0.4-0.6); Prot Elec - Beta 2 0.5 g/dL (0.2-0.5); Prot Elec - Gamma 1.3 g/dL (0.8-1.7); Prot Elec - Total Protein 7.2 g/dL (6.1-8.1)
[2023-01-20 15:43] LABS: Cyclic Citrullinated Peptide <16 UNITS
[2023-01-22 10:34] LABS: Anti Nuclear Antibody Screen NEGATIVE (NEGATIVE)
[2023-01-22 12:43] LABS: IgA 409 mg/dL (47-310); IgG 1431 mg/dL (600-1640); IgM 157 mg/dL (50-300)
[2023-01-23 20:28] LABS: Alkaline Phosphatase Bone 28.8 mcg/L (5.6-29.0)
== END 2023-01-16 14:24 | disposition home or self-care (01) ==
LOC: HO.LAB 14:23
PROVIDERS: PCP Internal Medicine; Visit Provider Student in an Organized Health Care Education/Training Program
DX: Z11.59 Encounter for screening for other viral diseases (principal); M06.9 Rheumatoid arthritis, unspecified; R74.01 Elevation of levels of liver transaminase levels; M25.50 Pain in unspecified joint; G56.03 Carpal tunnel syndrome, bilateral upper limbs; Z72.89 Other problems related to lifestyle; M79.7 Fibromyalgia
CPT/HCPCS: 36415; 73110; 73130; 73630; 80053; 82784; 82977; 84075; 84165; 85025; 85652; 86038; 86140; 86200; 86334; 86431; 86704; 86706; 86709; 86803; 87340; 99212

== ENCOUNTER 2023-01-16 14:23 | Outpatient (AMB) | payer OTHER, MEDICAID, SELFPAY ==
[2023-01-16 14:24] VITALS: BP 102/72; PULSE 97; TEMP 36.6; O2SAT 97; BMI 31.3
--- NOTE | 2023-01-16 14:24 | A.OFFVIS_ITS ---
Intake Vital Signs 01/16/23 14:24 Height 5 ft 2 in Weight 171 lb 1.259 oz BMI 31.3 BP 102/72 Blood Pressure Location Rt brachial Position Sitting Pulse 97 Pulse Source Pulse Oximeter Temp 97.8 F Temp Source Skin Pulse Oximetry (%) 97 Intake Visit Reasons: Fibromyalgia Intake Note: Pt seen today for FM follow up. Sales Marketing Manager Required: No Accompanied by: Self / Same As Patient Allergies No Known Allergies Allergy (Verified 01/16/23 14:27) Medication List - Last Reconciled 01/16/23 by Brandon Moulton MD gabapentin 300 mg PO Q8H lamotrigine 25 mg PO BID lorazepam 0.5 mg PO DAILY PRN naproxen sodium (Aleve) 220 mg PO Q12H PRN trazodone 50 mg PO BEDTIME venlafaxine ER (Effexor XR) 150 mg PO DAILY venlafaxine ER 0 mg PO HPI HPI Comments History of Present Illness Details This is a 62-year-old female who presents for fibromyalgia follow-up. She was last seen by Jocelyn Dyer on 03/2022. Patient states that she continues to have pain in her neck, shoulders, hands, ankles, fingers. Is that the pain is intermittent. She had an SI joint injection by Pain Management which provided 1 week relief. She was then referred to do physical therapy for her L spine but patient stated that physical therapy never called her to schedule an appointment. [facility] Medical History (Updated 01/16/23 @ 17:29 by Brandon Moulton MD) Abnormal Pap smear of cervix Anxiety Chronic back pain Cyst of skin of breast Depression Fibromyalgia Homeless Vaginal odor Surgical History Hx of appendectomy Hx of cholecystectomy Family History Mother Kidney cancer Father Medical history unknown Daughter FH: HTN (hypertension) Diabetes Other Mental health disorder Social History Household Members: Children Household Members Other:: 1 Housing: Apartment Do you presently have visiting nurse or other home services: No Alcohol intake: never Patient Tobacco Use Status: Former Tobacco user Tobacco use type: Cigarette e-Cigarette/Vaping Use: Never Used Second Hand Smoke Exposure: No service: No Current occupational status: unemployed and disabled Female Reproductive History Menstrual Total pregnancies: 2 Full term: 2 Review of Systems Const Reports fatigue Musc Reports back pain, Reports arthralgias and Reports joint swelling Endo Reports fatigue Physical Exam Vital Signs: Last Vital Signs Temp 97.8 F 01/16/23 14:24 Pulse 97 01/16/23 14:24 BP 102/72 01/16/23 14:24 Pulse Ox 97 01/16/23 14:24 BMI result Body Mass Index 31.3 Const General: cooperative, healthy appearing and comfortable Nutritional Appearance: obese Orientation/consciousness: patient oriented x3 Limitations: no limitations HEENT Head: Yes normocephalic and Yes atraumatic Mouth: moist mucous membranes Resp Effort & Inspection: normal respiratory effort and able to speak in complete sentences Auscultation: clear to auscultation bilaterally Cardio Rate: regular rate Rhythm: regular rhythm Back/Spine/Pelvis Other: Negative Spurling's test bilaterally Neuro General: patient oriented x3 Extrem Other: Positive Tinel sign bilaterally Few tender PIP is bilaterally Bilateral wrist pain with full flexion and extension Bilateral positive empty can test, supraspinatus test and lift-off test Bilateral ankle tenderness without swelling. Multiple tender MTPs with negative MTP squeeze test Assessment & Plan Assessment & Plan (1) Polyarthralgia: Code(s): M25.50 - Pain in unspecified joint Plan: This is a 62-year-old female with fibromyalgia who presents for follow-up. She was last evaluated by Jocelyn Dyer 03/2022. Upon evaluation patient has multiple tender joints without swelling. Will order comprehensive serology to screen for underlying autoimmune rheumatic disease. Check x-rays of involved joints. Start prednisone therapeutic trial after blood work is completed (2) Bilateral carpal tunnel syndrome: Code(s): G56.03 - Carpal tunnel syndrome, bilateral upper limbs Plan: Positive Tinel sign bilaterally. Ordered an EMG. Start using bilateral wrist splint Plan I spent 46 minutes reviewing patient's chart, evaluating patient, ordering diagnostic workup, counseling patient and documenting in the chart Orders: Orders NE electromyogram (EMG) Today G56.03 - Carpal tunnel syndrome, bilateral upper limbs Complete Blood Count Auto Diff Today M06.9 - Rheumatoid arthritis, unspecified Comprehensive Met. Panel Today M06.9 - Rheumatoid arthritis, unspecified C Reactive Protein Today M06.9 - Rheumatoid arthritis, unspecified Hepatitis A,B,C Profile Today Z11.59 - Encounter for screening for other viral diseases Alkaline Phosphatase Bone Today M06.9 - Rheumatoid arthritis, unspecified Cyclic Citrullinated Peptide Today M06.9 - Rheumatoid arthritis, unspecified Rheumatoid Factor Today M06.9 - Rheumatoid arthritis, unspecified Erythrocyte Sedimentation Rate Today M06.9 - Rheumatoid arthritis, unspecified CLIVE Reflex Titer and Pattern Today M06.9 - Rheumatoid arthritis, unspecified Immunofixation Pnl, Serum Today M06.9 - Rheumatoid arthritis, unspecified Protein Electrophoresis, Serum Today M06.9 - Rheumatoid arthritis, unspecified XR foot LT min 3V Today M06.9 - Rheumatoid arthritis, unspecified XR foot RT min 3V Today M06.9 - Rheumatoid arthritis, unspecified XR hand wrist LT Today M06.9 - Rheumatoid arthritis, unspecified XR hand wrist RT Today M06.9 - Rheumatoid arthritis, unspecified Gamma Glutamyl Transpeptidase Today R74.01 - Elevation of levels of liver transaminase levels Medications: New [wrist splint] wear nightly and as much as possible throughout the day 2 ea 0RF G56.03 - Carpal tunnel syndrome, bilateral upper limbs prednisone Take 3 tabs by mouth once daily with breakfast for 1 week then 2 tabs daily for 1 week then 1 tab daily for 1 week then stop 42 tabs 0RF Coding Level of Care Code Est Pt Level 5 (12862) Diagnoses Polyarthralgia M25.50 Bilateral carpal tunnel syndrome G56.03
== END 2023-01-16 15:01 | disposition home or self-care (01) ==
PROVIDERS: PCP Internal Medicine; Visit Provider Student in an Organized Health Care Education/Training Program
DX: M79.7 Fibromyalgia (principal); M25.50 Pain in unspecified joint; G56.03 Carpal tunnel syndrome, bilateral upper limbs
CPT/HCPCS: 99215

== ENCOUNTER 2023-01-19 15:47 | Outpatient (AMB) | payer OTHER, SELFPAY ==
--- NOTE | 2023-01-19 16:02 | AM.OFFWIN_ITS ---
Intake Vital Signs 01/19/23 16:13 Height 5 ft 2 in BP 110/62 Blood Pressure Location Rt brachial Position Sitting Pulse 74 Pulse Source Pulse Oximeter Temp 97.3 F Temp Source Temporal Artery Scan Pulse Oximetry (%) 97 Oxygen Delivery Method Room Air Intake Visit Reasons: EST/uti Intake Note: Pt is here c/o possible UTI. Pt states she seen blood in her urine and has frequent urination. Patient Tobacco Use Status: Former Tobacco user Allergies No Known Allergies Allergy (Verified 01/19/23 16:37) Medication List - Last Reconciled 01/19/23 by Cheo Clement MD gabapentin 300 mg PO Q8H lamotrigine 25 mg PO BID lorazepam 0.5 mg PO DAILY PRN naproxen sodium (Aleve) 220 mg PO Q12H PRN prednisone Take 3 tabs by mouth once daily with breakfast for 1 week then 2 tabs daily for 1 week then 1 tab daily for 1 week then stop trazodone 50 mg PO BEDTIME venlafaxine ER (Effexor XR) 150 mg PO DAILY venlafaxine ER 0 mg PO [wrist splint wear nightly and as much as possible throughout the day] HPI EST/uti HPI Details Patient presents for a sick visit. Reports symptoms of increased frequency of urination, burning on urination and discomfort in the suprapubic area. Symptoms started in the past few days. No fevers or chills. No nausea or vomiting. [facility] Medical History (Updated 01/19/23 @ 16:38 by Cheo Clement MD) Abnormal Pap smear of cervix Anxiety Chronic back pain Cyst of skin of breast Depression Fibromyalgia Homeless Vaginal odor Surgical History Hx of appendectomy Hx of cholecystectomy Family History Mother Kidney cancer Father Medical history unknown Daughter FH: HTN (hypertension) Diabetes Other Mental health disorder Social History Household Members: Children Household Members Other:: 1 Housing: Apartment Do you presently have visiting nurse or other home services: No Alcohol intake: never Patient Tobacco Use Status: Former Tobacco user Tobacco use type: Cigarette e-Cigarette/Vaping Use: Never Used Second Hand Smoke Exposure: No service: No Current occupational status: unemployed and disabled Physical Exam Vital Signs: Last Vital Signs Temp 97.3 F 01/19/23 16:13 Pulse 74 01/19/23 16:13 BP 110/62 01/19/23 16:13 Pulse Ox 97 01/19/23 16:13 Oxygen Delivery Method Room Air 01/19/23 16:13 General: Yes bladder normal to palpation and Yes no CVA tenderness Bimanual exam- vagina & uterus: bladder normal to palpation Back/Spine/Pelvis Back: no CVA tenderness Results AMB Urinalysis, Automated UA Leukoctes 500 Barry/uL Last Edit by Jennifer Webb CMA on 01/19/23 16:03 UA Nitrite Negative Last Edit by Jennifer Webb CMA on 01/19/23 16:03 UA Urobilinogen 0.2 mg/dL Last Edit by Jennifer Webb CMA on 01/19/23 16:03 UA Protein 15 mg/dL Last Edit by Jennifer Webb CMA on 01/19/23 16:03 UA pH 6.0 Last Edit by Jennifer Webb CMA on 01/19/23 16:03 UA Blood 25 Noel/uL Last Edit by Jennifer Webb CMA on 01/19/23 16:03 UA Specific [place] 1.030 Last Edit by Jennifer Webb CMA on 01/19/23 16:0 3 UA Ketone Negative Last Edit by Jennifer Webb CMA on 01/19/23 16:03 UA Bilirubin 1 mg/dL Last Edit by Jennifer Webb CMA on 01/19/23 16:03 UA Glucose 0 mg/dL Last Edit by Jennifer Webb CMA on 01/19/23 16:03 Results Reviewed Results Reviewed: Laboratory Last Values Urine pH (Auto) 6.0 01/19/23 16:00 Specific [place] (Auto) 1.030 01/19/23 16:00 Urine Protein (Auto) 15 mg/dL 01/19/23 16:00 Glucose (UA)(Auto) 0 mg/dL 01/19/23 16:00 Urine Ketones (Auto) Negative 01/19/23 16:00 Urine Blood (Auto) 25 Noel/uL 01/19/23 16:00 Urine Nitrite (Auto) Negative 01/19/23 16:00 Urine Bilirubin (Auto) 1 mg/dL 01/19/23 16:00 Urine Urobilinogen (Auto) 0.2 mg/dL 01/19/23 16:00 Leukocyte Esterase (Auto) 500 Barry/uL 01/19/23 16:00 Assessment & Plan Assessment & Plan (1) Urinary tract infection: Code(s): N39.0 - Urinary tract infection, site not specified Plan: Patient reports she had seen bright red blood in the urine. Should this recur again, she should follow-up with the primary care for a possible cystoscopy. Take antibiotics and Pyridium as directed. Increase fluid intake. If symptoms of burning persist, new onset of fever or lower back pain, to follow-up at the clinic. Orders: Orders AMB Urinalysis Automated Today Z13.9 - Encounter for screening, unspecified Coding Level of Care Code Est Pt Level 3 (56727) Diagnoses Urinary tract infection N39.0
[2023-01-19 16:13] VITALS: BP 110/62; PULSE 74; TEMP 36.3; O2SAT 97
== END 2023-01-19 16:53 | disposition home or self-care (01) ==
PROVIDERS: PCP Internal Medicine; Visit Provider Internal Medicine
DX: N39.0 Urinary tract infection, site not specified (principal); R35.0 Frequency of micturition
CPT/HCPCS: 81003; 99213

== ENCOUNTER 2023-02-13 15:03 | Outpatient (REF) | payer OTHER, SELFPAY ==
--- NOTE | 2023-02-13 15:06 | EMG_ITS ---
Chief complaint: Bilateral hand numbness Reason for referral: Evaluate for Carpal Tunnel Syndrome Referred by: Dr. Moulton Procedure done: Bilateral upper extremities NCS/EMG Precautions and/or limitations: None The limb temperature was monitored continuously and remained between 32-36 degrees C during the performance of the NCS. Nerve Conduction Studies Anti Sensory Summary Table ?Stim Site NR Onset (ms) Norm Onset (ms) Peak (ms) Norm Peak (ms) O-P Amp (?V) Norm O-P Amp Site1 Site2 Delta-0 (ms) Dist (cm) Aman (m/s) Norm Aman (m/s) Left Median Anti Sensory (2nd Digit) Wrist ? 3.0 3.7 <3.6 5.3 >10 Wrist 2nd Digit 3.0 14.0 47 Right Median Anti Sensory (2nd Digit) Wrist ? 3.3 4.1 <3.6 11.0 >10 Wrist 2nd Digit 3.3 14.0 42 Right Radial Anti Sensory (Thumb) Forearm ? 1.6 1.9 <3.1 6.1 Forearm Thumb 1.6 0.0 Left Ulnar Anti Sensory (5th Digit) Wrist ? 2.4 3.3 <3.7 1.4 >15.0 Wrist 5th Digit 2.4 14.0 58 Right Ulnar Anti Sensory (5th Digit) Wrist ? 0.8 3.2 <3.7 15.2 >15.0 Wrist 5th Digit 0.8 14.0 175 Motor Summary Table ?Stim Site NR Onset (ms) Norm Onset (ms) O-P Amp (mV) Norm O-P Amp iAmp (mV) Amp (1st) (%) Site1 Site2 Delta-0 (ms) Dist (cm) Aamn (m/s) Norm Aman (m/s) Left Median Motor (Abd Poll Brev) Wrist ? 5.0 <3.9 5.0 >4.5 6.4 100.0 Elbow Wrist 3.8 20.0 53 >45 Elbow ? 8.8 4.7 6.1 94.0 Right Median Motor (Abd Poll Brev) Wrist ? 4.1 <3.9 8.2 >4.5 10.3 100.0 Elbow Wrist 3.6 20.0 56 >45 Elbow ? 7.7 7.5 9.4 91.5 Left Ulnar Motor Run (Abd Dig Minimi) Wrist ? 2.8 <3.0 2.7 >5 3.2 100.0 B Elbow Wrist 3.1 18.0 58 >45 B Elbow ? 5.9 1.9 2.6 70.4 A Elbow B Elbow 1.0 10.0 100 >45 A Elbow ? 6.9 2.2 2.8 81.5 Right Ulnar Motor (Abd Dig Minimi) Wrist ? 2.7 <3.0 6.9 >5 10.2 100.0 B Elbow Wrist 2.7 18.0 67 >45 B Elbow ? 5.4 6.4 9.4 92.8 A Elbow B Elbow 1.6 10.0 63 >45 A Elbow ? 7.0 6.3 9.0 91.3 EMG ?Side Muscle Nerve Root Ins Act Fibs Psw Amp Dur Poly Recrt Int Pat Comment Right 1stDorInt Ulnar C8-T1 Nml Nml Nml Nml Nml 0 Nml Complete Right FlexCarRad Median C6-7 Nml Nml Nml Nml Nml 0 Nml Complete Right Biceps Musculocut C5-6 Nml Nml Nml Nml Nml 0 Nml Complete Right Triceps Radial C6-7-8 Nml Nml Nml Nml Nml 0 Nml Complete Right Deltoid Axillary C5-6 Nml Nml Nml Nml Nml 0 Nml Complete Left 1stDorInt Ulnar C8-T1 Nml Nml Nml Nml Nml 0 Nml Complete Left FlexCarRad Median C6-7 Nml Nml Nml Nml Nml 0 Nml Complete Left Biceps Musculocut C5-6 Nml Nml Nml Nml Nml 0 Nml Complete Left Triceps Radial C6-7-8 Nml Nml Nml Nml Nml 0 Nml Complete Left Deltoid Axillary C5-6 Nml Nml Nml Nml Nml 0 Nml Complete Paraspinal EMG ?Side Muscle Nerve Root Ins Act Fibs Psw Comment Right Cervical Upper Rami Nml Nml Nml Right Cervical Mid Rami Nml Nml Nml Right Cervical Lower Rami Nml Nml Nml Left Cervical Upper Rami Nml Nml Nml Left Cervical Mid Rami Nml Nml Nml Left Cervical Lower Rami Nml Nml Nml FINDINGS: Bilateral median motor nerves showed prolonged distal latency, normal amplitude and normal conduction velocity. Left ulnar motor nerve showed normal distal latency, small amplitude and normal conduction velocity. Right median sensory nerve showed prolonged peak latency. Left median sensory nerve showed prolonged peak latency and small amplitude. Left ulnar sensory nerve showed normal peak latency but small amplitude. All other nerves tested were within normal. Concentric needle EMG was performed in selected muscles of the bilateral upper extremities and cervical paraspinal. Study did not reveal signs of electric abnormalities as shown in the table below. IMPRESSION: 1. This is delete an abnormal study. 2. There is electrodiagnostic evidence for bilateral moderate-severe median neuropathy at the wrist, consistent with Carpal Tunnel Syndrome.. 3. There is electrodiagnostic evidence suggestive for left ulnar neuropathy. 4. There is no electrodiagnostic evidence for brachial plexopathy, or cervical radiculopathy. CLINICAL COMMENT: Difficult to localize left ulnar neuropathy. There is no conduction block across the elbow. Further clinical correlation recommended. Thank you for your kind referral. Anali Manjarrez MD, MANPREET Board Certified, [place] [employer] and [employer] (ABPMR) Board Certified, [place] Board of Electrodiagnostic [employer] (ABEM) CODIN 34058 x2 MTDD
== END 2023-02-13 15:04 | disposition home or self-care (01) ==
LOC: HO.NEURO 15:03
PROVIDERS: PCP Internal Medicine; Visit Provider Student in an Organized Health Care Education/Training Program
DX: G56.03 Carpal tunnel syndrome, bilateral upper limbs (principal)
CPT/HCPCS: 95886; 95911

== ENCOUNTER → 2023-02-13 15:06 | Outpatient (BNV) | payer OTHER, SELFPAY | PROVIDERS: PCP Internal Medicine; Visit Provider Physical Medicine & Rehabilitation | DX: G56.03 Carpal tunnel syndrome, bilateral upper limbs (principal) | CPT/HCPCS: 95886; 95911 ==

== ENCOUNTER 2023-02-20 13:14 | Outpatient (AMB) | payer OTHER, SELFPAY ==
[2023-02-20 13:16] VITALS: BP 134/78; PULSE 88; O2SAT 98; BMI 31.5
--- NOTE | 2023-02-20 13:16 | MHC.PC.OV ---
Vital Signs 02/20/23 13:16 Height 5 ft 2 in Weight 172 lb 8 oz BMI 31.5 BP 134/78 Blood Pressure Location Rt brachial Position Sitting Pulse 88 Pulse Source Pulse Oximeter Pulse Oximetry (%) 98 Oxygen Delivery Method Room Air Intake Visit Reasons: Follow up Allergies No Known Allergies Allergy (Verified 02/20/23 13:16) Medication List - Last Reconciled 02/20/23 by Dunia Guajardo MD gabapentin 300 mg PO Q8H lamotrigine 25 mg PO BID lorazepam 0.5 mg PO DAILY PRN naproxen sodium (Aleve) 220 mg PO Q12H PRN trazodone 50 mg PO BEDTIME venlafaxine ER (Effexor XR) 150 mg PO DAILY venlafaxine ER 0 mg PO [wrist splint wear nightly and as much as possible throughout the day] Tobacco use date assessed: 02/20/23 Dental Screening Dental Screen Date: 02/20/23 Did you have a dental visit in the last 12 months?: Yes Did you have a dental problem in the last 6 months where you did not have access to dental care?: No Was dental information given to patient?: Patient has dentist HPI Follow up HPI Details Patient is 62-year-old female who was seen in walk-in clinic in January and found to have blood in her urine She was treated with antibiotic patient has no symptoms at this time But she wanted to have a urine test done to make sure there is no more blood. UA shows no blood however there is slight amount of leuk Estrace positive Since patient has no dysuria or frequency of urination we will do a urine culture and will treat if it came back positive otherwise she was instructed to drink plenty of water and if she becomes symptomatic she is to get back to me. She has no fever no back pain. [facility] Medical History Cyst of skin of breast Vaginal odor Abnormal Pap smear of cervix Chronic back pain Depression Anxiety Homeless Fibromyalgia Surgical History Hx of appendectomy Hx of cholecystectomy Family History Mother Kidney cancer Father Medical history unknown Daughter FH: HTN (hypertension) Diabetes Other Mental health disorder Social History Household Members: Children Household Members Other:: 1 Housing: Apartment Do you presently have visiting nurse or other home services: No Alcohol intake: never Patient Tobacco Use Status: Former Tobacco user Tobacco use type: Cigarette e-Cigarette/Vaping Use: Never Used Second Hand Smoke Exposure: No service: No Current occupational status: unemployed and disabled Cognitive needs: No Hearing needs: No Vision needs: Yes Questionnaire PHQ-9 Over the last 2 weeks, how often have you been bothered by any of the following problems? 1. Little interest or pleasure in doing things: more than half the days 2. Feeling down, depressed, or hopeless: more than half the days 3. Trouble falling or staying asleep, or sleeping too much: more than half the days 4. Feeling tired or having little energy: nearly every day 5. Poor appetite or overeating: not at all 6. Feeling bad about yourself - or that you are a failure or have let yourself or your family down: not at all 7. Trouble concentrating on things, such as reading the newspaper or watching television: nearly every day 8. Moving or speaking so slowly that other people could have noticed. Or the opposite - being so fidgety or restless that you have been moving around a lot more than usual: not at all 9. Thoughts that you would be better off or of hurting yourself in some way: not at all Total score: 12 Depression Screening Interpretation: Negative 39254 - PHQ-9 Billing: Yes Source: Developed by Drs. Brendon Garduno, Sara Zhao, Castro Cerrato and colleagues, with an educational nichol from [employer]. Thrive Questionnaire Date Thrive assessed: 02/20/23 I am a: Patient What is your living situation today?: I have a steady place to live Within the past 12 months, did the food you bought not last and you didn't have the money to get more?: Sometimes True Within the past 12 months, did you worry whether your food would run out before you got money to buy more?: Sometimes True Do you have trouble paying for medicines?: No Do you have trouble getting transportation to medical appointments?: No Do you have trouble paying your heating and electricity bill?: No Do you have trouble taking care of your child, family member or friend?: No Do you have trouble with day-to-day activities such as bathing, preparing meals, shopping, managing finances, etc.?: No Are you currently unemployed and looking for a job?: No Are you interested in more education?: No AUDIT C Alcohol Use Questionnaire (AUDIT-C) 1. How often do you have a drink containing alcohol?: Never 3. How often do you have six or more drinks on one occasion?: Never Total Score: 0 Score Reviewed/Action Taken: Yes TAY-7 AMB Questionnaire TAY-7 Date TAY - 7 assessed: 02/20/23 Feeling nervous, anxious, or on edge: 2 = More than half the days Not being able to stop or control worryin = Several days Worrying too much about different things: 1 = Several days Trouble relaxin = Nearly every day Being so restless that it is hard to sit still: 2 = More than half the days Becoming easily annoyed or irritable: 2 = More than half the days Feeling afraid as if something awful might happen: 3 = Nearly every day Total TAY-7 score (0-4 normal; 5-9 mild; 10-14 moderate; 15-21 severe): 14 Source: Developed by Drs. Brendon Garduno, Sara Zhao, Castro Cerrato and colleagues, with an educational nichol from [employer]. TAY-7 Assessment Billing TAY-7 Assessment Tool: TAY-7 Assessment 74980 Review of Systems Const All systems reviewed & are unremarkable except as noted in HPI and below Physical exam (Primary Care) Vital Signs: Last Vital Signs Pulse 88 02/20/23 13:16 BP 134/78 02/20/23 13:16 Pulse Ox 98 02/20/23 13:16 Oxygen Delivery Method Room Air 02/20/23 13:16 BMI result Body Mass Index 31.5 Tobacco/Smoking Status: Tobacco use Status Tobacco use date assessed 02/20/23 02/20/23 13:24 Patient Tobacco Use Status Former Tobacco user 02/20/23 13:16 Tobacco use type Cigarette 02/20/23 13:16 e-Cigarette/Vaping Use Never Used 02/20/23 13:16 PHQ-9: PHQ-9 Score PHQ-9: Total score 12 02/20/23 13:49 Depression Screening Interpretation: Negative Thrive Assessment: Date of Thrive Assessment Date Thrive assessed 02/20/23 02/20/23 13:49 Const General: no acute distress Orientation/consciousness: patient oriented x3 Eyes General: appearance normal, both eyes and all related structures Resp Effort & Inspection: normal respiratory effort and able to speak in complete sentences Auscultation: clear to auscultation bilaterally General: Yes no CVA tenderness Back/Spine/Pelvis Back: no CVA tenderness Neuro General: patient oriented x3 Psych Mental Status: mental status grossly normal Results AMB Urinalysis, Automated UA Leukoctes 70 Barry/uL Last Edit by Osmani Peacock [facility] on 02/20/23 13:48 UA Nitrite Negative Last Edit by Osmani Peacock [facility] on 02/20/23 13:48 UA Urobilinogen 0.2 mg/dL Last Edit by Osmani Peacock [facility] on 02/20/23 13:48 UA Protein 0 mg/dL Last Edit by Osmani Peacock [facility] on 02/20/23 13:48 UA pH 6.0 Last Edit by Osmani Peacock [facility] on 02/20/23 13:48 UA Blood 0 Noel/uL Last Edit by Osmani Peacock [facility] on 02/20/23 13:48 UA Specific [place] 1.025 Last Edit by Osmani Peacock [facility] on 02/20/23 13:48 UA Ketone Negative Last Edit by Osmani Peacock [facility] on 02/20/23 13:48 UA Bilirubin 1 mg/dL Last Edit by Osmani Peacock [facility] on 02/20/23 13:48 UA Glucose 0 mg/dL Last Edit by SarahAnali Peacock [facility] on 02/20/23 13:48 Results Reviewed Results Reviewed: Laboratory Last Values Urine pH (Auto) 6.0 02/20/23 13:46 Specific [place] (Auto) 1.025 02/20/23 13:46 Urine Protein (Auto) 0 mg/dL 02/20/23 13:46 Glucose (UA)(Auto) 0 mg/dL 02/20/23 13:46 Urine Ketones (Auto) Negative 02/20/23 13:46 Urine Blood (Auto) 0 Noel/uL 02/20/23 13:46 Urine Nitrite (Auto) Negative 02/20/23 13:46 Urine Bilirubin (Auto) 1 mg/dL 02/20/23 13:46 Urine Urobilinogen (Auto) 0.2 mg/dL 02/20/23 13:46 Leukocyte Esterase (Auto) 70 Barry/uL 02/20/23 13:46 Assessment and Plan Assessment & Plan (1) Abnormal urinalysis: Code(s): R82.90 - Unspecified abnormal findings in urine (2) History of blood in urine: Code(s): Z87.448 - Personal history of other diseases of urinary system (3) Major depression, recurrent: Code(s): F33.9 - Major depressive disorder, recurrent, unspecified Qualifiers: Active/Remission status: in partial remission Qualified Code(s): F33.41 - Major depressive disorder, recurrent, in partial remission Plan Patient is 62-year-old female who was seen in walk-in clinic in January and found to have blood in her urine She was treated with antibiotic patient has no symptoms at this time But she wanted to have a urine test done to make sure there is no more blood. UA shows no blood however there is slight amount of leuk Estrace positive Since patient has no dysuria or frequency of urination we will do a urine culture and will treat if it came back positive otherwise she was instructed to drink plenty of water and if she becomes symptomatic she is to get back to me. She has no fever no back pain. Patient continued to be depressed she is taking medication for depression and is seeing psych med provider Orders: Orders AMB Urinalysis Automated Today Z13.9 - Encounter for screening, unspecified Urine Culture Today N39.0 - Urinary tract infection, site not specified Coding Level of Care Code Est Pt Level 3 (66761) Diagnoses Abnormal urinalysis R82.90 History of blood in urine Z87.448 Recurrent major depressive disorder, in partial remission F33.41 Active/Remission status: in partial remission Additional Codes TAY-7 Assessment Billing - TAY-7 Assessment Tool: TAY-7 Assessment 72952 ([id number])
== END 2023-02-20 15:52 | disposition home or self-care (01) ==
PROVIDERS: PCP Internal Medicine; Visit Provider Internal Medicine
DX: R82.90 Unspecified abnormal findings in urine (principal); Z87.448 Personal history of other diseases of urinary system; F33.41 Major depressive disorder, recurrent, in partial remission
CPT/HCPCS: 81003; 99213

== ENCOUNTER 2023-02-20 14:02 | Outpatient (REF) | payer OTHER, SELFPAY | END 2023-02-20 14:03 | disposition home or self-care (01) | LOC: HO.LAB 14:02 | PROVIDERS: Visit Provider Internal Medicine | DX: N39.0 Urinary tract infection, site not specified (principal) | CPT/HCPCS: 87086 ==

== ENCOUNTER 2023-03-26 14:48 | Outpatient (AMB) | payer OTHER, SELFPAY ==
--- NOTE | 2023-03-26 14:52 | A.OFFVIS_ITS ---
Intake Vital Signs 03/26/23 14:53 Height 5 ft 2 in Weight 171 lb 15.369 oz BMI 31.4 BP 122/68 Blood Pressure Location Rt brachial Position Sitting Pulse 96 Pulse Source Pulse Oximeter Temp 98.0 F Temp Source Skin Pulse Oximetry (%) 97 Intake Visit Reasons: FMS Intake Note: Pt seen today for follow up and test results. C/o left shoulder pain for approx a month. Manager Private Required: No Accompanied by: Self / Same As Patient Allergies No Known Allergies Allergy (Verified 03/26/23 14:55) HPI HPI Comments History of Present Illness Details Patient returns for follow-up after completion of her diagnostic workup. She took prednisone taper as prescribed. She feels that prednisone taper helped the pain in her hands and feet as well as the numbness of her fingers. She continues to have bilateral shoulder pain, worse on the left. She misplaced her wrist splint script. Initial history: This is a 62-year-old female who presents for fibromyalgia follow-up. She was last seen by Jocelyn Dyer on 03/2022. Patient states that she continues to have pain in her neck, shoulders, hands, ankles, fingers. Is that the pain is intermittent. She had an SI joint injection by Pain Management which provided 1 week relief. She was then referred to do physical therapy for her L spine but patient stated that physical therapy never called her to schedule an appointment. [facility] Medical History Cyst of skin of breast Vaginal odor Abnormal Pap smear of cervix Chronic back pain Depression Anxiety Homeless Fibromyalgia Surgical History Hx of appendectomy Hx of cholecystectomy Family History Mother Kidney cancer Father Medical history unknown Daughter FH: HTN (hypertension) Diabetes Other Mental health disorder Social History Household Members: Children Household Members Other:: 1 Housing: Apartment Do you presently have visiting nurse or other home services: No Alcohol intake: never Patient Tobacco Use Status: Former Tobacco user Tobacco use type: Cigarette e-Cigarette/Vaping Use: Never Used Second Hand Smoke Exposure: No service: No Current occupational status: unemployed and disabled Cognitive needs: No Hearing needs: No Vision needs: Yes Review of Systems Musc Reports arthralgias, Reports joint swelling and Reports numbness Neuro Reports numbness Physical Exam Vital Signs: Last Vital Signs Temp 98.0 F 03/26/23 14:53 Pulse 96 03/26/23 14:53 BP 122/68 03/26/23 14:53 Pulse Ox 97 03/26/23 14:53 BMI result Body Mass Index 31.4 Const General: cooperative, healthy appearing and comfortable Nutritional Appearance: obese Orientation/consciousness: patient oriented x3 Limitations: no limitations HEENT Head: Yes normocephalic and Yes atraumatic Mouth: moist mucous membranes Resp Effort & Inspection: normal respiratory effort and able to speak in complete sentences Auscultation: clear to auscultation bilaterally Cardio Rate: regular rate Rhythm: regular rhythm Back/Spine/Pelvis Other: Negative Spurling's test bilaterally Neuro General: patient oriented x3 Extrem Other: Positive Tinel sign on the left No swollen or tender PIP is or the IP is bilaterally No wrist tenderness, swelling, warmth or pain with flexion and extension Bilateral positive empty can test No ankle tenderness or swelling today bilaterally Negative MTP tenderness bilaterally Negative MTP squeeze test bilaterally Assessment & Plan Assessment & Plan (1) Polyarthralgia: Code(s): M25.50 - Pain in unspecified joint Plan: This is a 62-year-old female who presents for evaluation of polyarthralgia. Labs showed mildly elevated inflammatory markers with negative serology. Tender joints in her hands and feet resolve with prednisone taper. She has no active synovitis today. Will continue to monitor patient. If she develops recurrent inflammatory arthritis she might need a DMARD for seronegative arthritis (2) Bilateral carpal tunnel syndrome: Code(s): G56.03 - Carpal tunnel syndrome, bilateral upper limbs Plan: Start using bilateral wrist splints. Referred patient to hand surgeon (3) Tendinitis of both rotator cuffs: Code(s): M75.81 - Other shoulder lesions, right shoulder; M75.82 - Other shoulder lesions, left shoulder Plan: Referred to PT Plan I spent 26 minutes reviewing patient's chart, evaluating patient, placing orders, counseling patient and documenting in the chart Orders: Orders PT Evaluation and Treatment Today M75.81 - Other shoulder lesions, right shoulder, M75.82 - Other shoulder lesions, left shoulder Referrals Hand Surgery Referral G56.03 - Carpal tunnel syndrome, bilateral upper limbs Medications: Refilled 2 [wrist splint] wear nightly and as much as possible throughout the day 2 ea 0RF G56.03 - Carpal tunnel syndrome, bilateral upper limbs Coding Level of Care Code Est Pt Level 4 (05321) Diagnoses Polyarthralgia M25.50 Bilateral carpal tunnel syndrome G56.03 Tendinitis of both rotator cuffs M75.81; M75.82
[2023-03-26 14:53] VITALS: BP 122/68; PULSE 96; TEMP 36.7; O2SAT 97; BMI 31.4
== END 2023-03-26 15:26 | disposition home or self-care (01) ==
PROVIDERS: PCP Internal Medicine; Visit Provider Student in an Organized Health Care Education/Training Program
DX: M25.50 Pain in unspecified joint (principal); G56.03 Carpal tunnel syndrome, bilateral upper limbs; M75.81 Other shoulder lesions, right shoulder; M75.82 Other shoulder lesions, left shoulder
CPT/HCPCS: 99214

== ENCOUNTER → 2023-03-26 14:48 | Outpatient (BNVA) | payer OTHER, MEDICAID, SELFPAY | PROVIDERS: PCP Internal Medicine; Visit Provider Student in an Organized Health Care Education/Training Program | DX: M25.50 Pain in unspecified joint (principal); G56.03 Carpal tunnel syndrome, bilateral upper limbs; M75.81 Other shoulder lesions, right shoulder; M75.82 Other shoulder lesions, left shoulder | CPT/HCPCS: 99212 ==

== ENCOUNTER 2023-04-15 11:04 | Outpatient (AMB) | payer OTHER, SELFPAY ==
[2023-04-15 11:05] VITALS: BP 130/82; PULSE 76; O2SAT 98; BMI 32.0
--- NOTE | 2023-04-15 11:05 | A.OFFPC_ITS ---
Vital Signs 04/15/23 11:05 Height 5 ft 2 in Weight 175 lb BMI 32.0 BP 130/82 Blood Pressure Location Rt brachial Position Sitting Pulse 76 Pulse Source Pulse Oximeter Pulse Oximetry (%) 98 Oxygen Delivery Method Room Air Intake Visit Reasons: AWV Allergies No Known Allergies Allergy (Verified 04/15/23 11:05) Medication List - Last Reconciled 04/15/23 by Dunia Guajardo MD gabapentin 300 mg PO Q8H lamotrigine 25 mg PO BID lorazepam 0.5 mg PO DAILY PRN naproxen sodium (Aleve) 220 mg PO Q12H PRN trazodone 50 mg PO BEDTIME venlafaxine ER (Effexor XR) 150 mg PO DAILY venlafaxine ER 0 mg PO [wrist splint wear nightly and as much as possible throughout the day] Tobacco use date assessed: 04/15/23 Dental Screening Dental Screen Date: 04/15/23 Did you have a dental visit in the last 12 months?: Yes Did you have a dental problem in the last 6 months where you did not have access to dental care?: No Was dental information given to patient?: Patient has dentist HPI AWV HPI Details Patient is 62-year-old female came in today for physical examination Patient has fibromyalgia and is currently seeing wood patternmaker She is also seeing our psych med prescriber for depression and anxiety She is taking no medication from this office Mammogram is up-to-date Pap smear is up-to-date BMI is elevated at 32.0 need to lose weight. She had extensive labs done through Rheumatology, reviewed with the patient [facility] Medical History Cyst of skin of breast Vaginal odor Abnormal Pap smear of cervix Chronic back pain Depression Anxiety Homeless Fibromyalgia Surgical History Hx of appendectomy Hx of cholecystectomy Family History Mother Kidney cancer Father Medical history unknown Daughter FH: HTN (hypertension) Diabetes Other Mental health disorder Social History Household Members: Children Household Members Other:: 1 Housing: Apartment Do you presently have visiting nurse or other home services: No Alcohol intake: never Patient Tobacco Use Status: Former Tobacco user Tobacco use type: Cigarette e-Cigarette/Vaping Use: Never Used Second Hand Smoke Exposure: No service: No Current occupational status: unemployed and disabled Cognitive needs: No Hearing needs: No Vision needs: Yes Questionnaire PHQ-9 Over the last 2 weeks, how often have you been bothered by any of the following problems? 1. Little interest or pleasure in doing things: not at all 2. Feeling down, depressed, or hopeless: not at all 3. Trouble falling or staying asleep, or sleeping too much: nearly every day 4. Feeling tired or having little energy: several days 5. Poor appetite or overeating: not at all 6. Feeling bad about yourself - or that you are a failure or have let yourself or your family down: not at all 7. Trouble concentrating on things, such as reading the newspaper or watching television: several days 8. Moving or speaking so slowly that other people could have noticed. Or the opposite - being so fidgety or restless that you have been moving around a lot more than usual: not at all 9. Thoughts that you would be better off or of hurting yourself in some way: not at all Total score: 5 Depression Screening Interpretation: Negative Depression Screening Done: Yes 19006 - PHQ-9 Billing: Yes Source: Developed by Drs. Brendon Garduno, Castro Bridges and colleagues, with an educational nichol from [employer]. Thrive Questionnaire Date Thrive assessed: 02/20/23 AUDIT C Alcohol Use Questionnaire (AUDIT-C) 1. How often do you have a drink containing alcohol?: Never 3. How often do you have six or more drinks on one occasion?: Never Total Score: 0 Score Reviewed/Action Taken: Yes TAY-7 AMB Questionnaire TAY-7 Date TAY - 7 assessed: 02/20/23 Source: Developed by Drs. Brendon Garduno, Castro Bridges and colleagues, with an educational nichol from [employer]. Review of Systems Const Denies chills and Denies fever(s) Eyes Denies blurry vision ENT Denies nasal discharge, Denies nasal obstruction, Denies odynophagia and Denies sinus pain Card Denies chest pain at rest and Denies chest pain with activity Resp Denies cough and Denies hemoptysis GI Denies diarrhea, Denies odynophagia, Denies vomiting and Denies hematemesis Reports as per HPI Musc Denies abnormal gait Skin/Breast Reports as per HPI Neuro Denies Neuro-related abnormal movements, Denies Abnormal speech present, Denies abnormal gait and Denies Sensory deficit (Neuro) Psych Denies mood swings and Denies paranoia Endo Reports as per HPI Reuben/Lymph Reports as per HPI Aller/Immun Reports as per HPI Physical exam (Primary Care) Vital Signs: Last Vital Signs Pulse 76 04/15/23 11:05 BP 130/82 04/15/23 11:05 Pulse Ox 98 04/15/23 11:05 Oxygen Delivery Method Room Air 04/15/23 11:05 BMI result Body Mass Index 32.0 Tobacco/Smoking Status: Tobacco use Status Tobacco use date assessed 04/15/23 04/15/23 11:06 Patient Tobacco Use Status Former Tobacco user 04/15/23 11:06 Tobacco use type Cigarette 04/15/23 11:06 e-Cigarette/Vaping Use Never Used 04/15/23 11:06 PHQ-9: PHQ-9 Score PHQ-9: Total score 5 04/15/23 11:32 Depression Screening Interpretation: Negative Thrive Assessment: Date of Thrive Assessment Date Thrive assessed 02/20/23 04/15/23 11:06 Const General: cooperative, comfortable and no acute distress Orientation/consciousness: patient oriented x3 HENMT Head: Yes normocephalic and Yes atraumatic Eyes General: appearance normal, both eyes and all related structures Pupils: Equal, round and reactive pupils present EOM: EOMs intact bilaterally Neck Neck: Yes supple and No lymphadenopathy Thyroid: Thyroid normal Lymphatic: no lymphadenopathy noted Resp Effort & Inspection: normal respiratory effort and able to speak in complete sentences Auscultation: clear to auscultation bilaterally Cardio Heart sounds: S1 normal heart sound present and S2 normal heart sound present GI Palpation (GI): Soft to palpation and nontender Auscultation: normal bowel sounds General: Yes no CVA tenderness Back/Spine/Pelvis Back: no CVA tenderness Skin General skin exam: elasticity normal and turgor normal Neuro General: patient oriented x3 and gait normal Cranial nerves: Yes Equal, round and reactive pupils present Speech: No Abnormal speech present Sensory Exam: No Sensory deficit (Neuro) Coordination: tandem gait normal and Romberg test negative Extrem General: Yes normal exam except as noted and No edema Office Procedures Flu Questionnaire Does the patient have a severe egg allergy?: No Does the patient have severe life threatening allergies?: No Does the patient have a fever or illness today?: No Has the patient ever had Guillain-Fowler Syndrome?: No Has the patient ever had any past reaction to a flu shot?: No Immunizations flu vacc [id number] 6mos up(PF) 60 mcg(15 mcgx4)/0.5 mL IM syringe Performing Provider: Dunia Guajardo MD Performing Location: [facility] Administered by: Claudia West CMA on 04/15/23 11:32 Dose Route Admin Location Dispensed Lot Number Expiration Date NDC Assistant Business Manager 0.5 mL IM Right Deltoid 0.5 mL [id number] 12/13/23 52670-151-41 Language Systems VIS Given Date VIS Provided VIS Publication Date 04/15/23 Single Vaccine 21 Eligibility Eligibility Date Funding Source Not [facility] Eligible 04/15/23 Private Assessment and Plan Assessment & Plan (1) Encounter for general adult medical examination with abnormal findings: Code(s): Z00.01 - Encounter for general adult medical examination with abnormal findings (2) Major depression, recurrent: Code(s): F33.9 - Major depressive disorder, recurrent, unspecified Qualifiers: Active/Remission status: in partial remission Qualified Code(s): F33.41 - Major depressive disorder, recurrent, in partial remission (3) Fibromyalgia: Code(s): M79.7 - Fibromyalgia (4) Polyarthralgia: Code(s): M25.50 - Pain in unspecified joint (5) Chronic vertigo: Code(s): R42 - Dizziness and giddiness Plan Patient is 62-year-old female came in today for physical examination Patient has fibromyalgia and is currently seeing wood patternmaker She is also seeing our psych med prescriber for depression and anxiety She is taking no medication from this office She does have chronic vertigo off and on Mammogram is up-to-date Pap smear is up-to-date BMI is elevated at 32.0 need to lose weight. She had extensive labs done through Rheumatology, reviewed with the patient Orders: Orders Influenza [id number] Immunization Today Z23 - Encounter for immunization Coding Level of Care Code Est Pt Prev Care 40-64y(30721) Diagnoses Encounter for general adult medical examination with abnormal findings Z00.01 Recurrent major depressive disorder, in partial remission F33.41 Active/Remission status: in partial remission Fibromyalgia M79.7 Polyarthralgia M25.50 Chronic vertigo R42
== END 2023-04-15 11:36 | disposition home or self-care (01) ==
PROVIDERS: PCP Internal Medicine; Visit Provider Internal Medicine
DX: Z00.00 Encounter for general adult medical examination without abnormal findings (principal); F33.41 Major depressive disorder, recurrent, in partial remission; M79.7 Fibromyalgia; M25.50 Pain in unspecified joint; R42 Dizziness and giddiness; Z23 Encounter for immunization
CPT/HCPCS: 90471; 90686; 99396

== ENCOUNTER 2023-04-22 13:42 | Outpatient (REF) | payer OTHER, SELFPAY | END 2023-04-22 13:43 | disposition home or self-care (01) | LOC: HO.LNP 13:42 | PROVIDERS: PCP Internal Medicine; Visit Provider Obstetrics & Gynecology | DX: R87.610 Atypical squamous cells of undetermined significance on cytologic smear of cervix (ASC-US) (principal); R87.810 Cervical high risk human papillomavirus (HPV) DNA test positive | CPT/HCPCS: 57454; 88305 ==

== ENCOUNTER 2023-04-22 13:42 | Outpatient (AMB) | payer OTHER, SELFPAY ==
--- NOTE | 2023-04-22 13:45 | MHC.OFFVIS ---
Intake Vital Signs 04/22/23 13:49 Height 5 ft 2 in Weight 175 lb BMI 32.0 BP 120/80 Intake Visit Reasons: Colposcopy/DO NOT RS Cna Instructor Required: No Information Interpreted: non-clinical & clinical Sas Developer Analyst: Sas Developer Analyst Present (Agatha) Allergies No Known Allergies Allergy (Verified 04/22/23 13:49) Is last menstrual period known: No Post menopausal: Yes Patient : No PFSH Medical History Cyst of skin of breast Vaginal odor Abnormal Pap smear of cervix Chronic back pain Depression Anxiety Homeless Fibromyalgia Surgical History Hx of appendectomy Hx of cholecystectomy Family History Mother Kidney cancer Father Medical history unknown Daughter FH: HTN (hypertension) Diabetes Other Mental health disorder Social History Household Members: Children Household Members Other:: 1 Housing: Apartment Do you presently have visiting nurse or other home services: No Alcohol intake: never Patient Tobacco Use Status: Former Tobacco user Tobacco use type: Cigarette e-Cigarette/Vaping Use: Never Used Second Hand Smoke Exposure: No Patient : No service: No Current occupational status: unemployed and disabled Cognitive needs: No Hearing needs: No Vision needs: Yes Female Reproductive History Menstrual control method: none Date of last pap smear: 01/08/23 (ASCUS +HPV) Physical Exam Vital Signs: Last Vital Signs BP 120/80 04/22/23 13:49 BMI result Body Mass Index 32.0 Office Procedures Colposcopy Before the procedure was started discussed with the patient the procedure, alternatives & all the risks associated with the procedure (bleeding, infection, injury to vagina, bladder, vessels, possible need for transfusion with all its risks) then patient signed the consent Pap smear = ascus/HPV positive/HPV 18/14 positive Speculum inserted, acetic acid Colposcopy done Transformation zone seen, acetowhite lesions identified at 7+6+1 o?clock, cervical biopsies taken from 7+6+1 o?clock, ECC done afterwards. Vaginoscopy of the upper vagina showed no evidence of any aceto-white lesions Monsel solution used for hemostasis. The patient tolerated well . At the end the patient was instructed to call if temp>100.4, abdominal pain, n/v, bleeding; The patient was given the following instructions: nothing per vagina, no intercourse or bath tub use. All questions answered the patient verbalized understanding. Instructed the patient to make an appointment in 2 weeks for follow-up This note was generated with a voice recognition program. Some errors may have been overlooked during the review of this note. Sometimes these errors may affect the content or meaning of a given sentence. [id number] of cervix including upper vagina with biopsy and ECC Procedure code (CPT) selection complete Assessment & Plan Assessment & Plan (1) ASCUS with positive high risk HPV cervical: Code(s): R87.610 - Atypical squamous cells of undetermined significance on cytologic smear of cervix (ASC-US); R87.810 - Cervical high risk human papillomavirus (HPV) DNA test positive Orders: Orders AMB Colposcopy Today R87.610 - Atypical squamous cells of undetermined significance on cytologic smear of cervix (ASC-US), R87.810 - Cervical high risk human papillomavirus (HPV) DNA test positive Coding Level of Care Code Procedure Only Diagnoses ASCUS with positive high risk HPV cervical R87.610; R87.810 CPT Codes Colposcopy - CPT: 34915-Uowltcjxh of cervix including upper vagina with biopsy and ECC ([id number])
[2023-04-22 13:49] VITALS: BP 120/80; BMI 32.0
== END 2023-04-22 14:23 | disposition home or self-care (01) ==
PROVIDERS: PCP Internal Medicine; Visit Provider Obstetrics & Gynecology
DX: R87.610 Atypical squamous cells of undetermined significance on cytologic smear of cervix (ASC-US) (principal); R87.810 Cervical high risk human papillomavirus (HPV) DNA test positive
CPT/HCPCS: 57454

== ENCOUNTER 2023-04-29 13:00 | Outpatient (RCR) | payer OTHER, SELFPAY ==
--- NOTE | 2023-04-06 14:57 | MHC.PT.EP ---
[facility] [place] [facility] [place] [facility] [place] [facility] [address] Sasha Angulo [address] [phone] F: [phone] F: [phone] F: [phone] F: [phone] Physical Therapy Plan of Care Date of Evaluation: 04/06/23 Date of Surgery: Diagnosis: This is a 62 yo female presenting to skilled PT with a script for tendonitis of B shoulders. Assessment: Patient states that she has had pain in her neck, shoulders, hands, ankles, fingers (polyarthralgia) for some time now. She is here today for her shoulders however and reports ongoing L shoulder pain for a few months now. Her pain is constant and pain appears to have an insidious onset other than the fact that she reports daily pains due to PMHx. Pain is located at the L anterior GHJ, into bicep muscles and the posterior arm/deltoid as well. Pain is described as sharp. Pain is aggravated with reaching behind and OH but also increases with functional ADLs, housework and sleeping (when on the L). She has seen rheumatology and pain management were she has had injections and rounds of prednisone for her polyrhuemagia. Assessment reveals pain that ranges from up to a 9/10 at the worst. Patient demos decreased B shoulder and cervical ROM, strength of B shoulder's, TTP at shoulder surrounding soft tissues, GHJ joint line anteriorly, UT's and posterior deltoid and demos impaired posture with forward head and rounded shoulders. Based on functional limitations, impaired QOL and pain tolerance patient is a good candidate for skilled PT 2x/wk for 5wks. Frequency and Duration: The patient will be seen 2x/wk for 5wks Short Term Goals: (In 2 weeks) Demo I with HEP Improve shoulder AROM by at least 10 degs Demo proper scapular recruitment with appropriate shoulder strengthening exercises Care Home Goals: (in 5 wks) Improve shoulder nonpainful AROM to almost near equal B Demo at least 1 grade improvement in MMT for shoulder Improve SPADI by at least 10 points Improve overall functional QOL by at least 50% Treatment Plan: Modalities to reduce pain, spasms and effusion. Manual therapy to restore motion and function. Therapeutic exercise to improve strength and flexibility. Neuromuscular re-education for posture and balance. Therapeutic activities to return to functional activities of daily living. Electronically signed by: Yenni Ontiveros PT Please sign and return to therapist. Thank you for your referral.
--- NOTE | 2023-05-29 07:08 | MHC.PT.DC ---
[facility] [place] Office [place] [facility] [place] [facility] [address] Sasha Angulo [address] [phone] F: [phone] F: [phone] F: [phone] F: [phone] Physical Therapy Discharge Report Diagnosis: This is a 62 yo female presenting to skilled PT with a script for tendonitis of B shoulders. Date of Surgery: Date of Evaluation: 04/06/23 Date of Discharge: 05/29/23 Treatments to Date: 5 Cancellations to Date: 0 No Shows to Date: 0 Discharge Status: Achieved Goals Improved Function Independent with HEP Patient Elected to Stop Discharge Summary: Patient improved pain, ROM and function. She had met her STG's and was feeling I in her HEP. At her last PT appointment she was educated on 5 available appointments to use if she wanted. Her chart was closed after 30 days when she did not return for further tx. DC to HEP. Electronically signed by: Yenni Ontiveros PT Please sign and return to therapist. Thank you for your referral.
== END 2023-05-29 07:08 | disposition home or self-care (01) ==
LOC: HO.PTCHIC 13:00
PROVIDERS: PCP Internal Medicine; Visit Provider Student in an Organized Health Care Education/Training Program
DX: M75.81 Other shoulder lesions, right shoulder (principal); M75.82 Other shoulder lesions, left shoulder
CPT/HCPCS: 97110; 97140; 97162

== ENCOUNTER 2023-05-12 09:28 | Outpatient (AMB) | payer OTHER, SELFPAY ==
--- NOTE | 2023-05-12 09:34 | MHC.OFFVIS ---
Intake Vital Signs 05/12/23 09:36 Height 5 ft 2 in Weight 174 lb 2.643 oz BMI 31.9 BP 110/62 Intake Visit Reasons: Colpo follow up Adjunct Physical Education Instructor Required: No Information Interpreted: non-clinical & clinical Accompanied by: Daughter Allergies No Known Allergies Allergy (Verified 05/12/23 09:36) Post menopausal: Yes HPI HPI Comments History of Present Illness Details Presenting post colpo for follow-up. The patient is doing well with no complaints. The pathology showed the following: A. Endocervix, curettage: Squamous epithelium with reactive changes and scant endocervical glandular epithelium; negative for dysplasia. B. Cervix, 1:00, biopsy: Squamous mucosa; negative for dysplasia; no endocervical glandular epithelium present. C. Cervix, 6:00, biopsy: Squamous mucosa with reactive changes; negative for dysplasia; no endocervical glandular epithelium present. D. Cervix, 7:00, biopsy: Squamous mucosa with focal atypia suspicious for low-grade squamous intraepithelial lesion (mild dysplasia, PAULINO 1); no endocervical glandular epithelium present PFSH Medical History Cyst of skin of breast Vaginal odor Abnormal Pap smear of cervix Chronic back pain Depression Anxiety Homeless Fibromyalgia Surgical History Hx of appendectomy Hx of cholecystectomy Family History Mother Kidney cancer Father Medical history unknown Daughter FH: HTN (hypertension) Diabetes Other Mental health disorder Household Members: Children Household Members Other:: 1 Housing: Apartment Do you presently have visiting nurse or other home services: No Alcohol intake: never Patient Tobacco Use Status: Former Tobacco user Tobacco use type: Cigarette e-Cigarette/Vaping Use: Never Used Second Hand Smoke Exposure: No service: No Current occupational status: unemployed and disabled Cognitive needs: No Hearing needs: No Vision needs: Yes Review of Systems Const All systems reviewed & are unremarkable except as noted in HPI and below Reports as per HPI and Reports no additional complaints GI Reports no additional complaints Reports no additional complaints Physical Exam Vital Signs: Last Vital Signs BP 110/62 05/12/23 09:36 BMI result Body Mass Index 31.9 Assessment & Plan Assessment & Plan (1) Dysplasia of cervix, low grade (PAULINO 1): Code(s): N87.0 - Mild cervical dysplasia Plan: Discussed with the patient the pathology results of the colposcopy biopsies & endocervical curettage ( mild dysplasia-PAULINO 1). Discussed with the patient the sensitivity specificity, positive and negative predictive value in detecting cervical cancer in addition discussed the regression, persistence and progression rates. Recommended co-testing in 12 months, if cytology and or HPV are abnormal will proceed was colposcopy biopsy and endocervical curettage, if lesions gets worse or stays persistent for 2 years will proceed with loop electric excision procedure. Instructions given to the patient to schedule a co test appointment in 1 year. All questions answered the patient verbalized understanding. Coding Level of Care Code Est Pt Level 3 (14158) Diagnoses Dysplasia of cervix, low grade (PAULINO 1) N87.0
[2023-05-12 09:36] VITALS: BP 110/62; BMI 31.9
== END 2023-05-12 11:25 | disposition home or self-care (01) ==
LOC: HO.HWS 09:28
PROVIDERS: PCP Internal Medicine; Visit Provider Obstetrics & Gynecology
DX: N87.0 Mild cervical dysplasia (principal)
CPT/HCPCS: 99213

== ENCOUNTER → 2023-05-12 09:28 | Outpatient (BNVA) | payer OTHER, SELFPAY | PROVIDERS: PCP Internal Medicine; Visit Provider Obstetrics & Gynecology | DX: N87.0 Mild cervical dysplasia (principal) | CPT/HCPCS: 99212 ==

== ENCOUNTER 2023-08-21 11:02 | Outpatient (AMB) | payer OTHER, SELFPAY ==
[2023-08-21 11:15] VITALS: BP 133/77; PULSE 89; RESP 12; O2SAT 97; BMI 31.6
--- NOTE | 2023-08-21 11:15 | MHC.OFFVIS ---
Intake Vital Signs 08/21/23 11:15 Height 5 ft 2 in Weight 173 lb BMI 31.6 BP 133/77 Blood Pressure Location Lt brachial Position Sitting Respiration 12 Pulse 89 Pulse Source Pulse Oximeter Pulse Oximetry (%) 97 Oxygen Delivery Method Room Air Intake Visit Reasons: Back pain Allergies No Known Allergies Allergy (Verified 08/21/23 11:16) Medication List - Last Reconciled 08/21/23 by Kelsey Jeronimo LPN lamotrigine 25 mg PO BID lorazepam 0.5 mg PO DAILY PRN trazodone 50 mg PO BEDTIME venlafaxine ER (Effexor XR) 150 mg PO DAILY venlafaxine ER 0 mg PO [wrist splint wear nightly and as much as possible throughout the day] HPI Back pain HPI Details 62-year-old female who presents today to the office for low back pain. She did physical therapy for her shoulder. She has a limited range of motion and has noticed crunching sensations in her arm. She has not had an MRI scan in the past. She has been doing home exercises for back pain. She completed formal physical therapy for the back about three years ago. She also reports neck pain. She reports severe back pain and leg pain that is precipitated by movement. She has difficulty walking. She has not had a cortisone injection in the past. Past procedure: 09/17/22: Sacroiliac Joint Injection, right: 30-40% relief for 1 week PFS Medical History Cyst of skin of breast Vaginal odor Abnormal Pap smear of cervix Chronic back pain Depression Anxiety Homeless Fibromyalgia Surgical History Hx of appendectomy Hx of cholecystectomy Family History Mother Kidney cancer Father Medical history unknown Daughter FH: HTN (hypertension) Diabetes Other Mental health disorder Social History Household Members: Children Household Members Other:: 1 Housing: Apartment Do you presently have visiting nurse or other home services: No Alcohol intake: never Patient Tobacco Use Status: Former Tobacco user Tobacco use type: Cigarette e-Cigarette/Vaping Use: Never Used Second Hand Smoke Exposure: No service: No Current occupational status: unemployed and disabled Cognitive needs: No Hearing needs: No Vision needs: Yes Review of Systems Const All systems reviewed & are unremarkable except as noted in HPI and below Physical Exam Vital Signs: Last Vital Signs Pulse 89 08/21/23 11:15 Resp 12 08/21/23 11:15 BP 133/77 08/21/23 11:15 Pulse Ox 97 08/21/23 11:15 Oxygen Delivery Method Room Air 08/21/23 11:15 BMI result Body Mass Index 31.6 General: Appears afebrile. Alert and oriented. Mood and affect appropriate. Follows and participates in conversation appropriately. Respiratory effort is unlabored. Able to transition from sit to stand unassisted. Ambulates with bilaterally normal heel strike and toe off. Results Reviewed Results Reviewed: No imaging is available for review. Assessment & Plan Assessment & Plan (1) Asymptomatic menopausal state: Code(s): Z78.0 - Asymptomatic menopausal state (2) Lumbar radicular pain: Code(s): M54.16 - Radiculopathy, lumbar region (3) Vertebrogenic low back pain: Comment: Schmorl's node L3 superior endplate Code(s): M54.51 - Vertebrogenic low back pain Plan I ordered an MRI scan of the lumbar spine for further evaluation of her radicular symptoms as well as vertebral endplate degeneration as a possible cause of axial low back pain that is worse with motion. I also ordered a DEXA scan. I encouraged the patient to continue doing the stretching and strengthening exercises at home. The patient will follow-up for the review of the result. Scribed for Dr. Llanos by Jay Storm, rn medical inpatient services, on 08/21/2023. I, Dr. Llanos, have personally reviewed and agree with the information entered by the scribe. Orders: Orders XR DEXA axial skeleton 08/21/23 Z78.0 - Asymptomatic menopausal state MR lumbar spine wo con 08/21/23 M54.16 - Radiculopathy, lumbar region, M54.51 - Vertebrogenic low back pain Coding Level of Care Code Est Pt Level 4 (85169) Diagnoses Asymptomatic menopausal state Z78.0 Lumbar radicular pain M54.16 Vertebrogenic low back pain M54.51
== END 2023-08-21 11:31 | disposition home or self-care (01) ==
PROVIDERS: PCP Internal Medicine; Visit Provider Internal Medicine
DX: Z78.0 Asymptomatic menopausal state (principal); M54.16 Radiculopathy, lumbar region; M54.51 Vertebrogenic low back pain
CPT/HCPCS: 99213

== ENCOUNTER → 2023-08-21 11:02 | Outpatient (BNVA) | payer OTHER, SELFPAY | PROVIDERS: PCP Internal Medicine; Visit Provider Internal Medicine | DX: Z78.0 Asymptomatic menopausal state (principal); M54.16 Radiculopathy, lumbar region; M54.51 Vertebrogenic low back pain | CPT/HCPCS: 99212 ==

== ENCOUNTER 2023-09-08 13:53 | Outpatient (REF) | payer OTHER, SELFPAY ==
--- NOTE | ~2023-09-08 | MM_ITS ---
EXAMINATION: BONE DENSITOMETRY CLINICAL INDICATION: Asymptomatic menopausal state. COMPARISON: This is the patient's baseline examination. TECHNIQUE: Using a [employer] DXA System (software version: 13.1) manufactured by [employer], dual-energy x-ray absorptiometry was performed of the lumbar spine and left hip. The images are of good technical quality. Summary results are attached. FINDINGS: LEFT FEMUR, NECK: BMD 0.956 g/cm2, Z-score 0.4, T-score -0.6, . LEFT FEMUR, TOTAL: BMD 1.054 g/cm2, Z-score 1.0, T-score 0.4, normal. AP SPINE L1-L2 (excluding L3 and L4): The data of L1-L4 has been changed to exclude the L3 and L4 vertebral bodies, because degenerative sclerosis at these levels may cause overestimation of lumbar spine density. BMD 1.044 g/cm2, Z-score -0.2, T-score -1.0, normal. IDENTIFIED RISK FACTORS: Family history (parent hip fracture), menopause. HISTORY OF FRACTURE: None listed. MEDICATIONS: Calcium, vitamin D. MM/XR DEXA axial skeleton IMPRESSION: 1. DIAGNOSIS: Normal bone density based on the lowest T-score value of -1.0 in the lumbar spine applying World Health Organization criteria. 2. 10-YEAR FRACTURE RISK PREDICTION, FRAX: According to the guidelines, FRAX calculation should only be performed on patients in the osteopenia bone density category. Therefore, FRAX was not performed on this patient. 3. Treatment Recommendations: NOF guidelines recommend consideration for treatment in postmenopausal women and men age 50 and older presenting with the following: -A hip or vertebral (clinical or morphometric) fracture. -T-score less than or equal to -2.5 at the femoral neck or spine after appropriate evaluation to exclude secondary causes. -Low bone mass at the hip or spine and a 10-year fracture probability by FRAX of greater than or equal to 3% for hip fracture or greater than or equal to 20% for major osteoporotic fracture based on the [place] adapted WHO algorithm. 4. Other Recommendations: All treatment decisions require clinical judgment and consideration of individual patient factors, including patient preferences, comorbidities, previous drug use, risk factors not captured in the FRAX model (e.g. frailty, falls, vitamin D deficiency, increased bone turnover, interval significant decline in bone density) and possible under or overestimation of fracture risk by FRAX. FUTURE SCAN RECOMMENDATION: People with diagnosed cases of osteoporosis or at high risk for fracture should have regular bone mineral density tests. For patients eligible for Medicare, routine testing is allowed once every 2 years. The testing frequency can be increased to one year for patients who have rapidly progressing disease, those who are receiving or discontinuing medical therapy to restore bone mass, or have additional risk factors.
== END 2023-09-08 13:54 | disposition home or self-care (01) ==
LOC: HO.MAMMO 13:53
PROVIDERS: PCP Internal Medicine; Visit Provider Internal Medicine
DX: Z13.820 Encounter for screening for osteoporosis (principal); Z78.0 Asymptomatic menopausal state
CPT/HCPCS: 77080

== ENCOUNTER 2023-09-23 18:17 | Outpatient (REF) | payer OTHER, SELFPAY ==
--- NOTE | ~2023-09-23 | MR_ITS ---
EXAMINATION: MR LUMBAR SPINE WITHOUT CONTRAST CLINICAL INFORMATION: Radiculopathy, lumbar region COMPARISON: None available. TECHNIQUE: MRI of the lumbar spine was obtained using routine sequences without contrast. FINDINGS: Motion artifact is present. Minimal levocurvature at the thoracolumbar junction and mild testicle vasculature of the lumbar spine. Mild retrolisthesis at L5-S1. No acute bone marrow abnormality. The vertebral body heights are preserved. Multilevel disc desiccation with mild disc height loss at L4-L5. Acute reactive endplate changes at L5-S1. Multilevel endplate osteophytosis. The visualized spinal cord is normal in caliber. No abnormal cord signal. The conus medullaris terminates at T12-L1. T12-L1: No significant spinal canal or neural foraminal narrowing. L1-L2: Bilateral facet arthrosis. No significant spinal canal or neural foraminal narrowing. L2-L3: Diffuse disc bulge and bilateral facet arthrosis. No significant spinal canal stenosis. Mild left neural foraminal narrowing. L3-L4: Small left foraminal disc protrusion, ligamentum flavum hypertrophy, and bilateral facet arthrosis. No significant spinal canal or neural foraminal narrowing. L4-L5: Diffuse disc bulge, ligamentum flavum hypertrophy, and bilateral facet arthrosis. Moderate to severe spinal canal stenosis with mass effect on the cauda equina nerve roots. Mild to moderate left neural foraminal narrowing with the disc abutting the left exiting L4 nerve roots. L5-S1: Diffuse disc bulge, ligamentum flavum hypertrophy, and bilateral facet arthrosis. Mild to moderate spinal canal stenosis. Mild bilateral neural foraminal narrowing with the disc abutting the exiting L5 nerve roots bilaterally. The paravertebral soft tissues are unremarkable. MR/MR lumbar spine wo con IMPRESSION: Within the limitations of this study, -Multilevel lumbar spondylosis as described above with moderate to severe spinal canal stenosis at L4-L5 and mild to moderate spinal canal stenosis at L5-S1. -Multilevel neural foraminal narrowing is worst and mild to moderate at L4-L5 on the left. At L4-L5 and L5-S1, disc bulges abut the exiting left L4 and bilateral L5 nerve roots.
== END 2023-09-23 18:18 | disposition home or self-care (01) ==
LOC: HO.MRI 18:17
PROVIDERS: PCP Internal Medicine; Visit Provider Internal Medicine
DX: M54.16 Radiculopathy, lumbar region (principal); M54.51 Vertebrogenic low back pain
CPT/HCPCS: 72148

== ENCOUNTER 2023-09-24 13:41 | Outpatient (AMB) | payer OTHER, SELFPAY ==
[2023-09-24 13:43] VITALS: BP 118/72; PULSE 98; O2SAT 99; BMI 31.3
--- NOTE | 2023-09-24 13:43 | A.OFFVIS_ITS ---
Intake Vital Signs 09/24/23 13:43 Height 5 ft 2 in Weight 171 lb 4.787 oz BMI 31.3 BP 118/72 Blood Pressure Location Rt brachial Position Sitting Pulse 98 Pulse Source Pulse Oximeter Pulse Oximetry (%) 99 Oxygen Delivery Method Room Air Intake Visit Reasons: FMS Intake Note: Patient last seen 03/26/23 presents today for follow up and test results. Bl ankle pain; out of gabapentin Psychiatric Secretary Required: No Accompanied by: Self / Same As Patient Allergies No Known Allergies Allergy (Verified 09/24/23 13:52) Medication List - Last Reconciled 09/24/23 by Brandon Moulton MD lamotrigine 25 mg PO BID lorazepam 0.5 mg PO DAILY PRN trazodone 50 mg PO BEDTIME venlafaxine ER (Effexor XR) 150 mg PO DAILY venlafaxine ER 0 mg PO [wrist splint wear nightly and as much as possible throughout the day] HPI HPI Comments History of Present Illness Details 62-year-old female with osteoarthritis a nd fibromyalgia returns for follow-up. She states that having lower back pain radiating down her lower extremities. She was recently evaluated by pain management and an MRI and bone density scan were ordered. Results pending. She also has been having bilateral knee cracking. She also gets bilateral shooting ankle pain she denies any swollen joints. Denies any significant stiffness. States that the winter was bad for her as all her joints hurt. Initial history: This is a 62-year-old female who presents for fibromyalgia follow-up. She was last seen by Jocelyn Dyer on 03/2022. Patient states that she continues to have pain in her neck, shoulders, hands, ankles, fingers. Is that the pain is intermittent. She had an SI joint injection by Pain Management which provided 1 week relief. She was then referred to do physical therapy for her L spine but patient stated that physical therapy never called her to schedule an appointment. [facility] Medical History Cyst of skin of breast Vaginal odor Abnormal Pap smear of cervix Chronic back pain Depression Anxiety Homeless Fibromyalgia Surgical History Hx of appendectomy Hx of cholecystectomy Family History Mother Kidney cancer Father Medical history unknown Daughter FH: HTN (hypertension) Diabetes Other Mental health disorder Social History Household Members: Children Household Members Other:: 1 Housing: Apartment Do you presently have visiting nurse or other home services: No Alcohol intake: never Patient Tobacco Use Status: Former Tobacco user Tobacco use type: Cigarette e-Cigarette/Vaping Use: Never Used Second Hand Smoke Exposure: No service: No Current occupational status: unemployed and disabled Cognitive needs: No Hearing needs: No Vision needs: Yes Review of Systems ENT Reports neck pain Musc Reports back pain, Reports arthralgias, Denies joint swelling, Reports neck pain, Reports numbness and Reports radiating pain into limb Neuro Reports numbness Physical Exam Vital Signs: Last Vital Signs Pulse 98 09/24/23 13:43 BP 118/72 09/24/23 13:43 Pulse Ox 99 09/24/23 13:43 Oxygen Delivery Method Room Air 09/24/23 13:43 BMI result Body Mass Index 31.3 Const General: cooperative, healthy appearing and comfortable Nutritional Appearance: obese Orientation/consciousness: patient oriented x3 Limitations: no limitations HEENT Head: Yes normocephalic and Yes atraumatic Resp Effort & Inspection: normal respiratory effort and able to speak in complete sentences Cardio Rate: regular rate Rhythm: regular rhythm Back/Spine/Pelvis Other: Lower lumbar spinal tenderness Neuro General: patient oriented x3 Extrem Other: No active synovitis both hands and wrists Normal range of motion of elbows and shoulders bilaterally Bilateral knee crepitus without swelling No ankle swelling or tenderness bilaterally Assessment & Plan Assessment & Plan (1) Polyarthralgia: Code(s): M25.50 - Pain in unspecified joint Plan: This is a 62-year-old female who presents for evaluation of polyarthralgia. Labs showed mildly elevated inflammatory markers with negative serology. Last year patient had some joint pain that resolved with prednisone taper. Had some suspicion of inflammatory arthritis. However upon my evaluation today her symptoms are rather consistent with degenerative arthritis. Discussed symptoms and signs that are suggestive of an inflammatory arthritis. Advised patient to return for any new symptoms. Follow-up in 1 year Patient was getting gabapentin refill from our clinic. States that it did help before. Advised patient to request refills from pain management or her PCP as I will not be evaluating her regularly Plan I spent 16 minutes reviewing patient's chart, evaluating patient, counseling patient and documenting in the chart Coding Level of Care Code Est Pt Level 3 (48606) Diagnoses Polyarthralgia M25.50
== END 2023-09-24 14:22 | disposition home or self-care (01) ==
PROVIDERS: PCP Internal Medicine; Visit Provider Student in an Organized Health Care Education/Training Program
DX: M25.50 Pain in unspecified joint (principal)
CPT/HCPCS: 99213

== ENCOUNTER → 2023-09-24 13:41 | Outpatient (BNVA) | payer OTHER, SELFPAY | PROVIDERS: PCP Internal Medicine; Visit Provider Student in an Organized Health Care Education/Training Program | DX: M79.7 Fibromyalgia (principal); M25.50 Pain in unspecified joint | CPT/HCPCS: 99212 ==

== ENCOUNTER 2023-10-21 09:57 | Outpatient (AMB) | payer OTHER, SELFPAY ==
--- NOTE | 2023-10-21 09:59 | MHC.OFFVIS ---
Vital Signs 10/21/23 10:03 Height 5 ft 2 in Weight 168 lb BMI 30.7 BP 134/78 Blood Pressure Location Rt brachial Position Sitting Respiration 14 Pulse 74 Pulse Source Pulse Oximeter Pulse Oximetry (%) 98 Oxygen Delivery Method Room Air Intake Visit Reasons: MRI results Allergies No Known Allergies Allergy (Verified 10/21/23 10:05) Medication List - Last Reconciled 10/21/23 by Kelsey Jeronimo LPN lamotrigine 25 mg PO BID lorazepam 0.5 mg PO DAILY PRN trazodone 50 mg PO BEDTIME venlafaxine ER (Effexor XR) 150 mg PO DAILY venlafaxine ER 0 mg PO [wrist splint wear nightly and as much as possible throughout the day] HPI HPI MRI results: Details: 62-year-old female who presents today for MRI results. She complains of pain in the lower back, which radiates down her lower extremities, which is causing numbness and tingling in the legs. She reports pain that aggravates with positional changes mostly from sitting to standing position. She reports shooting pain in her bilateral ankles. 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 She reports difficulty walking as her job requires lot of walking. She denies swelling and stiffness in her joints. She reports difficulty falling asleep at night secondary to pain. Pain has been present for about a year and half. Physical therapy and cortisone injections have not been helpful. She has also undergone SI joint injections with limited relief. She continues to take NSAIDs which are of not much benefit. She underwent a DEXA scan, which was within normal limits. She also endorses pain with walking that improves with rest and forward flexion. She endorses positive shopping cart leaning history. [facility] Medical History Cyst of skin of breast Vaginal odor Abnormal Pap smear of cervix Chronic back pain Depression Anxiety Homeless Fibromyalgia Surgical History Hx of appendectomy Hx of cholecystectomy Family History Mother Kidney cancer Father Medical history unknown Daughter FH: HTN (hypertension) Diabetes Other Mental health disorder Social History Household Members: Children Household Members Other:: 1 Housing: Apartment Do you presently have visiting nurse or other home services: No Alcohol intake: never Patient Tobacco Use Status: Former Tobacco user Tobacco use type: Cigarette e-Cigarette/Vaping Use: Never Used Second Hand Smoke Exposure: No service: No Current occupational status: unemployed and disabled Cognitive needs: No Hearing needs: No Vision needs: Yes Review of Systems Const All systems reviewed & are unremarkable except as noted in HPI and below Physical Exam Vital Signs: Last Vital Signs Pulse 74 10/21/23 10:03 Resp 14 10/21/23 10:03 BP 134/78 10/21/23 10:03 Pulse Ox 98 10/21/23 10:03 Oxygen Delivery Method Room Air 10/21/23 10:03 BMI result Body Mass Index 30.7 General: Appears afebrile. Alert and oriented. Mood and affect appropriate. Follows and participates in conversation appropriately. Respiratory effort is unlabored. Able to transition from sit to stand unassisted. Axial loading, lumbar ROM and flexion reproduce pain. Lumbar extension and facet loading reproduce pain. Results Reviewed Results Reviewed: 09/23/23: MR LUMBAR SPINE WITHOUT CONTRAST FINDINGS: Motion artifact is present. Minimal levocurvature at the thoracolumbar junction and mild testicle vasculature of the lumbar spine. Mild retrolisthesis at L5-S1. No acute bone marrow abnormality. The vertebral body heights are preserved. Multilevel disc desiccation with mild disc height loss at L4-L5. Acute reactive endplate changes at L5-S1. Multilevel endplate osteophytosis. The visualized spinal cord is normal in caliber. No abnormal cord signal. The conus medullaris terminates at T12-L1. T12-L1: No significant spinal canal or neural foraminal narrowing. L1-L2: Bilateral facet arthrosis. No significant spinal canal or neural foraminal narrowing. L2-L3: Diffuse disc bulge and bilateral facet arthrosis. No significant spinal canal stenosis. Mild left neural foraminal narrowing. L3-L4: Small left foraminal disc protrusion, ligamentum flavum hypertrophy, and bilateral facet arthrosis. No significant spinal canal or neural foraminal narrowing. L4-L5: Diffuse disc bulge, ligamentum flavum hypertrophy, and bilateral facet arthrosis. Moderate to severe spinal canal stenosis with mass effect on the cauda equina nerve roots. Mild to moderate left neural foraminal narrowing with the disc abutting the left exiting L4 nerve roots. L5-S1: Diffuse disc bulge, ligamentum flavum hypertrophy, and bilateral facet arthrosis. Mild to moderate spinal canal stenosis. Mild bilateral neural foraminal narrowing with the disc abutting the exiting L5 nerve roots bilaterally. The paravertebral soft tissues are unremarkable. IMPRESSION: Within the limitations of this study, -Multilevel lumbar spondylosis as described above with moderate to severe spinal canal stenosis at L4-L5 and mild to moderate spinal canal stenosis at L5-S1. -Multilevel neural foraminal narrowing is worst and mild to moderate at L4-L5 on the left. At L4-L5 and L5-S1, disc bulges abut the exiting left L4 and bilateral L5 nerve roots. Assessment & Plan Assessment & Plan (1) Lumbar spondylosis: Comment: most pronounced right L4/5 Code(s): M47.816 - Spondylosis without myelopathy or radiculopathy, lumbar region Category: Medical (2) Vertebrogenic low back pain: Comment: Schmorl's node L3 superior endplate Code(s): M54.51 - Vertebrogenic low back pain Category: Medical (3) Spinal stenosis, lumbar region with neurogenic claudication: Code(s): M48.062 - Spinal stenosis, lumbar region with neurogenic claudication Category: Medical Plan Discussed basivertebral nerve ablation procedure at L3, L4, L5, S1 for her vertebrogenic low back pain, peripheral stimulation trials for her facetogenic low back pain and minimally invasive lumbar decompression for her pain secondary to [id number] lumbar spinal stenosis at L3, L4 and L5. She has physical exam and history findings consistent with each of these different pain issues and would benefit from each of the three different therapies. At this time, her most bothersome symptom is axial pain that is worsened by lumbar ROM and aggravated by movement likely secondary to reactive endplate changes in her lumbar spine as seen on the MRI. In the due course of time we will consider temporary medial branch nerve stimulation for her facet/multifidus mediated component as well as potentially minimally invasive lumbar decompression for neurogenic claudication related symptoms. I provided the patient brochure for all these procedures and explained the details of these procedures to her. She signed a consent form for us to initiate prior authorization for the BVN ablation procedure. Justification for interventional therapy: Patient with average pain > 6/10 Patient has exhausted conservative therapy including physical therapy and oral medications. Scribed for Dr. Llanos by Bg Vee, biomedical electronics technician, on 10/21/2023. I, Dr. Llanos, have personally reviewed and agree with the information entered by the scribe. Coding Level of Care Code Est Pt Level 4 (76891) Diagnoses Lumbar spondylosis M47.816 Vertebrogenic low back pain M54.51 Spinal stenosis, lumbar region with neurogenic claudication M48.062
[2023-10-21 10:03] VITALS: BP 134/78; PULSE 74; RESP 14; O2SAT 98; BMI 30.7
== END 2023-10-21 10:28 | disposition home or self-care (01) ==
PROVIDERS: PCP Internal Medicine; Visit Provider Internal Medicine
DX: M47.816 Spondylosis without myelopathy or radiculopathy, lumbar region (principal); M54.51 Vertebrogenic low back pain; M48.062 Spinal stenosis, lumbar region with neurogenic claudication
CPT/HCPCS: 99214

== ENCOUNTER → 2023-10-21 09:57 | Outpatient (BNVA) | payer OTHER, SELFPAY | PROVIDERS: PCP Internal Medicine; Visit Provider Internal Medicine | DX: M47.816 Spondylosis without myelopathy or radiculopathy, lumbar region (principal); M54.51 Vertebrogenic low back pain; M48.062 Spinal stenosis, lumbar region with neurogenic claudication | CPT/HCPCS: 99212 ==

== ENCOUNTER 2024-01-06 06:24 | Day surgery (SDC) | payer OTHER, SELFPAY ==
--- NOTE | 2024-01-05 09:39 | HO.ANESPROP2 ---
Documented by User: Ashley Reilly NP 01/05/24 09:40 HPI - Anesthesia Eval Consult details Narrative: 63yo F for L3, L4, L5 and S1 Basivertebral Nerve Ablation PMFSH Active Problems Active Problems: All Active Problems Spinal stenosis, lumbar region with neurogenic claudication (Acute) Asymptomatic menopausal state (Acute) Dysplasia of cervix, low grade (PAULINO 1) (Acute) ASCUS with positive high risk HPV cervical (Acute) Chronic vertigo (Acute) Tendinitis of both rotator cuffs (Acute) History of blood in urine (Acute) Abnormal urinalysis (Acute) Urinary tract infection (Acute) Polyarthralgia (Acute) Bilateral carpal tunnel syndrome (Acute) Cyst of skin of breast (Acute) Vaginal odor (Acute) Lumbar radicular pain (Acute) Bicipital tendinitis, left shoulder (Acute) Sacroiliac joint pain (Acute) Lumbar spondylosis (Acute) Vertebrogenic low back pain (Acute) Elevated LFTs (Acute) Generalized abdominal pain (Acute) Abnormal CT scan, colon (Acute) Encounter for general adult medical examination with abnormal findings (Acute) Major depression, recurrent (Acute) Right shoulder pain (Acute) Low back pain (Acute) Headache (Acute) Difficulty sleeping (Acute) Chest pain, musculoskeletal (Acute) COVID-19 (Acute) Depression (Acute) Chronic back pain (Acute) Anxiety (Acute) Acute sinusitis (Acute) Homeless (Acute) Fibromyalgia (Acute) Past Medical History Medical History Cyst of skin of breast Vaginal odor Abnormal Pap smear of cervix Chronic back pain Depression Anxiety Homeless Fibromyalgia Family History Family History Mother Kidney cancer Father Medical history unknown Daughter FH: HTN (hypertension) Diabetes Other Mental health disorder Family history of problems with anesthesia: No Surgical History Surgical History Hx of appendectomy Hx of cholecystectomy History of Problems with Anesthesia: No Social History Social History Household Members: Children Household Members Other:: 1 Housing: Apartment Do you presently have visiting nurse or other home services: No Alcohol intake: never Patient Tobacco Use Status: Former Tobacco user Tobacco use type: Cigarette e-Cigarette/Vaping Use: Never Used Second Hand Smoke Exposure: No Use of substances other than those prescribed or required for medical reasons: No Are you DNR?: No Advance Directives: No Advance Directives Information Provided: Yes service: No Current occupational status: unemployed and disabled Cognitive needs: No Hearing needs: No Vision needs: Yes Meds Allergies Allergy/AdvReac Type Severity Reaction Status Date / Time No Known Allergies Allergy Verified 10/21/23 10:05 Home Medications ?Medication ?Instructions ?Recorded ?Confirmed ?Last Taken ?Type venlafaxine 150 mg 150 mg PO DAILY 06/01/20 10/21/23 05/15/22 History capsule,extended release 24 hr (Effexor XR) trazodone 50 mg tablet 50 mg PO BEDTIME 10/11/21 10/21/23 05/15/22 History lorazepam 1 mg tablet 0.5 mg PO DAILY PRN Anxiety 04/10/22 10/21/23 Unknown History lamotrigine 25 mg tablet 25 mg PO BID 01/16/23 10/21/23 Unknown History venlafaxine 37.5 mg 0 mg PO 01/16/23 10/21/23 Unknown History capsule,extended release 24 hr Assessment and Plan Assessment Anesthesia Assessment: Chart Reviewed Final Anesthetic Review Family History of Problems with Anesthesia: No History of Problems with Anesthesia: No Documented by User: Chandu Barton MD 01/06/24 08:35 [facility] Past Medical History Medical History Cyst of skin of breast Vaginal odor Abnormal Pap smear of cervix Chronic back pain Depression Anxiety Homeless Fibromyalgia Family History Family History Mother Kidney cancer Father Medical history unknown Daughter FH: HTN (hypertension) Diabetes Other Mental health disorder Surgical History Surgical History Hx of appendectomy Hx of cholecystectomy Social History Social History Household Members: Children Household Members Other:: 1 Housing: Apartment Do you presently have visiting nurse or other home services: No Alcohol intake: never Patient Tobacco Use Status: Former Tobacco user Tobacco use type: Cigarette e-Cigarette/Vaping Use: Never Used Second Hand Smoke Exposure: No Use of substances other than those prescribed or required for medical reasons: No Are you DNR?: No Advance Directives: No Advance Directives Information Provided: Yes service: No Current occupational status: unemployed and disabled Cognitive needs: No Hearing needs: No Vision needs: Yes Meds Allergies Allergy/AdvReac Type Severity Reaction Status Date / Time No Known Allergies Allergy Verified 10/21/23 10:05 Home Medications ?Medication ?Instructions ?Recorded ?Confirmed ?Last Taken ?Type venlafaxine 150 mg 150 mg PO DAILY 06/01/20 10/21/23 05/15/22 History capsule,extended release 24 hr (Effexor XR) trazodone 50 mg tablet 50 mg PO BEDTIME 10/11/21 10/21/23 05/15/22 History lorazepam 1 mg tablet 0.5 mg PO DAILY PRN Anxiety 04/10/22 10/21/23 Unknown History lamotrigine 25 mg tablet 25 mg PO BID 01/16/23 10/21/23 Unknown History venlafaxine 37.5 mg 0 mg PO 01/16/23 10/21/23 Unknown History capsule,extended release 24 hr Exam Airway Mallampati Class: II TM Dist: <=3cm Neck ROM: Full Loose/Missing/Broken Teeth: No Heart: ok Lungs: ok Assessment and Plan Assessment Anesthesia Assessment: Anesthesia Plan Discussed Final Anesthetic Review NPO: Yes ASA Class: II Final Preanesthetic Review: No Changes in Pt Med Stat, Meds/Allgs Chart Reviewed, Consent Obtained/Reviewed and Anes Risks/Benef Reviewed Patient Risk: Low Procedure Risk: Intermediate Anesthetic Plan Anesthetic Plan: GA and Agree w/ Assess. and Plan Disposition: Standard PACU
[2024-01-06] VITALS (8 sets, daily range): BP systolic 105–148; BP diastolic 58–81; PULSE 76–94; RESP 15–18; TEMP 36.4–36.8; O2SAT 95–98; BMI 31.1
--- NOTE | ~2024-01-06 | FL_ITS ---
EXAMINATION: XR FLUOROSCOPY WITH IMAGES CLINICAL INFORMATION: Nerve ablation COMPARISON: MR lumbar 09/23/2023. TECHNIQUE: Fluoroscopy provided to: Dr. Llanos Fluoroscopy time: 2.5 minutes DAP: 0.858 uGycm2 Images: 8 FINDINGS: Sequential images of the lumbar spine during nerve ablation. FL/FL guidance in OR IMPRESSION: Fluoroscopic guidance. Please refer to the full operative report for details. Electronically signed by: Chiki Au MD 03/08/2024 01:20 PM EDT
[2024-01-06] MEDS: Lactated Ringers 1,000 ML 100 ML IVCONT (07:45)
[2024-01-06] MEDS: dexAMETHasone sod phosphate 4 MG/ML VIAL IVPUSH (07:45)
--- NOTE | 2024-01-06 08:05 | MHC.SHP ---
Pre-Procedural Eval Section A - 24 Hr Update-Section A only Date of Service: 01/06/24 The patient is an INPATIENT: No Changes since office visit: Yes Patient answered all questions The patient has been examined within 24 hours of the surgical procedure. The History & Physical has been completed within 30 days and I have reviewed it.: No Section B - Complete if H&P > 30 days Chief Complaint: Vertebrogenic low back pain Relevant Family History (Specify if Yes): No Relevant Social History: None Present Medications: see Short Stay Collaborative assessment Medical History: No relevant PMH History of Previous Operations: No relevant previous surgery Allergies: Allergies Allergy/AdvReac Type Severity Reaction Status Date / Time No Known Allergies Allergy Verified 10/21/23 10:05 Review of Systems Sugical H&P ROS: Negative: Constitution, Cardiovascular and Respiratory Exam Surgical H&P Exam: Normal: HEENT, Normal: Heart and Normal: Lungs Plan Diagnosis/Plan: Unchanged I have reviewed the history and physical and performed a pertinent physical examination on my patient. No changes have occurred unless specified. Time Spent With Patient Time: Total time managing care of this patient today ____ minutes.
[2024-01-06 09:37] LABS: MRSA Nasal PCR NEGATIVE (Negative); SA Nasal PCR POSITIVE (Negative)
--- NOTE | 2024-01-06 10:51 | PM.OP ---
Brief Operative Note Date of Service: 01/06/24 Pre-op diagnosis: Vertebrogenic low back pain Post-op diagnosis: same Procedure: Basivertebral nerve ablation L3, L4, L5, S1 Implants: None Surgeon: Demario Llanos MD Anesthesia: GLMA Was an Passenger Coach Driver used for this Procedure?: No Estimated blood loss (mL): 50 Pathology: none sent Condition: stable Disposition: PACU
--- NOTE | 2024-01-06 10:53 | P.OP_ITS ---
Operative Note Operative Note Date of Service: 01/06/24 Narrative: Preoperative diagnosis: Vertebrogenic low back pain Postoperative diagnosis: Same Procedure: Basivertebral nerve (BVN) ablation ? Intracept Procedure L3, L4, L5, S1 Procedure Time Out: Patient ID confirmed, correct procedure to be performed, correct site and/or side for procedure as per marked location and correct medication(s), including antibiotic to be used for the procedure. Description of Procedure: After receiving anesthesia in the supine position, the patient was placed prone on the operating room table and all pressure points w ere appropriately padded. The back was sterilely prepped and draped. The C-arm was sterilely draped and moved into position to visualize the S1 vertebral body in the AP and lateral plane. The C-arm was rotated to a Fonseca view to square off the superior endplate at S1. The C-arm was then rotated to the right approximately 15-20 degrees for an approach to the left S1 pedicle. A skin incision was made with 15 scalpel blade. The introducer cannula with bevel tip was then introduced through the skin, subcutaneous tissue and paraspinal muscle until bony contact was made. The position was checked in the AP and lateral plane. Using a mallet, the trocar was then advanced thru the pedicle to the posterior aspect of the vertebral body using a combination of AP and lateral views to ensure appropriate traversing of the pedicle and no breaching of the pedicle medially. Once the trocar was in the posterior aspect of the S1 vertebral body, the trocar was removed from the cannula and the curved cannula assembly with the nitinol J-stylet was inserted. The spin wheel was rotated counterclockwise permitting excursion of the J-stylet. The curved cannula assembly was then advanced using a mallet in 1-2 mm increments. The J-stylet was observed to traverse the vertebral body in the AP and lateral views. The J- stylet was removed and replaced with the straight stylet to reach the BVN target. Target was reached when the tip of the stylet was 50% anterior of the posterior wall of the S1 in the lateral view (midway between the superior and inferior endplates) and it crossed the midline of the S1 spinous process in the AP view. The stylet was then removed. The bipolar radiofrequency (RF) probe was connected to the generator and then inserted into the introducer cannula in its ablation position. The spin wheel was rotated clockwise to retract the PEEK sleeve to expose the proximal electrode on the radiofrequency probe. The BVN was then ablated using [employer]?s standard RFG algorithm. While the ablation was occurring at S1, the C-arm was moved to visualize the target at the superolateral aspect of the L5 vertebral body. The C-arm was rotated to square off the superior endplate at L5 and rotated right to obtain an oblique view. The superolateral right L5 pedicle was identified for access. The same process was utilized to place the tip of the cannular 50% anterior of the posterior wall of the L5 in the lateral view (midway between the superior and inferior endplates) and it crossed the midline of the L5 spinous process in the AP view. The stylet was then removed. The bipolar radiofrequency (RF) probe was removed from the previous vertebral body, the tip cleaned and was inserted into the introducer cannula in its ablation position. The spin wheel was rotated clockwise to retract the PEEK sleeve to expose the proximal electrode on the radiofrequency probe. The BVN was then ablated using [employer]?s targeted RFG algorithm. While the ablation was occurring at L5, the C-arm was moved to visualize the target at the superolateral aspect of the L4 vertebral body using the approach similar to the L5 vertebral body. The C-arm was rotated to square off the superior endplate at L4 and rotated approximately to the left to obtain an oblique view. The superolateral left L4 pedicle was identified, and the skin entry point identified. Same steps were followed as for L5. Target was reached when the tip of the stylet was 50% anterior of the posterior wall of the L4 in the lateral view (midway between the superior and inferior endplates) and it crossed the midline of the L4 spinous process in the AP view. The stylet was then removed. The bipolar radiofrequency (RF) probe was removed from the previous vertebral body, the tip cleaned and was inserted into the introducer cannula in its ablation position. The spin wheel was rotated clockwise to retract the PEEK sleeve to expose the proximal electrode on the radiofrequency probe. The BVN was then ablated using [employer]?s targeted RFG algorithm. While the ablation was occurring at L4, the C-arm was moved to visualize the target at the superolateral aspect of the L3 vertebral body. The C-arm was rotated to square off the superior endplate at L3 and rotated right to obtain an oblique view. The superolateral right L3 pedicle was identified for access. The same process was utilized to place the tip of the cannular 50% anterior of the posterior wall of the L3 in the lateral view (midway between the superior and inferior endplates) and it crossed the midline of the L5 spinous process in the AP view. The stylet was then removed. The bipolar radiofrequency (RF) probe was removed from the previous vertebral body, the tip cleaned and was inserted into the introducer cannula in its ablation position. The spin wheel was rotated clockwise to retract the PEEK sleeve to expose the proximal electrode on the radiofrequency probe. The BVN was then ablated using [employer]?s targeted RFG algorithm. With all ablations completed, the instruments were removed from the vertebral bodies. The surgical wounds were closed with 2-0 silk sutures and a sterile dressing was applied. The patient was returned to the supine position and the anesthesia reversed. The patient tolerated the procedure well and was brought to the recovery room. The patient was provided post-op and follow up instructions. Complications: None Estimate Blood Loss: 50 mL
[2024-01-06] MEDS: Acetaminophen 325 MG TABLET 650 MG PO (11:13)
[2024-01-06] MEDS: oxyCODONE HCl Immed Release 5 MG TABLET PO (11:14)
== END 2024-01-06 12:14 | disposition home or self-care (01) ==
PROVIDERS: Registered Nurse Emergency; PCP Internal Medicine; Visit Provider Internal Medicine
PROC: (CPT 64628; principal; 2024-01-06 08:00)
DX: M54.51 Vertebrogenic low back pain (principal); R26.2 Difficulty in walking, not elsewhere classified; G89.29 Other chronic pain; M47.816 Spondylosis without myelopathy or radiculopathy, lumbar region; M48.062 Spinal stenosis, lumbar region with neurogenic claudication; M79.7 Fibromyalgia; F32.A Depression, unspecified; F41.9 Anxiety disorder, unspecified; Z79.899 Other long term (current) drug therapy; Z87.891 Personal history of nicotine dependence
CPT/HCPCS: 64628; 64629 ×2; 87640; 87641; C1889; J0690; J1100; J2250; J2405; J2704; J3010

== ENCOUNTER → 2024-01-06 06:24 | Outpatient (BNV) | payer OTHER, SELFPAY | PROVIDERS: PCP Internal Medicine; Visit Provider Internal Medicine | DX: M54.51 Vertebrogenic low back pain (principal) | CPT/HCPCS: 64628 ==

== ENCOUNTER 2024-01-15 10:28 | Outpatient (AMB) | payer OTHER, SELFPAY ==
--- NOTE | 2024-01-15 10:35 | A.OFFVIS_ITS ---
Vital Signs 01/15/24 10:36 Height 5 ft 2 in Weight 170 lb BMI 31.1 BP 120/70 Blood Pressure Location Lt brachial Position Sitting Respiration 14 Pulse 80 Pulse Source Pulse Oximeter Pulse Oximetry (%) 99 Oxygen Delivery Method Room Air Intake Visit Reasons: S/p L3, L4, L5 and S1 BVN 01/06/24 Allergies No Known Allergies Allergy (Verified 01/15/24 10:37) Medication List - Last Reconciled 01/15/24 by Kelsey Jeronimo LPN lamotrigine 25 mg PO BID lorazepam 0.5 mg PO DAILY PRN tramadol 50 mg PO BID PRN trazodone 50 mg PO BEDTIME venlafaxine ER (Effexor XR) 150 mg PO DAILY venlafaxine ER 0 mg PO [wrist splint wear nightly and as much as possible throughout the day] HPI HPI S/p L3, L4, L5 and S1 BVN 01/06/24: Details: 63-year-old female who presents today to the office for a status post L3-L4-L5 and S1 BVN ablation. The patient reports 80% relief following the procedure. She states that her pain is significantly improved after the procedure but has some residual soreness from the procedure. Past procedure: 01/06/24: Basivertebral nerve (BVN) ablation ? Intracept Procedure L3, L4, L5, S1: 80% relief, ongoing. 09/17/22: Sacroiliac Joint Injection, right: 30-40% relief for 1 week. PFSH Medical History Cyst of skin of breast Vaginal odor Abnormal Pap smear of cervix Chronic back pain Depression Anxiety Homeless Fibromyalgia Surgical History Hx of appendectomy Hx of cholecystectomy Family History Mother Kidney cancer Father Medical history unknown Daughter FH: HTN (hypertension) Diabetes Other Mental health disorder Social History Household Members: Children Household Members Other:: 1 Housing: Apartment Do you presently have visiting nurse or other home services: No Alcohol intake: never Comment: was medicated Patient Tobacco Use Status: Former Tobacco user Tobacco use type: Cigarette e-Cigarette/Vaping Use: Never Used Second Hand Smoke Exposure: No service: No Current occupational status: unemployed and disabled Cognitive needs: No Hearing needs: No Vision needs: Yes Review of Systems Const All systems reviewed & are unremarkable except as noted in HPI and below Physical Exam Vital Signs: Last Vital Signs Pulse 80 01/15/24 10:36 Resp 14 01/15/24 10:36 BP 120/70 01/15/24 10:36 Pulse Ox 99 01/15/24 10:36 Oxygen Delivery Method Room Air 01/15/24 10:36 BMI result Body Mass Index 31.1 General: Appears afebrile. Alert and oriented. Mood and affect appropriate. Follows and participates in conversation appropriately. Respiratory effort is unlabored. Able to transition from sit to stand unassisted. Ambulates with bilaterally normal heel strike and toe off. One of her incision site appears to be swollen with delayed healing. Results Reviewed Results Reviewed: No imaging is available for review. Assessment & Plan Assessment & Plan (1) Vertebrogenic low back pain: Comment: Schmorl's node L3 superior endplate Code(s): M54.51 - Vertebrogenic low back pain Category: Medical Plan The patient reports 80% relief following the procedure. On physical examination of the incision site, one of the sites appeared to be swollen with delayed healing. I put on a bacitracin dressing and provided a supply of the bacitracin dressing to apply at home on the site. She will call us if the site appears to be swollen or non-healing.? Scribed for Dr. Llanos by Jay Storm, medical affairs leader, on 01/15/2024. I, Dr. Llanos, have personally reviewed and agree with the information entered by the scribe. Coding Level of Care Code Est Pt Level 3 (96376) Diagnoses Vertebrogenic low back pain M54.51
[2024-01-15 10:36] VITALS: BP 120/70; PULSE 80; RESP 14; O2SAT 99; BMI 31.1
== END 2024-01-15 10:48 | disposition home or self-care (01) ==
PROVIDERS: PCP Internal Medicine; Visit Provider Internal Medicine
DX: M54.51 Vertebrogenic low back pain (principal)
CPT/HCPCS: 99024

== ENCOUNTER → 2024-01-15 10:28 | Outpatient (BNVA) | payer OTHER, SELFPAY | PROVIDERS: PCP Internal Medicine; Visit Provider Internal Medicine | DX: M54.51 Vertebrogenic low back pain (principal) | CPT/HCPCS: 99212 ==

== ENCOUNTER 2024-01-21 15:38 | Outpatient (REF) | payer OTHER, SELFPAY ==
--- NOTE | ~2024-01-21 | MM_ITS ---
EXAMINATION: MM SCREENING DIGITAL BREAST TOMOSYNTHESIS, BILATERAL CLINICAL INFORMATION: Screening. Asymptomatic. COMPARISON: Mammography: This study is compared with prior exams dating back to 2019. TECHNIQUE: Digital breast tomosynthesis is performed in both the craniocaudal and mediolateral oblique views along with computer-aided detection (CAD). Direct 2-D images of each breast in the standard screening projections are also obtained. FINDINGS: There are scattered areas of fibroglandular density (ACR BI-RADS breast composition Category b). There are no significant masses, abnormal calcifications, or other abnormalities. MM/MM tomosynthesis screening BI IMPRESSION: No mammographic evidence of malignancy. ASSESSMENT: BI-RADS BI-RADS 1 - Negative RECOMMENDATION: Routine annual mammography screening. 1 year F/U This examination should not preclude the clinical evaluation of a suspicious palpable abnormality. This patient's information was entered into a reminder system with a target due date for their next mammogram. Electronically signed by: Minal Guzman MD 02/18/2024 12:09 PM EDT
== END 2024-01-21 15:39 | disposition home or self-care (01) ==
LOC: HO.MAMMO 15:38
PROVIDERS: PCP Internal Medicine; Visit Provider Internal Medicine
DX: Z12.31 Encounter for screening mammogram for malignant neoplasm of breast (principal)
CPT/HCPCS: 77063; 77067

== ENCOUNTER → 2024-01-21 15:45 | Outpatient (BNV) | payer OTHER, SELFPAY | PROVIDERS: PCP Internal Medicine; Visit Provider Radiology Diagnostic Radiology | DX: Z12.31 Encounter for screening mammogram for malignant neoplasm of breast (principal) | CPT/HCPCS: 77063; 77067 ==

== ENCOUNTER 2024-04-05 15:28 | Outpatient (REF) | payer OTHER, SELFPAY ==
[2024-04-08 15:22] LABS: HPV mRNA E6/E7 Not Detected (Not Detected)
== END 2024-04-05 15:29 | disposition home or self-care (01) ==
LOC: HO.LNP 15:28
PROVIDERS: PCP Internal Medicine; Visit Provider Advanced Practice Midwife
DX: Z01.419 Encounter for gynecological examination (general) (routine) without abnormal findings (principal); N87.0 Mild cervical dysplasia
CPT/HCPCS: 87624; 88175; 99396

== ENCOUNTER 2024-04-05 15:28 | Outpatient (AMB) | payer OTHER, SELFPAY ==
[2024-04-05 15:35] VITALS: BP 110/70; BMI 30.7
--- NOTE | 2024-04-05 15:35 | A.OFFVIS_ITS ---
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 She is doing well with no concerns. Attempting to eat a healthy diet with calcium and vitamin D and stays active with exercise. Currently not sexually active. Denies any vaginal dryness or irritation. STI testing offered; she declines. Last pap smear; 2022-ascus positive HPV, colposcopy-PAULINO 1. Last mammogram; 2023. Colonoscopy is UTD. Denies any family history of breast, ovarian or colon cancer. [facility] Medical History Cyst of skin of breast Vaginal odor Abnormal Pap smear of cervix Chronic back pain Depression Anxiety Homeless Fibromyalgia Surgical History Hx of appendectomy Hx of cholecystectomy Family History Mother Kidney cancer Father Medical history unknown Daughter FH: HTN (hypertension) Diabetes Other Mental health disorder Social History Household Members: Children Household Members Other:: 1 Housing: Apartment Do you presently have visiting nurse or other home services: No Alcohol intake: never Comment: was medicated Patient Tobacco Use Status: Former Tobacco user Tobacco use type: Cigarette e-Cigarette/Vaping Use: Never Used Second Hand Smoke Exposure: No service: No Current occupational status: unemployed and disabled Cognitive needs: No Hearing needs: No Vision needs: Yes Female Reproductive History Menstrual Total pregnancies: 2 Full term: 2 Number of Living Children: 2 Date of last pap smear: 01/07/23 (ascus +hpv 11/ colpo paulino 1) History of abnormal pap smear: Yes (see intake note) Date of Mammogram: 08/08/24 (Birad 1) Date of last Bone Density Screenin09/08/23 Other: Colonoscopy 05/19/22 Review of Systems Const All systems reviewed & are unremarkable except as noted in HPI and below Reports as per HPI Eyes Reports no additional complaints ENT Reports no additional complaints Card Reports no additional complaints Resp Reports no additional complaints GI Reports as per HPI and Reports no additional complaints Reports as per HPI Musc Reports no additional complaints Skin/Breast Reports as per HPI Neuro Reports no additional complaints Psych Reports no additional complaints Endo Reports no additional complaints Reuben/Lymph Reports no additional complaints Aller/Immun Reports no additional complaints Physical Exam Vital Signs: Last Vital Signs BP 110/70 04/05/24 15:35 BMI result Body Mass Index 30.7 Const General: cooperative, healthy appearing, no acute distress, well developed and alert Orientation/consciousness: patient oriented x3 HEENT Head: Yes normal to inspection Eyes General: appearance normal, both eyes and all related structures Neck Neck: Yes normal visual inspection Thyroid: Thyroid normal Chest Chest palpation & inspection: normal inspection of the chest and other (no puckering, dimpling, peau de orange, retraction, discharge, masses) Breast/axilla inspection: normal inspection of the breasts Breast/axilla palpation: normal palpation of the breasts Resp Effort & Inspection: normal respiratory effort GI Inspection: Yes normal to inspection and Yes scar Palpation (GI): Soft to palpation Rectal Exam - Female: deferred General: Yes bladder normal to palpation External Female Exam: normal external appearance and normal appearance of the urethra Speculum Exam - Vagina: normal appearance of the vagina, normal palpation, norm al vaginal discharge and vagina atrophic Speculum Exam - Cervix: normal appearance of the cervix, normal palpation and Other cervical findings present (Bled slightly with Pap) Bimanual exam- vagina & uterus: normal bimanual exam, normal palpation, uterine size normal, bladder normal to palpation, normal palpation and non-tender Bimanual Exam- Adnexa, other: no masses Skin General skin exam: no rashes or lesions noted Rashes: no rashes Neuro General: patient oriented x3 Cognition (Neuro): normal cognition Extrem General: Yes normal to inspection Psych Attitude: cooperative Thought process: Normal thought process present Assessment & Plan Assessment & Plan (1) Encounter for well woman exam with routine gynecological exam: Code(s): Z01.419 - Encounter for gynecological examination (general) (routine) without abnormal findings Category: Medical (2) Abnormal Pap smear of cervix: Code(s): R87.619 - Unspecified abnormal cytological findings in specimens from cervix uteri Qualifiers: Abnormal Pap type: low grade squamous intraepithelial lesion (LGSIL) Qualified Code(s): R87.612 - Low grade squamous intraepithelial lesion on cytologic smear of cervix (LGSIL) Plan Discussed: Current recommendations for pap smears per ASCCP guidelines. Co-testing obtained today. Await results for plan of care. Breast awareness, periodic self breast exams and yearly mammogram. Maintain a healthy lifestyle, well balanced diet including Calcium 1,200 mg and Vitamin D 600 IU daily, and routine exercise. Contact the office with any postmenopausal bleeding. Patient verbalizes understanding and agrees to the plan of care. She was given opportunity to ask questions and all questions were answered to the best of my ability. 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 This note is constructed using voice recognition software. While every effort has been made to ensure accuracy, box office clerk errors may have been included. Coding Level of Care Code Est Pt Prev Care 40-64y(25347) Diagnoses Encounter for well woman exam with routine gynecological exam Z01.419 Low grade squamous intraepithelial lesion on cytologic smear of cervix (LGSIL) R87.612 Abnormal Pap type: low grade squamous intraepithelial lesion (LGSIL)
== END 2024-04-05 16:06 | disposition home or self-care (01) ==
PROVIDERS: PCP Internal Medicine; Visit Provider Advanced Practice Midwife
DX: Z01.419 Encounter for gynecological examination (general) (routine) without abnormal findings (principal); R87.612 Low grade squamous intraepithelial lesion on cytologic smear of cervix (LGSIL)
CPT/HCPCS: 99396

== ENCOUNTER 2024-04-26 13:31 | Outpatient (AMB) | payer OTHER, SELFPAY ==
[2024-04-26 13:34] VITALS: BP 118/72; PULSE 90; O2SAT 98; BMI 31.2
--- NOTE | 2024-04-26 13:34 | MHC.PC.OV ---
Vital Signs 04/26/24 13:34 Height 5 ft 2 in Weight 170 lb 8 oz BMI 31.2 BP 118/72 Blood Pressure Location Rt brachial Position Sitting Pulse 90 Pulse Source Pulse Oximeter Pulse Oximetry (%) 98 Oxygen Delivery Method Room Air Intake Visit Reasons: Annual PE Allergies No Known Allergies Allergy (Verified 04/05/24 15:35) Medication List - Last Reconciled 04/26/24 by Dunia Guajardo MD lamotrigine 25 mg PO BID lorazepam 0.5 mg PO DAILY PRN trazodone 50 mg PO BEDTIME venlafaxine ER (Effexor XR) 150 mg PO DAILY venlafaxine ER 0 mg PO Tobacco use date assessed: 04/15/23 Dental Screening Dental Screen Date: 04/15/23 HPI Annual PE HPI Details Physical exam appointment Complaining of feeling dizzy Ear exam within normal limit We talked about meclizine which is [id number] patient may take that as needed Patient has a history of spinal stenosis, currently she is seeing a pain management for treatment Lab order placed to be done fasting Mammogram is up-to-date Colonoscopy was May of 2022 OBGYN visit was March of this year She is taking no medication from this office Seeing a psychiatrist and taking medication for depression and anxiety She also sees Rheumatology for polyarthralgia and fibromyalgia PFSH Medical History Cyst of skin of breast Vaginal odor Abnormal Pap smear of cervix Chronic back pain Depression Anxiety Homeless Fibromyalgia Surgical History Hx of appendectomy Hx of cholecystectomy Family History Mother Kidney cancer Father Medical history unknown Daughter FH: HTN (hypertension) Diabetes Other Mental health disorder Social History Household Members: Children Household Members Other:: 1 Housing: Apartment Do you presently have visiting nurse or other home services: No Alcohol intake: never Comment: was medicated Patient Tobacco Use Status: Former Tobacco user Tobacco use type: Cigarette e-Cigarette/Vaping Use: Never Used Second Hand Smoke Exposure: No service: No Current occupational status: unemployed and disabled Cognitive needs: No Hearing needs: No Vision needs: Yes Questionnaire PHQ-9 Over the last 2 weeks, how often have you been bothered by any of the following problems? 1. Little interest or pleasure in doing things: nearly every day 2. Feeling down, depressed, or hopeless: not at all 3. Trouble falling or staying asleep, or sleeping too much: nearly every day 4. Feeling tired or having little energy: several days 5. Poor appetite or overeating: several days 6. Feeling bad about yourself - or that you are a failure or have let yourself or your family down: not at all 7. Trouble concentrating on things, such as reading the newspaper or watching television: several days 8. Moving or speaking so slowly that other people could have noticed. Or the opposite - being so fidgety or restless that you have been moving around a lot more than usual: not at all 9. Thoughts that you would be better off or of hurting yourself in some way: not at all Total score: 5 Depression Screening Interpretation: Negative Depression Screening Done: Yes 68698 - PHQ-9 Billing: Yes Source: Developed by Drs. Brendon Garduno, Sara Zhao, Castro Cerrato and colleagues, with an educational nichol from [employer]. Thrive Questionnaire Date Thrive assessed: 02/20/23 I am a: Patient What is your living situation today?: I have a steady place to live Within the past 12 months, did the food you bought not last and you didn't have the money to get more?: Sometimes True Within the past 12 months, did you worry whether your food would run out before you got money to buy more?: Sometimes True Do you have trouble paying for medicines?: No Do you have trouble getting transportation to medical appointments?: No Do you have trouble paying your heating and electricity bill?: No Do you have trouble taking care of your child, family member or friend?: No Do you have trouble with day-to-day activities such as bathing, preparing meals, shopping, managing finances, etc.?: No Are you currently unemployed and looking for a job?: Yes Are you interested in more education?: No Please select the resources that you would like help with: None Currently or been in a relationship where the following occur: No concerns reported THRIVE Score: 2 AUDIT C Alcohol Use Questionnaire (AUDIT-C) 1. How often do you have a drink containing alcohol?: Never Total Score: 0 TAY-7 AMB Questionnaire TAY-7 Date TAY - 7 assessed: 02/20/23 Feeling nervous, anxious, or on edge: 1 = Several days Not being able to stop or control worryin = More than half the days Worrying too much about different things: 2 = More than half the days Trouble relaxin = Nearly every day Being so restless that it is hard to sit still: 1 = Several days Becoming easily annoyed or irritable: 2 = More than half the days Feeling afraid as if something awful might happen: 0 = Not at all Total TAY-7 score (0-4 normal; 5-9 mild; 10-14 moderate; 15-21 severe): 11 Source: Developed by Drs. Brendon Garduno, Sara Zhao, Castro Cerrato and colleagues, with an educational nichol from [employer]. Review of Systems Const Denies chills, Denies fever(s) and Denies headache(s) Eyes Denies blurry vision ENT Denies headache(s), Denies nasal discharge, Denies nasal obstruction, Denies odynophagia and Denies sinus pain Card Denies chest pain at rest and Denies chest pain with activity Resp Denies cough and Denies hemoptysis GI Denies diarrhea, Denies odynophagia, Denies vomiting and Denies hematemesis Reports as per HPI Musc Denies abnormal gait Skin/Breast Reports as per HPI Neuro Denies Neuro-related abnormal movements, Denies Abnormal speech present, Denies abnormal gait, Denies headache(s) and Denies Sensory deficit (Neuro) Psych Denies mood swings and Denies paranoia Endo Reports as per HPI Reuben/Lymph Reports as per HPI Aller/Immun Reports as per HPI Physical exam (Primary Care) Vital Signs: Last Vital Signs Pulse 90 04/26/24 13:34 BP 118/72 04/26/24 13:34 Pulse Ox 98 04/26/24 13:34 Oxygen Delivery Method Room Air 04/26/24 13:34 BMI result Body Mass Index 31.2 Tobacco/Smoking Status: Tobacco use Status Tobacco use date assessed 04/15/23 04/26/24 13:37 Patient Tobacco Use Status Former Tobacco user 04/26/24 13:37 Tobacco use type Cigarette 04/26/24 13:37 e-Cigarette/Vaping Use Never Used 04/26/24 13:37 Depression Screening Interpretation: Negative Thrive Assessment: Date of Thrive Assessment Date Thrive assessed 02/20/23 04/26/24 13:37 Currently or been in a relationship where the following occur: No concerns reported Const General: cooperative, comfortable and no acute distress Orientation/consciousness: patient oriented x3 HENMT Head: Yes normocephalic and Yes atraumatic Eyes General: appearance normal, both eyes and all related structures Pupils: Equal, round and reactive pupils present EOM: EOMs intact bilaterally Neck Neck: Yes supple and No lymphadenopathy Thyroid: Thyroid normal Lymphatic: no lymphadenopathy noted Resp Effort & Inspection: normal respiratory effort and able to speak in complete sentences Auscultation: clear to auscultation bilaterally Cardio Heart sounds: S1 normal heart sound present and S2 normal heart sound present GI Palpation (GI): Soft to palpation and nontender Auscultation: normal bowel sounds General: Yes no CVA tenderness Back/Spine/Pelvis Back: no CVA tenderness Skin General skin exam: elasticity normal and turgor normal Neuro General: patient oriented x3 and gait normal Cranial nerves: Yes Equal, round and reactive pupils present Speech: No Abnormal speech present Sensory Exam: No Sensory deficit (Neuro) Coordination: tandem gait normal and Romberg test negative Extrem General: Yes normal exam except as noted and No edema Coding Level of Care Code Est Pt Level 3 (74238) Est Pt Prev Care 40-64y(07717) Diagnoses Encounter for general adult medical examination with abnormal findings Z00. Vertigo R42 Recurrent major depressive disorder, in partial remission F33.41 Active/Remission status: in partial remission Fibromyalgia M79.7 Lumbar spondylosis M47.816 Spinal stenosis, lumbar region with neurogenic claudication M48.062 Difficulty sleeping G47.9 Additional Codes PHQ-9 - 59340 - PHQ-9 Billing: Yes ([id number]) Assessment & Plan Assessment & Plan (1) Encounter for general adult medical examination with abnormal findings: Code(s): Z00.01 - Encounter for general adult medical examination with abnormal findings Category: Medical (2) Vertigo: Code(s): R42 - Dizziness and giddiness Category: Medical (3) Major depression, recurrent: Code(s): F33.9 - Major depressive disorder, recurrent, unspecified Category: Medical Qualifiers: Active/Remission status: in partial remission Qualified Code(s): F33.41 - Major depressive disorder, recurrent, in partial remission (4) Fibromyalgia: Code(s): M79.7 - Fibromyalgia Category: Medical (5) Lumbar spondylosis: Comment: most pronounced right L4/5 Code(s): M47.816 - Spondylosis without myelopathy or radiculopathy, lumbar region Category: Medical (6) Spinal stenosis, lumbar region with neurogenic claudication: Code(s): M48.062 - Spinal stenosis, lumbar region with neurogenic claudication Category: Medical (7) Difficulty sleeping: Code(s): G47.9 - Sleep disorder, unspecified Category: Medical Plan Physical exam appointment Complaining of feeling dizzy Ear exam within normal limit We talked about meclizine which is [id number] patient may take that as needed Patient has a history of spinal stenosis, currently she is seeing a pain management for treatment Lab order placed to be done fasting Mammogram is up-to-date Colonoscopy was May of 2022 OBGYN visit was March of this year She is taking no medication from this office Seeing a psychiatrist and taking medication for depression and anxiety She also sees Rheumatology for polyarthralgia and fibromyalgia Orders: Orders Complete Blood Count Auto Diff Today F33.41 - Major depressive disorder, recurrent, in partial remission, G47.9 - Sleep disorder, unspecified, M47.816 - Spondylosis without myelopathy or radiculopathy, lumbar region, M48.062 - Spinal stenosis, lumbar region with neurogenic claudication, M79.7 - Fibromyalgia, Z00.01 - Encounter for general adult medical examination with abnormal findings Comprehensive [place]. Panel Fast Today F33.41 - Major depressive disorder, recurrent, in partial remission, G47.9 - Sleep disorder, unspecified, M47.816 - Spondylosis without myelopathy or radiculopathy, lumbar region, M48.062 - Spinal stenosis, lumbar region with neurogenic claudication, M79.7 - Fibromyalgia, Z00.01 - Encounter for general adult medical examination with abnormal findings Lipid Panel Today F33.41 - Major depressive disorder, recurrent, in partial remission, G47.9 - Sleep disorder, unspecified, M47.816 - Spondylosis without myelopathy or radiculopathy, lumbar region, M48.062 - Spinal stenosis, lumbar region with neurogenic claudication, M79.7 - Fibromyalgia, Z00.01 - Encounter for general adult medical examination with abnormal findings Vitamin D 25-OH (D2 and D3) Today F33.41 - Major depressive disorder, recurrent, in partial remission, G47.9 - Sleep disorder, unspecified, M47.816 - Spondylosis without myelopathy or radiculopathy, lumbar region, M48.062 - Spinal stenosis, lumbar region with neurogenic claudication, M79.7 - Fibromyalgia, Z00.01 - Encounter for general adult medical examination with abnormal findings TSH reflex Free T4 Today F33.41 - Major depressive disorder, recurrent, in partial remission, G47.9 - Sleep disorder, unspecified, M47.816 - Spondylosis without myelopathy or radiculopathy, lumbar region, M48.062 - Spinal stenosis, lumbar region with neurogenic claudication, M79.7 - Fibromyalgia, Z00.01 - Encounter for general adult medical examination with abnormal findings UA CC w/rflx Micro + Cult Today F33.41 - Major depressive disorder, recurrent, in partial remission, G47.9 - Sleep disorder, unspecified, M47.816 - Spondylosis without myelopathy or radiculopathy, lumbar region, M48.062 - Spinal stenosis, lumbar region with neurogenic claudication, M79.7 - Fibromyalgia, Z00.01 - Encounter for general adult medical examination with abnormal findings
== END 2024-04-26 13:52 | disposition home or self-care (01) ==
PROVIDERS: PCP Internal Medicine; Visit Provider Internal Medicine
DX: Z00.00 Encounter for general adult medical examination without abnormal findings (principal); R42 Dizziness and giddiness; F33.41 Major depressive disorder, recurrent, in partial remission; M79.7 Fibromyalgia; M47.816 Spondylosis without myelopathy or radiculopathy, lumbar region; M48.062 Spinal stenosis, lumbar region with neurogenic claudication; G47.9 Sleep disorder, unspecified

== ENCOUNTER → 2024-04-26 13:31 | Outpatient (BNVA) | payer OTHER, SELFPAY | PROVIDERS: PCP Internal Medicine; Visit Provider Internal Medicine | DX: Z00.01 Encounter for general adult medical examination with abnormal findings (principal); R42 Dizziness and giddiness; F33.41 Major depressive disorder, recurrent, in partial remission; M79.7 Fibromyalgia; M47.816 Spondylosis without myelopathy or radiculopathy, lumbar region; M48.062 Spinal stenosis, lumbar region with neurogenic claudication; G47.9 Sleep disorder, unspecified | CPT/HCPCS: 96127; 99212; 99396 ==

== ENCOUNTER 2024-04-27 14:16 | Outpatient (REF) | payer OTHER, SELFPAY ==
[2024-04-27 16:18] LABS: Appearance Urine Clear; Color Urine Yellow; Glucose Urine UA Negative (Negative); Leukocyte Esterase Urine Negative (Negative); Nitrite Urine Negative (Negative); Urine Blood Negative (Negative); Urine Ketones Negative (Negative); Urine Protein Negative (Neg-Trace)
[2024-04-27 16:24] LABS: MANUAL DIFF FLAG NO
[2024-04-27 16:36] LABS: Basophils Percent Auto 0.4 % (0-2); Eosinophils Absolute Auto 0.2 X10*3/uL (0.0-0.4); Hematocrit 39.5 % (37.0-47.0); Hemoglobin 13.1 g/dl (12.0-16.0); Imm Gran Abs Auto 0.04 X10*3/uL (0.00-0.03); Imm Gran Pct Auto 0.5 % (0.0-0.4); Lymphocytes Percent Auto 25.9 % (20-40); Mean Corpuscular HGB Conc 33.2 g/dl (31.0-35.0); Mean Corpuscular Hemoglobin 29.4 pg (27.0-33.0); Mean Corpuscular Volume 88.6 fL (80.0-98.0); Mean Platelet Volume 9.6 fL (9.4-12.3); Monocytes Absolute Auto 0.6 X10*3/uL (0.1-1.2); Monocytes Percent Auto 8.1 % (2-11); Neutrophils Absolute Auto 4.7 x10*3/uL (2.0-8.3); Neutrophils Percent Auto 62.1 % (45-73); Platelet Count 267 X10*3/uL (160-400); Red Blood Count 4.46 X10*6/uL (4.20-5.50); Red Cell Distribution Width 13.7 % (11.0-16.0); White Blood Count 7.6 X10*3/uL (4.8-10.8)
[2024-04-27 16:56] LABS: Alanine Aminotransferase 20 U/L (0-31); Alkaline Phosphatase 144 U/L (39-117); Anion Gap 10 (12-20); Aspartate Amino Transferase 25 U/L (5-31); Bilirubin Total 0.4 mg/dL (0.0-1.0); Blood Urea Nitrogen 17 mg/dL (9-16); Calcium 9.6 mg/dL (8.4-10.2); Carbon Dioxide 28 mmol/L (22-29); Chloride 105 mmol/L (96-108); Cholesterol 172 mg/dL (<200); Estimated Glomerular Filt Rate > 60; Glucose Fasting 106 mg/dL (60-99); HDL Cholesterol 52 mg/dL (>40); LDL Cholesterol Calculated 109 mg/dL (<100); Sodium 139 mmol/L (135-145); Total Protein 7.5 g/dL (6.5-8.0); Triglycerides 56 mg/dL (<150)
[2024-04-27 17:14] LABS: TSH reflex Free T4 1.93 uIU/mL (0.32-4.0)
[2024-05-01 16:54] LABS: Vitamin D 25-OH, D2 <4 ng/mL; Vitamin D 25-OH, D3 23 ng/mL; Vitamin D 25-OH, Total 23 ng/mL (30-100)
== END 2024-04-27 14:17 | disposition home or self-care (01) ==
LOC: HO.HMGCLDS 14:16
PROVIDERS: PCP Internal Medicine; Visit Provider Internal Medicine
DX: Z00.01 Encounter for general adult medical examination with abnormal findings (principal); F33.41 Major depressive disorder, recurrent, in partial remission; M79.7 Fibromyalgia; M47.816 Spondylosis without myelopathy or radiculopathy, lumbar region; M48.062 Spinal stenosis, lumbar region with neurogenic claudication; G47.9 Sleep disorder, unspecified
CPT/HCPCS: 36415; 80053; 80061; 81003; 82306; 84443; 85025

== ENCOUNTER 2024-10-14 11:31 | Outpatient (AMB) | payer OTHER, SELFPAY ==
--- NOTE | 2024-10-14 11:38 | MHC.OFFVIS ---
Vital Signs 10/14/24 11:40 Height 5 ft 2 in Weight 166 lb BMI 30.4 BP 137/72 Blood Pressure Location Lt brachial Position Sitting Respiration 16 Pulse 79 Pulse Source Pulse Oximeter Pulse Oximetry (%) 97 Oxygen Delivery Method Room Air Intake Visit Reasons: FU low back pain/patient req [place] Required: No Allergies No Known Allergies Allergy (Verified 10/14/24 11:40) Medication List - Last Reconciled 10/14/24 by Kelsey Jeronimo LPN duloxetine 20 mg PO BID lamotrigine 25 mg PO BID lorazepam 0.5 mg PO DAILY PRN trazodone 100 mg PO BEDTIME HPI HPI FU low back pain/patient req: Details: History of Present Illness The patient is a 63-year-old female presenting with a history of chronic low back pain that has recurred significantly over the past month and a half. She reports exacerbation of both leg and back pain, impacting her ability to perform daily activities. The back pain appears to be more severe and debilitating. The patient notes that before the current exacerbation, she had some relief following a prior procedure. Straight leg raise testing performed by the clinician is positive on the left side, supporting the diagnosis of radiculopathy. Previously, imaging had shown moderate spinal stenosis. Pain Description - Onset: Chronic, worsened over the last month and a half - Quality: Radiating, affecting both legs - Primary Location: Low back - Radiation: Legs, more pronounced on the left - Exacerbating Factors: Sitting, standing, mopping - Relieving Factors: Not discussed - Interference with Activities: Prevents normal sleep and daily activities Physical Exam - Musculoskeletal- Positive straight leg raise test on the left side Results - Tests and Diagnostics: - Prior MRI indicating moderate spinal stenosis Pain Management - Affect: Pain significantly impacts daily activities and function - Analgesia: Not currently addressed - Adverse Effects: None reported from current medications - Activities of Daily Living: Impaired significantly by pain, particularly in performing physical tasks and affecting sleep - Aberrant Drug Related Behaviors: None reported PFSH Medical History Cyst of skin of breast Vaginal odor Abnormal Pap smear of cervix Chronic back pain Depression Anxiety Homeless Fibromyalgia Surgical History Hx of appendectomy Hx of cholecystectomy Family History Mother Kidney cancer Father Medical history unknown Daughter FH: HTN (hypertension) Diabetes Other Mental health disorder Social History Household Members: Children Household Members Other:: 1 Housing: Apartment Do you presently have visiting nurse or other home services: No Alcohol intake: never Comment: was medicated Patient Tobacco Use Status: Former Tobacco user Tobacco use type: Cigarette e-Cigarette/Vaping Use: Never Used Second Hand Smoke Exposure: No service: No Current occupational status: unemployed and disabled Cognitive needs: No Hearing needs: No Vision needs: Yes Physical Exam Vital Signs: Last Vital Signs Pulse 79 10/14/24 11:40 Resp 16 10/14/24 11:40 BP 137/72 10/14/24 11:40 Pulse Ox 97 10/14/24 11:40 Oxygen Delivery Method Room Air 10/14/24 11:40 BMI result Body Mass Index 30.4 Assessment & Plan Assessment & Plan (1) Lumbar radicular pain: Code(s): M54.16 - Radiculopathy, lumbar region Category: Medical Plan Plan - L4-5 left parasagittal interlaminar [place] - Evaluate effectiveness of cortisone shot for temporary pain relief - Reviewed prior MRI findings for moderate spinal stenosis - Emphasize on patient-led exercises to be learned in physical therapy Patient was informed and verbally consented to the use of an ambient scribe for clinic note documentation during this visit. Discussion Notes I discussed with the patient the use of a cortisone injection to potentially provide temporary relief from severe back pain and enable her to engage in physical therapy effectively. We reviewed her MRI findings showing moderate spinal stenosis, and I explained that while her condition does not currently require surgical decompression, we may need to consider this as a future option if current treatment does not lead to significant improvement. I informed the patient that Richard will contact her with directions for the procedure, which is scheduled in a procedure area next to radiology. I encouraged her to perform exercises at home learned during physical therapy and expressed that these could aid in managing her pain. Patient Instructions - Schedule and attend the cortisone injection procedure as directed - Engage in physical therapy post-injection, and learn home exercises - Monitor symptoms and report any significant changes - Follow up as directed for reassessment of pain and further treatment options as needed Coding Level of Care Code Est Pt Level 4 (63077) Diagnoses Lumbar radicular pain M54.16
[2024-10-14 11:40] VITALS: BP 137/72; PULSE 79; RESP 16; O2SAT 97; BMI 30.4
== END 2024-10-14 12:07 | disposition home or self-care (01) ==
LOC: HO.PMC 11:31
PROVIDERS: PCP Internal Medicine; Visit Provider Internal Medicine
DX: M54.16 Radiculopathy, lumbar region (principal)
CPT/HCPCS: 99214

== ENCOUNTER → 2024-10-14 11:31 | Outpatient (BNVA) | payer OTHER, SELFPAY | PROVIDERS: PCP Internal Medicine; Visit Provider Internal Medicine | DX: M54.16 Radiculopathy, lumbar region (principal) | CPT/HCPCS: 99212 ==

== ENCOUNTER 2024-11-17 06:11 | Outpatient (REF) | payer OTHER, SELFPAY ==
--- NOTE | ~2024-11-17 | FL_ITS ---
EXAMINATION: FL GUIDANCE ONLY HISTORY: M48.062 - Spinal stenosis, lumbar region with neurogenic claudication COMPARISON: None available. TECHNIQUE: Fluoroscopy time: 11 seconds. Cumulative Dose: 3.1080 mGy. DAP: 0.3140 mGym2 Images: 2. FINDINGS: AP and lateral fluoroscopic spot films of the lumbar spine demonstrate a needle and contrast material in place. FL/FL guidance in treatment room IMPRESSION: Fluoroscopy during procedure. Please see procedure report for additional information. Electronically signed by: Brendon Son MD 11/17/2024 03:00 PM EDT
== END 2024-11-17 06:12 | disposition home or self-care (01) ==
LOC: CF 06:11
PROVIDERS: Visit Provider Internal Medicine
DX: M48.062 Spinal stenosis, lumbar region with neurogenic claudication (principal); M54.16 Radiculopathy, lumbar region
CPT/HCPCS: 62323; J2003; J3301; Q9967

== ENCOUNTER 2024-11-17 12:07 | Outpatient (AMB) | payer OTHER, SELFPAY ==
[2024-11-17 12:22] VITALS: BP 135/72; PULSE 76; RESP 16; O2SAT 96
--- NOTE | 2024-11-17 12:22 | A.OFFVIS_ITS ---
Vital Signs 11/17/24 12:22 11/17/24 12:57 BP 135/72 134/73 Blood Pressure Location Lt brachial Lt brachial Position Sitting Sitting Respiration 16 16 Pulse 76 78 Pulse Source Pulse Oximeter Pulse Oximeter Pulse Oximetry (%) 96 98 Oxygen Delivery Method Room Air Room Air Intake Visit Reasons: Left L4-L5 interlaminar [place] Allergies No Known Allergies Allergy (Verified 11/17/24 12:23) Medication List - Last Reconciled 11/17/24 by Kelsey Jeronimo LPN duloxetine 20 mg PO BID lamotrigine 25 mg PO BID lorazepam 0.5 mg PO DAILY PRN trazodone 100 mg PO BEDTIME HPI HPI Left L4-L5 interlaminar [place]: Details: Patient presents for scheduled procedure. Denies any recent cough, cold, infection, fever or other significant changes in medical history since last office visit. [facility] Medical History Cyst of skin of breast Vaginal odor Abnormal Pap smear of cervix Chronic back pain Depression Anxiety Homeless Fibromyalgia Surgical History Hx of appendectomy Hx of cholecystectomy Family History Mother Kidney cancer Father Medical history unknown Daughter FH: HTN (hypertension) Diabetes Other Mental health disorder Social History Household Members: Children Household Members Other:: 1 Housing: Apartment Do you presently have visiting nurse or other home services: No Alcohol intake: never Comment: was medicated Patient Tobacco Use Status: Former Tobacco user Tobacco use type: Cigarette e-Cigarette/Vaping Use: Never Used Second Hand Smoke Exposure: No service: No Current occupational status: unemployed and disabled Cognitive needs: No Hearing needs: No Vision needs: Yes Physical Exam Vital Signs: Last Vital Signs Pulse 78 11/17/24 12:57 Resp 16 11/17/24 12:57 BP 134/73 11/17/24 12:57 Pulse Ox 98 11/17/24 12:57 Oxygen Delivery Method Room Air 11/17/24 12:57 Office Procedures AMB Joint Injection/Aspiration Joint Injection/Aspiration Details: Interlaminar epidural steroid injection, L4/5, left parasaggital After obtaining written consent, pre-procedure blood pressure and heart rate were stable and recorded in the nursing record. The patient was placed in the prone position. The lumbar area was widely prepped with chloraprep and draped in sterile fashion. Fluoroscopic guidance was used to identify the desired interlaminar space and for needle placement. Subcutaneous 0.5% lidocaine was used to anesthetize the skin overlying the target. A 20-gauge Velez needle was advanced to the epidural space using loss of resistance to contrast technique under fluoroscopic AP and contralateral oblique views. There was no evidence of heme or CSF and no paresthesias were elicited with needle placement. Confirmation of epidural needle placement was performed with 1cc of omnipaque 180. Next 3 ml 0.5% lidocaine mixed with 80 mg triamcinilone was administered epidurally with no pain elicited on injection. The needle tract tubing was then cleared with 1 ml of 0.5% lidocaine. The needle was removed, skin cleansed and a sterile bandage was applied. The patient tolerated the procedure well and no complications were encountered. Following the procedure the patient's vital signs were stable. The patient was discharged home in good condition with post-procedural instructions. Time Out: Immediately prior to the procedure, the following was verbally confirmed that there is a signed consent form and that the correct patient, planned procedure, site and side are consistent with documentation and that necessary equipment and/or blood products are available prior to the start of the case. Complications: none EBL: <2 cc Coding 45865 - Caudal/Lumbar Epidural/Interlaminar with fluoroscopy Procedure code (CPT) selection complete Assessment & Plan Assessment & Plan (1) Lumbar radicular pain: Code(s): M54.16 - Radiculopathy, lumbar region Category: Medical Plan Patient is status post left parasagittal interlaminar L4/5 [place]. Patient tolerated procedure well and was discharged home in stable condition with discharge instructions. All questions were answered. We will follow-up via telephone or in clinic to assess response to therapy. A follow-up appointment was made during today's visit. Orders: Orders FL guidance in treatment room 11/17/24 M48.062 - Spinal stenosis, lumbar region with neurogenic claudication Coding Level of Care Code Procedure Only Diagnoses Lumbar radicular pain M54.16 CPT Codes Coding - Joint 11: 55895 - Caudal/Lumbar Epidural/Interlaminar with fluoroscopy ([id number])
[2024-11-17 12:57] VITALS: BP 134/73; PULSE 78; RESP 16; O2SAT 98
== END 2024-11-17 13:23 | disposition home or self-care (01) ==
LOC: HO.PMCPRC 12:07
PROVIDERS: PCP Internal Medicine; Visit Provider Internal Medicine
DX: M54.16 Radiculopathy, lumbar region (principal)
CPT/HCPCS: 62323

== ENCOUNTER 2024-12-30 10:11 | Outpatient (AMB) | payer OTHER, SELFPAY ==
--- NOTE | 2024-12-30 10:13 | MHC.OFFVIS ---
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 She reports that the injection provided significant relief initially, with approximately 90% pain relief, but the pain has started to return. The injection was administered six weeks ago, and she is considering a repeat injection in six weeks, totaling three months from the last injection. 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 She has not engaged in physical therapy since the year before last and is open to resuming therapy for her hip pain. Additionally, she experiences daily struggles with pain due to fibromyalgia and osteoarthritis, which affect her ability to perform daily activities such as standing or sitting for extended periods. Pain Description - Pain initially relieved by epidural steroid injection, now returning - Right hip pain in the greater trochanteric region, worsened by bending - Daily pain struggles due to fibromyalgia and osteoarthritis, affecting standing and sitting Physical Exam - Appears afebrile. - Alert and oriented. - Mood and affect appropriate. - Follows and participates in conversation appropriately. - Respiratory effort is unlabored. - Able to transition from sit to stand unassisted. - Ambulates with bilaterally normal heel strike and toe off. - Able to stand and walk on toes and heels. Results Pain Management - Affect: Pain impacts daily activities and mobility - Analgesia: Initial 90% relief from epidural steroid injection, pain returning - Activities of Daily Living: Pain affects ability to stand or sit for long periods [facility] Medical History Cyst of skin of breast Vaginal odor Abnormal Pap smear of cervix Chronic back pain Depression Anxiety Homeless Fibromyalgia Surgical History Hx of appendectomy Hx of cholecystectomy Family History Mother Kidney cancer Father Medical history unknown Daughter FH: HTN (hypertension) Diabetes Other Mental health disorder Social History Household Members: Children Household Members Other:: 1 Housing: Apartment Do you presently have visiting nurse or other home services: No Alcohol intake: never Comment: was medicated Patient Tobacco Use Status: Former Tobacco user Tobacco use type: Cigarette e-Cigarette/Vaping Use: Never Used Second Hand Smoke Exposure: No service: No Current occupational status: unemployed and disabled Cognitive needs: No Hearing needs: No Vision needs: Yes Physical Exam Vital Signs: Last Vital Signs Pulse 68 12/30/24 10:15 Resp 16 12/30/24 10:15 BP 110/76 12/30/24 10:15 Pulse Ox 98 12/30/24 10:15 Oxygen Delivery Method Room Air 12/30/24 10:15 Assessment & Plan Assessment & Plan (1) Chronic back pain: Code(s): M54.9 - Dorsalgia, unspecified; G89.29 - Other chronic pain Category: Medical (2) Lumbar radicular pain: Code(s): M54.16 - Radiculopathy, lumbar region Category: Medical (3) Greater trochanteric pain syndrome: Code(s): M25.559 - Pain in unspecified hip Category: Medical Plan Plan - Schedule a repeat epidural steroid injection in six weeks to allow 3 month interval between consecutive interlaminar BENTON. Will repeat L4/5 left parasagittal. - Refer to physical therapy for right greater trochanteric pain syndrome. Patient was informed and verbally consented to the use of an ambient scribe for clinic note documentation during this visit. Discussion Notes I discussed with the patient the option of scheduling a repeat epidural steroid injection in six weeks to manage her returning pain symptoms. We also talked about referring her to physical therapy to address her right greater trochanteric pain syndrome. Patient Instructions - Schedule a repeat epidural steroid injection in six weeks. - Attend physical therapy sessions as scheduled for hip pain management. Orders: Orders PT Evaluation and Treatment Today M25.559 - Pain in unspecified hip, M54.16 - Radiculopathy, lumbar region Coding Level of Care Code Est Pt Level 4 (70438) Diagnoses Chronic back pain M54.9; G89.29 Lumbar radicular pain M54.16 Greater trochanteric pain syndrome M25.559
[2024-12-30 10:15] VITALS: BP 110/76; PULSE 68; RESP 16; O2SAT 98
== END 2024-12-30 10:43 | disposition home or self-care (01) ==
LOC: HO.PMC 10:12
PROVIDERS: PCP Internal Medicine; Visit Provider Internal Medicine
DX: M54.9 Dorsalgia, unspecified (principal); G89.29 Other chronic pain; M54.16 Radiculopathy, lumbar region; M25.559 Pain in unspecified hip
CPT/HCPCS: 99214

== ENCOUNTER → 2024-12-30 10:11 | Outpatient (BNVA) | payer OTHER, SELFPAY | PROVIDERS: PCP Internal Medicine; Visit Provider Internal Medicine | DX: M54.16 Radiculopathy, lumbar region (principal); M54.9 Dorsalgia, unspecified; G89.29 Other chronic pain; M25.551 Pain in right hip | CPT/HCPCS: 99212 ==

== ENCOUNTER 2025-01-05 08:20 | Outpatient (AMB) | payer OTHER, SELFPAY ==
--- NOTE | 2025-01-05 10:56 | MHC.PC.OV ---
Intake Visit Reasons: jury duty letter Allergies No Known Allergies Allergy (Verified 12/30/24 10:15) Medication List - Last Reconciled 01/05/25 by Dunia Guajardo MD duloxetine 20 mg PO BID lamotrigine 25 mg PO BID lorazepam 0.5 mg PO DAILY PRN trazodone 100 mg PO BEDTIME Tobacco use date assessed: 04/15/23 Dental Screening Dental Screen Date: 04/15/23 HPI jury duty letter HPI Details History - The patient is a 64-year-old female presenting with a request for a medical exemption from jury duty. - The patient reports a history of spinal stenosis, which limits her ability to sit or stand for extended periods. - Additionally, the patient reports experiencing anxiety and depression, which contribute to her inability to fulfill jury duty responsibilities. - The duty in question is scheduled for March 29. - The exemption request must be submitted by January 09. Medical History: - Spinal stenosis - Depression - Anxiety Problem List - Spinal Stenosis - Depression - Anxiety Patient Instructions - The patient's exemption letter will be prepared by tomorrow afternoon for pick-up. - The option for faxing the letter is available if required. Review of Systems - General: No fever no chills - Neurological: No headaches no dizziness - Ear nose throat: No sore throat no hearing difficulty no ear pain - Cardiovascular: No syncope, no chest pain, no palpitations - Gastrointestinal: No nausea vomiting or diarrhea PFSH Medical History Cyst of skin of breast Vaginal odor Abnormal Pap smear of cervix Chronic back pain Depression Anxiety Homeless Fibromyalgia Surgical History Hx of appendectomy Hx of cholecystectomy Family History Mother Kidney cancer Father Medical history unknown Daughter FH: HTN (hypertension) Diabetes Other Mental health disorder Social History Household Members: Children Household Members Other:: 1 Housing: Apartment Do you presently have visiting nurse or other home services: No Alcohol intake: never Comment: was medicated Patient Tobacco Use Status: Former Tobacco user Tobacco use type: Cigarette e-Cigarette/Vaping Use: Never Used Second Hand Smoke Exposure: No service: No Current occupational status: unemployed and disabled Cognitive needs: No Hearing needs: No Vision needs: Yes Questionnaire Thrive Questionnaire Date Thrive assessed: 04/26/24 I am a: Patient What is your living situation today?: I have a steady place to live Within the past 12 months, did the food you bought not last and you didn't have the money to get more?: Sometimes True Within the past 12 months, did you worry whether your food would run out before you got money to buy more?: Sometimes True Do you have trouble paying for medicines?: No Do you have trouble getting transportation to medical appointments?: No Do you have trouble paying your heating and electricity bill?: No Do you have trouble taking care of your child, family member or friend?: No Do you have trouble with day-to-day activities such as bathing, preparing meals, shopping, managing finances, etc.?: No Are you currently unemployed and looking for a job?: Yes Are you interested in more education?: No Please select the resources that you would like help with: None Currently or been in a relationship where the following occur: No concerns reported THRIVE Score: 2 TAY-7 AMB Questionnaire TAY-7 Date TAY - 7 assessed: 02/20/23 Source: Developed by Drs. Brendon Garduno, Sara Zhao, Castro Cerrato and colleagues, with an educational nichol from [employer]. Physical exam (Primary Care) Tobacco/Smoking Status: Tobacco use Status Tobacco use date assessed 04/15/23 01/05/25 10:57 Patient Tobacco Use Status Former Tobacco user 01/05/25 10:57 Tobacco use type Cigarette 01/05/25 10:57 e-Cigarette/Vaping Use Never Used 01/05/25 10:57 Thrive Assessment: Date of Thrive Assessment Date Thrive assessed 04/26/24 01/05/25 10:57 Currently or been in a relationship where the following occur: No concerns reported Telehealth Telehealth Telehealth Platform: [employer] Location of provider rendering services: practice address Location of patient: address on file Patient Identification confirmed using: Name, : Yes Telehealth method: video (attempted) Patient verbally consented to treatment: Yes Patient verbally consented to billing insurance company: Yes Patient informed of any privacy concerns related to visit: Yes Minutes spent on Phone/Video with Pt.: 13 Coding Level of Care Code Tele Est Pt Level 3 (82545) Diagnoses Anxiety F41.9 Recurrent major depressive disorder, in partial remission F33.41 Active/Remission status: in partial remission Spinal stenosis, lumbar region with neurogenic claudication M48.062 Assessment & Plan Assessment & Plan (1) Anxiety: Code(s): F41.9 - Anxiety disorder, unspecified Category: Medical (2) Major depression, recurrent: Code(s): F33.9 - Major depressive disorder, recurrent, unspecified Category: Medical Qualifiers: Active/Remission status: in partial remission Qualified Code(s): F33.41 - Major depressive disorder, recurrent, in partial remission (3) Spinal stenosis, lumbar region with neurogenic claudication: Code(s): M48.062 - Spinal stenosis, lumbar region with neurogenic claudication Category: Medical Plan History - The patient is a 64-year-old female presenting with a request for a medical exemption from jury duty. - The patient reports a history of spinal stenosis, which limits her ability to sit or stand for extended periods. - Additionally, the patient reports experiencing anxiety and depression, which contribute to her inability to fulfill jury duty responsibilities. - The duty in question is scheduled for March 29. - The exemption request must be submitted by January 09. Medical History: - Spinal stenosis - Depression - Anxiety Problem List - Spinal Stenosis - Depression - Anxiety Patient Instructions - The patient's exemption letter will be prepared by tomorrow afternoon for pick-up. - The option for faxing the letter is available if required.
== END 2025-01-05 12:04 | disposition home or self-care (01) ==
LOC: HO.HMCC 08:20
PROVIDERS: PCP Internal Medicine; Visit Provider Internal Medicine
DX: F41.9 Anxiety disorder, unspecified (principal); F33.41 Major depressive disorder, recurrent, in partial remission; M48.062 Spinal stenosis, lumbar region with neurogenic claudication

== ENCOUNTER 2025-01-26 15:44 | Outpatient (REF) | payer OTHER, SELFPAY ==
--- NOTE | ~2025-01-26 | MM_ITS ---
EXAMINATION: MM SCREENING DIGITAL BREAST TOMOSYNTHESIS, BILATERAL CLINICAL INFORMATION: Screening. Asymptomatic. COMPARISON: Mammography: Comparison is made with available priors TECHNIQUE: Digital breast mammography with tomosynthesis is performed in both the craniocaudal and mediolateral oblique views along with computer-aided detection (CAD). FINDINGS: There are scattered areas of fibroglandular density (ACR BI-RADS breast composition Category b). There are no significant masses, abnormal calcifications, or other abnormalities. MM/MM tomosynthesis screening BI IMPRESSION: No mammographic evidence of malignancy. ASSESSMENT: BI-RADS BI-RADS 1 - Negative RECOMMENDATION: Routine annual mammography screening. 1 year F/U This examination should not preclude the clinical evaluation of a suspicious palpable abnormality. This patient's information was entered into a reminder system with a target due date for their next mammogram. Electronically signed by: Nallely Juan DO 01/31/2025 02:01 PM EDT
== END 2025-01-26 15:45 | disposition home or self-care (01) ==
LOC: HO.MAMMO 15:44
PROVIDERS: PCP Internal Medicine; Visit Provider Internal Medicine
DX: Z12.31 Encounter for screening mammogram for malignant neoplasm of breast (principal)
CPT/HCPCS: 77063; 77067

== ENCOUNTER → 2025-01-26 15:45 | Outpatient (BNV) | payer OTHER, SELFPAY | PROVIDERS: PCP Internal Medicine; Visit Provider Internal Medicine | DX: Z12.31 Encounter for screening mammogram for malignant neoplasm of breast (principal) | CPT/HCPCS: 77063; 77067 ==

== ENCOUNTER 2025-02-03 09:53 | Outpatient (AMB) | payer OTHER, SELFPAY ==
--- NOTE | 2025-02-03 09:54 | MHC.OFFVIS ---
Intake Visit Reasons: s/p Left L4-L5 BENTON 11/17/24 Allergies No Known Allergies Allergy (Verified 12/30/24 10:15) HPI HPI s/p Left L4-L5 BENTON 11/17/24: Details: History of Present Illness The patient is a 64-year-old female presenting for chronic pain management. She reports experiencing 90% relief for approximately four weeks following her last epidural steroid injection followed by 50% relief for the following weeks. The pain has been persistent, and she is requesting a different corticosteroid formulation to potentially achieve longer-term relief. The patient is currently two months post her last injection, and the plan is to request authorization for a repeat injection at the three-month shweta. Pain Description - Relief: 90% relief for approximately four weeks post-injection, then 50% - Duration: Persistent pain two months post-injection - Plan: Considering different corticosteroid formulation for longer-term relief Physical Exam - Appears afebrile. - Alert and oriented. - Mood and affect appropriate. - Follows and participates in conversation appropriately. - Respiratory effort is unlabored. - Able to transition from sit to stand unassisted. Pain Management - Analgesia: 90% relief for four weeks post-injection - Activities of Daily Living: Persistent pain impacting daily activities PFSH Medical History Cyst of skin of breast Vaginal odor Abnormal Pap smear of cervix Chronic back pain Depression Anxiety Homeless Fibromyalgia Surgical History Hx of appendectomy Hx of cholecystectomy Family History Mother Kidney cancer Father Medical history unknown Daughter FH: HTN (hypertension) Diabetes Other Mental health disorder Social History Household Members: Children Household Members Other:: 1 Housing: Apartment Do you presently have visiting nurse or other home services: No Alcohol intake: never Comment: was medicated Patient Tobacco Use Status: Former Tobacco user Tobacco use type: Cigarette e-Cigarette/Vaping Use: Never Used Second Hand Smoke Exposure: No service: No Current occupational status: unemployed and disabled Cognitive needs: No Hearing needs: No Vision needs: Yes Telehealth Telehealth [facility]health [facility] Location of provider rendering services: practice address Location of patient: address on file Patient Identification confirmed using: Name, : Yes Telehealth method: video Patient verbally consented to treatment: Yes Patient verbally consented to billing insurance company: Yes Patient informed of any privacy concerns related to visit: Yes Assessment & Plan Assessment & Plan (1) Lumbar radicular pain: Code(s): M54.16 - Radiculopathy, lumbar region Category: Medical Plan Plan - Submit authorization request for TFESI L4/5 left at three-month shweta. Patient was informed and verbally consented to the use of an ambient scribe for clinic note documentation during this visit. Discussion Notes I discussed with the patient that the last injection provided 50% relief for about four weeks. We talked about the possibility of using a different corticosteroid formulation to achieve longer-term relief. I explained that we will request authorization for a repeat injection at the three-month shweta. Patient Instructions - Await authorization for repeat injection at three-month shweta. - Consider discussing different corticosteroid options for longer-term relief. Coding Level of Care Code Est Pt Level 3 (38977) Diagnoses Lumbar radicular pain M54.16
== END 2025-02-03 09:54 | disposition home or self-care (01) ==
LOC: HO.PMC 09:53
PROVIDERS: PCP Internal Medicine; Visit Provider Internal Medicine
DX: M54.16 Radiculopathy, lumbar region (principal)
CPT/HCPCS: 99213

== ENCOUNTER → 2025-02-03 09:53 | Outpatient (BNVA) | payer OTHER, SELFPAY | PROVIDERS: PCP Internal Medicine; Visit Provider Internal Medicine | DX: M54.16 Radiculopathy, lumbar region (principal) | CPT/HCPCS: 99212 ==

== ENCOUNTER 2025-04-06 06:22 | Outpatient (REF) | payer OTHER, SELFPAY ==
--- NOTE | ~2025-04-06 | FL_ITS ---
EXAMINATION: FL GUIDANCE ONLY HISTORY: M54.16 - Radiculopathy, lumbar region COMPARISON: None available. TECHNIQUE: Fluoroscopy time: 0.3 minutes. Cumulative Dose: 5.40 mGy. DAP: 9 4.22 uGym2 Images: 5. FINDINGS: Fluoroscopic spot films of the lumbar spine demonstrate a needle and contrast material in the region of the left L4-5 facet joint. FL/FL guidance in treatment room IMPRESSION: Fluoroscopy during procedure. Please see procedure report for additional information. Electronically signed by: Brendon Son MD 04/06/2025 03:14 PM EDT
== END 2025-04-06 06:23 | disposition home or self-care (01) ==
LOC: CF 06:22
PROVIDERS: Visit Provider Internal Medicine
DX: M54.16 Radiculopathy, lumbar region (principal)
CPT/HCPCS: 64483; J1100; J2003; Q9967

== ENCOUNTER 2025-04-06 12:20 | Outpatient (AMB) | payer OTHER, SELFPAY ==
[2025-04-06 12:25] VITALS: BP 130/70; PULSE 79; RESP 16; O2SAT 96
--- NOTE | 2025-04-06 12:25 | MHC.OFFVIS ---
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 Denies any recent cough, cold, infection, fever or other significant changes in medical history since last office visit. [facility] Medical History Cyst of skin of breast Vaginal odor Abnormal Pap smear of cervix Chronic back pain Depression Anxiety Homeless Fibromyalgia Surgical History Hx of appendectomy Hx of cholecystectomy Family History Mother Kidney cancer Father Medical history unknown Daughter FH: HTN (hypertension) Diabetes Other Mental health disorder Social History Household Members: Children Household Members Other:: 1 Housing: Apartment Do you presently have visiting nurse or other home services: No Alcohol intake: never Comment: was medicated Patient Tobacco Use Status: Former Tobacco user Tobacco use type: Cigarette e-Cigarette/Vaping Use: Never Used Second Hand Smoke Exposure: No service: No Current occupational status: unemployed and disabled Cognitive needs: No Hearing needs: No Vision needs: Yes Physical Exam Vital Signs: Last Vital Signs Pulse 87 04/06/25 13:04 Resp 16 04/06/25 13:04 BP 140/82 H 04/06/25 13:04 Pulse Ox 97 04/06/25 13:04 Oxygen Delivery Method Room Air 04/06/25 13:04 Office Procedures Details: Transforaminal epidural steroid injection, LEFT L4 After obtaining written consent, pre-procedure blood pressure and heart rate were stable and recorded in the nursing record. The patient was placed in the prone position on the fluoroscopy table. The lumbosacral area was prepped with chloraprep, allowed to dry and draped in sterile fashion. Using fluoroscopy, the skin overlying our target was anesthetized with 0.5% lidocaine. A 22 gauge 3.5 inch spinal needle was advanced to the safe triangle in the upper pole of the left L4 foramen. No paresthesias were elicited with needle placement and aspiration was negative for blood and CSF. Correct needle position was confirmed with approximately 1 ml contrast dye (Omnipaque 180 mg/ml) injected under real-time fluoroscopy. No evidence of vascular or intrathecal uptake was seen and there was both epidural and peripheral spread of the contrast agent. 10 mg dexamethasone plus 1 ml containing 0.5% lidocaine was slowly injected. The needle was flushed and removed. The skin was cleansed and a sterile bandages were applied. The patient tolerated the procedure well and no complications were encountered. Following the procedure the patient's vital signs were stable. The patient was discharged home in good condition with post-procedural instructions. Time Out: Immediately prior to the procedure, the following was verbally confirmed that there is a signed consent form and that the correct patient, planned procedure, site and side are consistent with documentation and that necessary equipment and/or blood products are available prior to the start of the case. Complications: none EBL: <5 cc 32468 - Lumbar/Sacral Procedure code (CPT) selection complete Assessment & Plan Assessment & Plan (1) Lumbar radicular pain: Code(s): M54.16 - Radiculopathy, lumbar region Category: Medical Plan Patient is status post left L4-5 transforaminal epidural steroid injection. Patient tolerated procedure well and was discharged home in stable condition with discharge instructions. All questions were answered. We will follow-up via telephone or in clinic to assess response to therapy. A follow-up appointment was made during today's visit. Orders: Orders AMB Transforaminal Epidural Steroid Injection Today Demario Llanos MD M54.16 - Radiculopathy, lumbar region FL guidance in treatment room Today Mary Orr, SUPERVISOR [employer], TELEPHONE BETTING CLERK M54.16 - Radiculopathy, lumbar region Coding Level of Care Code Procedure Only Diagnoses Lumbar radicular pain M54.16 CPT Codes Transforaminal Epidural Steroid Inj - TESI 3: 11844 - Lumbar/Sacral ([id number])
[2025-04-06 13:04] VITALS: BP 140/82; PULSE 87; RESP 16; O2SAT 97
== END 2025-04-06 13:06 | disposition home or self-care (01) ==
LOC: HO.PMCPRC 12:20
PROVIDERS: PCP Internal Medicine; Visit Provider Internal Medicine
DX: M54.16 Radiculopathy, lumbar region (principal)
CPT/HCPCS: 64483

== ENCOUNTER 2025-05-29 11:50 | Outpatient (AMB) | payer OTHER, SELFPAY ==
--- NOTE | 2025-05-29 11:56 | A.OFFVIS_ITS ---
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 She reports the recent injection provided only one week of relief, and she has noted a progressive loss of effectiveness from prior lumbar intralaminar epidural steroid injections. Her primary symptom is bilateral leg pain, described as heaviness and pain that radiates down both legs. The pain is exacerbated by prolonged sitting or standing and she denies significant back pain or pain with ambulation. A review of her MRI reveals a disc bulge with degenerative changes at L4-5, contributing to moderate to severe stenosis. The MRI also shows a disc bulge at L5-S1 and endplate degeneration at multiple levels. Pain Description - Location: Bilateral lower extremities, with minimal back pain. - Quality: Heaviness and pain. - Radiation: Down both legs. - Exacerbating factors: Prolonged sitting or standing. - Associated symptoms: Denies pain with ambulation. Results - MRI Lumbar Spine: Findings include an L4-5 disc bulge with degenerative changes causing moderate to severe stenosis, an L5-S1 disc bulge, and multilevel endplate degeneration. Pain Management - Analgesia: The patient has a history of receiving lumbar intralaminar and a recent left L4-5 transforaminal epidural steroid injection, which have shown progressively diminishing effectiveness, with the latest injection providing only one week of relief. - Activities of Daily Living: Pain and heaviness in both legs occur with prolonged sitting or standing. [facility] Medical History Cyst of skin of breast Vaginal odor Abnormal Pap smear of cervix Chronic back pain Depression Anxiety Homeless Fibromyalgia Surgical History Hx of appendectomy Hx of cholecystectomy Family History Mother Kidney cancer Father Medical history unknown Daughter FH: HTN (hypertension) Diabetes Other Mental health disorder Social History Household Members: Children Household Members Other:: 1 Housing: Apartment Do you presently have visiting nurse or other home services: No Alcohol intake: never Comment: was medicated Patient Tobacco Use Status: Former Tobacco user Tobacco use type: Cigarette e-Cigarette/Vaping Use: Never Used Second Hand Smoke Exposure: No service: No Current occupational status: unemployed and disabled Cognitive needs: No Hearing needs: No Vision needs: Yes Physical Exam Exam Exam: Physical Exam - Appears afebrile. - Alert and oriented. - Mood and affect appropriate. - Follows and participates in conversation appropriately. - Respiratory effort is unlabored. Vital Signs: Last Vital Signs Pulse 82 05/29/25 11:57 Resp 16 05/29/25 11:57 BP 132/75 05/29/25 11:57 Pulse Ox 99 05/29/25 11:57 Oxygen Delivery Method Room Air 05/29/25 11:57 BMI result Body Mass Index 30.2 Assessment & Plan Assessment & Plan (1) Lumbar radiculopathy: Code(s): M54.16 - Radiculopathy, lumbar region Category: Medical Plan Patient was informed and verbally consented to the use of an ambient scribe for clinic note documentation during this visit. 1. Chronic Lumbar Radiculopathy - The patient's bilateral lower extremity radicular pain is not responsive to conservative measures, including epidural steroid injections. - She is interested in proceeding with a trial of lumbar spinal cord stimulation. - A referral will be sent for a psychology clearance for a trial with a [employer] spinal cord stimulator. Discussion Notes I have reviewed the patient's history of chronic lumbar radiculopathy and the progressive loss of effectiveness from epidural steroid injections, with her most recent left L4-5 transforaminal [place] providing only one week of relief. We discussed that given her bilateral lower extremity radicular pain and MRI findings of moderate to severe stenosis, and the failure of conservative treatments, she is a candidate for a lumbar spinal cord stimulation trial. I explained that the next step is to obtain a psychology clearance for the procedure. The patient is interested in proceeding with the trial and is on board with the plan. Patient Instructions - We will refer you for a psychology clearance, which is a required step before proceeding with a spinal cord stimulator trial. - The spinal cord stimulator trial is being considered to help manage the pain, and heaviness you feel in your legs when sitting or standing for too long. Coding Level of Care Code Est Pt Level 3 (15658) Diagnoses Lumbar radiculopathy M54.16
[2025-05-29 11:57] VITALS: BP 132/75; PULSE 82; RESP 16; O2SAT 99; BMI 30.2
== END 2025-05-29 12:30 | disposition home or self-care (01) ==
LOC: HO.PMC 11:50
PROVIDERS: PCP Internal Medicine; Visit Provider Internal Medicine
DX: M54.16 Radiculopathy, lumbar region (principal)
CPT/HCPCS: 99213

== ENCOUNTER → 2025-05-29 11:50 | Outpatient (BNVA) | payer OTHER, SELFPAY | PROVIDERS: PCP Internal Medicine; Visit Provider Internal Medicine | DX: M54.16 Radiculopathy, lumbar region (principal); G89.29 Other chronic pain | CPT/HCPCS: 99212 ==